=== PATIENT | female | born 1950 | race Caucasian/White ===

== ENCOUNTER 2018-06-17 14:59 | Emergency (ER) | payer MEDICARE, OTHER, SELFPAY ==
[2018-06-17 15:00] VITALS: BP 157/79; PULSE 84; RESP 20; TEMP 36.4; O2SAT 97; BMI 35.2
--- NOTE | 2018-06-17 15:06 | ED.ABDPAIN ---
HPI - Abdominal Pain <Rani Singh PA-C - Last Filed: 06/17/18 21:19> General Chief Complaint: Abdominal Pain Stated Complaint: lower left side extreme pain Time Seen by Provider: 06/17/18 15:05 Source: patient Mode of arrival: ambulatory Limitations: no limitations History of Present Illness HPI narrative: This 67-year-old female comes in today with complaint of left-sided abdominal pain which she thinks is recurrent diverticulitis. She states that she has had this many times and wanted to get this addressed early as it tends to be worse when she waits as in the past. She states that pain started yesterday, on the left side mainly in the lower abdomen. She states that she has been drinking a little bit of fluids today but has avoided eating because ?I know better?. She states she did eat some pumpkin pie last night. She states pain has increased slightly today, better lying flat, worse with trying to eat or moving around. She states that she has a little bit of nausea, has not had any vomiting. She denies any fever, chills, sweats. She denies any flank pain. She denies any urinary symptoms. She denies any bowel habit changes or blood in the stools. She denies any chest pain, dyspnea, or other new complaints and states that this feels similar to previous diverticulitis. She states that she also has a history of duodenal ulcer a long time ago and this pain feels much different than that. Related Data Previous Rx's Medication Instructions Recorded levofloxacin [Levaquin] 750 mg PO DAILY 7 Days tab 06/17/18 metronidazole [Flagyl] 500 mg PO TID #21 tab 06/17/18 tramadol 50 mg PO Q6H PRN #10 tab 06/17/18 Allergies Allergy/AdvReac Type Severity Reaction Status Date / Time aspirin Allergy Verified 06/17/18 15:38 Review of Systems <Rani Singh PA-C - Last Filed: 06/17/18 21:19> Review of Systems All systems reviewed & are unremarkable except as noted in HPI and below Exam <Rani Singh PA-C - Last Filed: 06/17/18 21:19> Narrative Exam Narrative: GENERAL APPEARANCE: Patient resting comfortably, in no distress. HEENT: PERRL, EOMI, no scleral icterus, normal oropharynx NECK: Supple LUNGS: Clear to auscultation bilaterally. HEART: Rate and rhythm regular, normal S1 and S2, no S3 or S4. ABDOMEN: Soft, nondistended, bowel sounds present x 4 quadrants, no masses palpable, no hepatosplenomegaly. Moderate left lower to left mid quadrant tenderness without guarding or rebound. No tenderness elsewhere. No CVAT EXTREMITIES: No edema, no calf tenderness DERMATOLOGIC: No jaundice or exanthem NEUROLOGIC: Alert and oriented with normal speech and coordination Initial Vital Signs Initial Vital Signs: Vital Signs Temperature 97.5 F L 06/17/18 15:00 Pulse Rate 84 06/17/18 15:00 Respiratory Rate 20 06/17/18 15:00 Blood Pressure 157/79 H 06/17/18 15:00 Pulse Oximetry 97 06/17/18 15:00 <Pola Arreola DO - Last Filed: 06/18/18 07:01> Initial Vital Signs Initial Vital Signs: Vital Signs Temperature 97.5 F L 06/17/18 15:00 Pulse Rate 84 06/17/18 15:00 Respiratory Rate 20 06/17/18 15:00 Blood Pressure 157/79 H 06/17/18 15:00 Pulse Oximetry 97 06/17/18 15:00 Course <Rani Singh PA-C - Last Filed: 06/17/18 21:19> Additional Information: patient is feeling markedly improved prior to discharge. Given her history and findings, reasonable to treat her as an outpatient. Antibiotics were started here and she was given a sufficient supply until morning. She uses tramadol at home for exacerbations and can continue this as needed. She agree to return if any acutely worsening symptoms. Orders Ordered: Discontinued Medications Hydromorphone HCl (Dilaudid) 0.5 mg IV NOW ONE Stop: 06/17/18 15:22 Last Admin: 06/17/18 15:49 Dose: 0.5 mg Sodium Chloride (Normal Saline 0.9%) 1,000 mls @ 1,000 mls/hr IV BOLUS ONE Stop: 06/17/18 16:20 Last Infusion: 06/17/18 17:02 Dose: 0 mls/hr Admin: 06/17/18 15:46 Dose: 1,000 mls/hr Ketorolac Tromethamine (Toradol) 15 mg IV NOW ONE Stop: 06/17/18 15:22 Last Admin: 06/17/18 15:48 Dose: 15 mg Levofloxacin (Levaquin) 750 mg PO NOW ONE Stop: 06/17/18 16:24 Last Admin: 06/17/18 16:59 Dose: 750 mg Metronidazole (Metronidazole) 500 mg PO Q8H Stop: 06/17/18 23:59 Ondansetron HCl (Zofran Odt) 4 mg PO NOW ONE Stop: 06/17/18 15:22 Last Admin: 06/17/18 15:49 Dose: 4 mg Ondansetron HCl (Zofran Odt Prepack) 1 bottle MISC SEEINSTR ONE Stop: 06/17/18 17:24 Last Admin: 06/17/18 17:43 Dose: 1 bottle Tramadol HCl (Ultram 50mg Prepack) 1 bottle MISC SEEINSTR ONE Stop: 06/17/18 17:24 Last Admin: 06/17/18 17:42 Dose: 1 bottle Vital Signs - 8 hr 06/17/18 15:00 06/17/18 15:45 06/17/18 16:00 Temperature 97.5 F L Pulse Rate 84 74 76 Respiratory Rate 20 16 16 Blood Pressure 157/79 H Blood Pressure [Left Arm] 136/40 L 132/66 Pulse Oximetry 97 96 93 06/17/18 16:08 06/17/18 16:30 06/17/18 17:54 Temperature Pulse Rate 71 71 Respiratory Rate 19 16 Blood Pressure Blood Pressure [Left Arm] 136/67 136/67 Pulse Oximetry 88 L 97 96 <Pola Arreola DO - Last Filed: 06/18/18 07:01> Orders Ordered: Discontinued Medications Hydromorphone HCl (Dilaudid) 0.5 mg IV NOW ONE Stop: 06/17/18 15:22 Last Admin: 06/17/18 15:49 Dose: 0.5 mg Sodium Chloride (Normal Saline 0.9%) 1,000 mls @ 1,000 mls/hr IV BOLUS ONE Stop: 06/17/18 16:20 Last Infusion: 06/17/18 17:02 Dose: 0 mls/hr Admin: 06/17/18 15:46 Dose: 1,000 mls/hr Ketorolac Tromethamine (Toradol) 15 mg IV NOW ONE Stop: 06/17/18 15:22 Last Admin: 06/17/18 15:48 Dose: 15 mg Levofloxacin (Levaquin) 750 mg PO NOW ONE Stop: 06/17/18 16:24 Last Admin: 06/17/18 16:59 Dose: 750 mg Metronidazole (Metronidazole) 500 mg PO Q8H Stop: 06/17/18 23:59 Ondansetron HCl (Zofran Odt) 4 mg PO NOW ONE Stop: 06/17/18 15:22 Last Admin: 06/17/18 15:49 Dose: 4 mg Ondansetron HCl (Zofran Odt Prepack) 1 bottle MISC SEEINSTR ONE Stop: 06/17/18 17:24 Last Admin: 06/17/18 17:43 Dose: 1 bottle Tramadol HCl (Ultram 50mg Prepack) 1 bottle MISC SEEINSTR ONE Stop: 06/17/18 17:24 Last Admin: 06/17/18 17:42 Dose: 1 bottle Vital Signs - 8 hr 06/17/18 15:00 06/17/18 15:45 06/17/18 16:00 Temperature 97.5 F L Pulse Rate 84 74 76 Respiratory Rate 20 16 16 Blood Pressure 157/79 H Blood Pressure [Left Arm] 136/40 L 132/66 Pulse Oximetry 97 96 93 06/17/18 16:08 06/17/18 16:30 06/17/18 17:54 Temperature Pulse Rate 71 71 Respiratory Rate 19 16 Blood Pressure Blood Pressure [Left Arm] 136/67 136/67 Pulse Oximetry 88 L 97 96 MDM - Abdominal Pain <Rani Singh PA-C - Last Filed: 06/17/18 21:19> Lab Data Result diagrams: 06/17/18 15:26 06/17/18 15:26 Lab Results 06/17/18 06/17/18 Range/Units 15:26 15:26 WBC 10.5 (4.5-11.0) X10^3/uL RBC 5.05 (4.0-5.2) X10^6/uL Hgb 12.9 (12.0-16.0) g/dL Hct 39.8 (36-46) % MCV 78.8 L (80-100) fL MCH 25.6 L (26-34) PG MCHC 32.5 (30-36) % RDW 14.8 (11.6-14.8) % Plt Count 322 (150-400) X10^3/uL Neut % (Auto) 72.6 (50-75) % Lymph % (Auto) 17.2 L (25-40) % [place] % (Auto) 8.2 (3-14) % Eos % (Auto) 1.4 L (2-4) % Baso % (Auto) 0.6 (0-2) % Neut # (Auto) 7600 H (1104-4903) /uL Sodium 143 (137-145) mmol/L Potassium 4.3 (3.4-5.1) mmol/L Chloride 100 (98-107) mmol/L Carbon Dioxide 30 (22-32) mmol/L BUN 13 (7-17) mg/dL Creatinine 0.80 (0.52-1.04) mg/dL Estimated GFR > 60.0 (>60) mL/min BUN/Creatinine Ratio 16.3 (6-22) Glucose 106 (80-110) mg/dL Calcium 9.2 (8.4-10.2) mg/dL Total Bilirubin 0.4 (0.2-1.3) mg/dL AST 24 (14-36) IU/L ALT 27 (9-52) IU/L Alkaline Phosphatase 102 (38-126) U/L Total Protein 7.9 (6.3-8.2) g/dL Albumin 4.3 (3.5-5.0) g/dL Globulin 3.6 (1.7-4.1) g/dL Albumin/Globulin Ratio 1.2 (1.0-2.8) Lipase 36 (23-300) U/L <Pola Arreola, - Last Filed: 06/18/18 07:01> Lab Data Lab Results 06/17/18 06/17/18 Range/Units 15:26 15:26 WBC 10.5 (4.5-11.0) X10^3/uL RBC 5.05 (4.0-5.2) X10^6/uL Hgb 12.9 (12.0-16.0) g/dL Hct 39.8 (36-46) % MCV 78.8 L (80-100) fL MCH 25.6 L (26-34) PG MCHC 32.5 (30-36) % RDW 14.8 (11.6-14.8) % Plt Count 322 (150-400) X10^3/uL Neut % (Auto) 72.6 (50-75) % Lymph % (Auto) 17.2 L (25-40) % [place] % (Auto) 8.2 (3-14) % Eos % (Auto) 1.4 L (2-4) % Baso % (Auto) 0.6 (0-2) % Neut # (Auto) 7600 H (7419-4341) /uL Sodium 143 (137-145) mmol/L Potassium 4.3 (3.4-5.1) mmol/L Chloride 100 (98-107) mmol/L Carbon Dioxide 30 (22-32) mmol/L BUN 13 (7-17) mg/dL Creatinine 0.80 (0.52-1.04) mg/dL Estimated GFR > 60.0 (>60) mL/min BUN/Creatinine Ratio 16.3 (6-22) Glucose 106 (80-110) mg/dL Calcium 9.2 (8.4-10.2) mg/dL Total Bilirubin 0.4 (0.2-1.3) mg/dL AST 24 (14-36) IU/L ALT 27 (9-52) IU/L Alkaline Phosphatase 102 (38-126) U/L Total Protein 7.9 (6.3-8.2) g/dL Albumin 4.3 (3.5-5.0) g/dL Globulin 3.6 (1.7-4.1) g/dL Albumin/Globulin Ratio 1.2 (1.0-2.8) Lipase 36 (23-300) U/L Discharge Plan Departure Patient Disposition: Home Clinical Impression: Diverticulitis Discharge Date/Time: 06/17/18 17:59 Interventions: ED Discharge Assessment Last Done: 06/17/18 17:58 Instructions: Diverticulitis Activity Restrictions/Additional Instructions: I agree with you that you likely have recurrent diverticulitis based on your exam and testing today. Since you have address this early, it is reasonable to treat to as an outpatient with oral antibiotics, however you need to return as we talked about if you have any acutely worsening symptoms such as severe pain, or new symptoms such as protracted vomiting or fever. You have had the 1st dose of levofloxacin (related to ciprofloxacin that you have taken in the past) this evening, and you will not need another dose until tomorrow evening. Take an additional metronidazole at bedtime this evening and another dose tomorrow morning. Please seed cone picker the remainder of these prescriptions at your pharmacy tomorrow. I have also given you a prescription for tramadol if needed for pain since you have done well with that in the past. Please take it with Tylenol as they work well together. Please follow-up with your PCP for recheck in 2-3 days to recheck. Please avoid solid food and to your feeling better, continue clear liquids, broths, and then you can start on low residue, bland foods such as applesauce, white rice, and bananas as you start to feel better, and gradually resume your normal diet as you have in the past with your diverticulitis flares Prescriptions: New metronidazole [Flagyl] 500 mg tablet 500 mg PO TID Qty: 21 RF: 0 tramadol 50 mg tablet 50 mg PO Q6H PRN (Reason: acute abdominal pain) Qty: 10 RF: 0 levofloxacin [Levaquin] 750 mg tablet 750 mg PO DAILY 7 Days RF: 0 Referrals: Bibiana Hollingsworth ARNP [Non-Staff] - <Pola Arreola DO - Last Filed: 06/18/18 07:01> [facility] Attestation: I was available for consultation during this patient's emergency department encounter
[2018-06-17 15:45] VITALS: BP 136/40; PULSE 74; RESP 16; O2SAT 96
[2018-06-17] MEDS: SODIUM CHLORIDE 0.9% 1,000 ML 1000 ML IV (15:46)
[2018-06-17 15:48] LABS: Alanine Aminotransferase 27 IU/L (9-52); Albumin 4.3 g/dL (3.5-5.0); Albumin Globulin Ratio 1.2 (1.0-2.8); Alkaline Phosphatase 102 U/L (38-126); Aspartate Aminotransferase 24 IU/L (14-36); BUN Creatinine Ratio 16.3 (6-22); Bilirubin Total 0.4 mg/dL (0.2-1.3); Blood Urea Nitrogen 13 mg/dL (7-17); Calcium 9.2 mg/dL (8.4-10.2); Carbon Dioxide 30 mmol/L (22-32); Chloride 100 mmol/L (98-107); Estimated Glomerular Filt Rate > 60.0 mL/min (>60); Globulin 3.6 g/dL (1.7-4.1); Glucose 106 mg/dL (80-110); HEMOLYSIS < 15 (0-50); Lipase 36 U/L (23-300); Potassium 4.3 mmol/L (3.4-5.1); Sodium 143 mmol/L (137-145); Total Protein 7.9 g/dL (6.3-8.2)
[2018-06-17] MEDS: KETOROLAC 15 MG/ML VIAL IV (15:48)
[2018-06-17] MEDS: HYDROMORPHONE 1 MG INJ 0.5 MG IV (15:49)
[2018-06-17] MEDS: ONDANSETRON 4 MG ODT PO (15:49)
[2018-06-17 15:55] LABS: Add Manual Diff / Slide Review NO; Basophils Percent Auto 0.6 % (0-2); Eosinophils Percent Auto 1.4 % (2-4); Hematocrit 39.8 % (36-46); Hemoglobin 12.9 g/dL (12.0-16.0); Lymphocytes Percent Auto 17.2 % (25-40); Mean Corpuscular HGB Conc 32.5 % (30-36); Mean Corpuscular Hemoglobin 25.6 PG (26-34); Mean Corpuscular Volume 78.8 fL (80-100); Monocytes Percent Auto 8.2 % (3-14); Neutrophils Absolute Auto 7600 /uL (3000-5900); Neutrophils Percent Auto 72.6 % (50-75); Platelet Count 322 X10^3/uL (150-400); Red Blood Cell Count 5.05 X10^6/uL (4.0-5.2); Red Cell Distribution Width 14.8 % (11.6-14.8); White Blood Cell Count 10.5 X10^3/uL (4.5-11.0)
[2018-06-17 16:00] VITALS: BP 132/66; PULSE 76; RESP 16; O2SAT 93
[2018-06-17 16:08] VITALS: O2SAT 88
--- NOTE | 2018-06-17 16:08 | PC.NURSE ---
oxygen applied 2lmp via nc. increase to 97 with o2
[2018-06-17 16:30] VITALS: BP 136/67; PULSE 71; RESP 19; O2SAT 97
[2018-06-17] MEDS: levoFLOXacin 250 MG TABLET 750 MG PO (16:59)
[2018-06-17] MEDS: TRAMADOL 50 MG PREPACK 1 BOTTLE MISC (17:42)
[2018-06-17] MEDS: ONDANSETRON 4 MG ODT PREPACK 1 BOTTLE MISC (17:43)
[2018-06-17 17:54] VITALS: BP 136/67; PULSE 71; RESP 16; O2SAT 96
== END 2018-06-17 17:59 | disposition home or self-care (01) ==
PROVIDERS: Emergency Provider Internal Medicine
DX: K57.92 Diverticulitis of intestine, part unspecified, without perforation or abscess without bleeding (principal)
CPT/HCPCS: 36591; 80053; 83690; 85025; 96361; 96374; 96375; 99283; 99284; J1170; J1885

== ENCOUNTER → 2018-10-14 13:18 | Outpatient (CLI) | payer MEDICARE, OTHER, SELFPAY ==
--- NOTE | 2018-10-14 | DI.CT.S_ITS ---
PROCEDURE: CT ABDOMEN WO/W CON INDICATIONS: Hepatomegaly TECHNIQUE: 4 phase scanning was performed. Non-contrast 5 mm axial sections acquired from the diaphragm to the iliac crests. Following the administration of intravenous contrast, 5 mm thick arterial-phase, portal venous-phase, and 5-minute delayed phase images were acquired through the liver. 5 mm thick coronal and sagittal reformats were performed. For radiation dose reduction, the following was used: automated exposure control, adjustment of mA and/or kV according to patient size. COMPARISON: [facility], , US LIMITED ABDOMEN, 09/23/2018, 9:37. FINDINGS: Image quality: Excellent. Lung bases: Lung bases are clear. Heart size is normal. Liver: 18.8 cm craniocaudad, and no hepatic mass or biliary distention is present. Liver appears fatty infiltrated, as was seen during recent ultrasound scanning 09/23/18. At the inferior margin of the anterior right hepatic lobe there is a sharply demarcated ovoid structure which measures water in the internal radiodensity and measures 3.3 cm AP, 3.7 cm transverse and approximately 2.9 cm craniocaudad. This shows a perceptible enhancing rim, thin and sharply demarcated, on delayed postcontrast imaging. The internal radiodensity does not increase. Other solid organs: Gallbladder appears absent, and patient reports having prior cholecystectomy in 1988.. Biliary system is non dilated. Pancreas is normal in morphology. Spleen is normal in size and enhancement. No adrenal nodules. Both kidneys demonstrate normal size and enhancement, without hydronephrosis or nephrolithiasis. Nodes and vessels: No retroperitoneal or mesenteric adenopathy by size criteria. Aorta and inferior vena cava are normal in size. Bowel and peritoneum: Unenhanced bowel loops are normal in caliber. No free fluid or air. Bones: No suspicious bony lesions. No vertebral body compression fractures. Miscellaneous: No ventral hernias. IMPRESSION: Fatty infiltration throughout the liver which is only mildly enlarged, without splenomegaly. No varices or ascites is found. Large body habitus, quality of visualization is somewhat limited. Within the liver parenchyma at the anterior border of the inferior right hepatic lobe there is a sharply demarcated ovoid structure measuring up to 3.3 x 3.7 x 2.9 cm which has water internal radiodensity and is not associated with abnormal internal enhancement. It does have a thin perceptible enhancing rim. Etiology is uncertain but likely benign. This structure is relatively easily seen by ultrasound and therefore can't be followed by ultrasound for globe changer time. Biopsy at this time would not be recommended. Rather, targeted single organ ultrasound followup of this cystic structure is recommended in 6 months, and 6 months thereafter to assess for globe changer time. The internal echotexture was mildly heterogeneous on the ultrasound scanning. Septations or internal flow was not seen. The internal heterogeneity could represent proteinaceous content but the followup by ultrasound is recommended to ensure that this remains a benign-appearing structure over time. Prior cholecystectomy. Dictated by: Tenzin Alberto M.D. on 10/14/2018 at 15:45 Approved by: Tenzin Alberto M.D. on 10/14/2018 at 15:54
== END ==
PROVIDERS: Visit Provider Internal Medicine Gastroenterology
DX: R16.0 Hepatomegaly, not elsewhere classified (principal); Z90.49 Acquired absence of other specified parts of digestive tract
CPT/HCPCS: 74170; Q9967

== ENCOUNTER 2018-11-02 20:07 | Emergency (ER) | payer MEDICARE, OTHER, SELFPAY ==
[2018-11-02 20:20] VITALS: BP 176/85; PULSE 111; RESP 20; TEMP 36.9; O2SAT 96; BMI 45.6
--- NOTE | 2018-11-02 22:25 | DI.RAD.S_ITS ---
PROCEDURE: XR CHEST 1V INDICATIONS: chest pain TECHNIQUE: One view of the chest was acquired. COMPARISON: None. FINDINGS: Surgical changes and devices: None. Lungs and pleura: Lungs are clear. No pleural effusions or pneumothorax. Mediastinum: Mediastinal contours appear normal. Heart size is normal. Bones and chest wall: No suspicious bony lesions. Overlying soft tissues appear unremarkable. IMPRESSION: Normal for age, source of current chest pain symptoms is not seen. Dictated by: Tenzin Alberto M.D. on 11/03/2018 at 8:26 Approved by: Tenzin Alberto M.D. on 11/03/2018 at 8:27
[2018-11-02] MEDS: SODIUM CHLORIDE 0.9% 1,000 ML 150 ML IV (22:31)
[2018-11-02 22:50] LABS: Add Manual Diff / Slide Review NO; Basophils Absolute Auto 0 /uL (0-100); Basophils Percent Auto 0.2 % (0-2); Eosinophils Absolute Auto 100 /uL (0-450); Eosinophils Percent Auto 0.5 % (2-4); Hematocrit 38.1 % (36-46); Hemoglobin 12.7 g/dL (12.0-16.0); Lymphocytes Absolute Auto 1600 /uL (1100-4500); Lymphocytes Percent Auto 12.7 % (25-40); Mean Corpuscular HGB Conc 33.4 % (30-36); Mean Corpuscular Hemoglobin 26.4 PG (26-34); Mean Corpuscular Volume 78.8 fL (80-100); Monocytes Absolute Auto 800 /uL (0-900); Monocytes Percent Auto 6.3 % (3-14); Neutrophils Absolute Auto 10300 /uL (1500-7000); Neutrophils Percent Auto 80.3 % (50-75); Platelet Count 297 X10^3/uL (150-400); Red Blood Cell Count 4.83 X10^6/uL (4.0-5.2); Red Cell Distribution Width 14.6 % (11.6-14.8); White Blood Cell Count 12.8 X10^3/uL (4.5-11.0)
[2018-11-02 23:01] LABS: Alanine Aminotransferase 22 IU/L (9-52); Albumin 4.4 g/dL (3.5-5.0); Albumin Globulin Ratio 1.2 (1.0-2.8); Alkaline Phosphatase 101 U/L (38-126); Aspartate Aminotransferase 21 IU/L (14-36); BUN Creatinine Ratio 12.2 (6-22); Bilirubin Total 0.4 mg/dL (0.2-1.3); Blood Urea Nitrogen 11 mg/dL (7-17); Calcium 9.2 mg/dL (8.4-10.2); Carbon Dioxide 27 mmol/L (22-32); Chloride 101 mmol/L (98-107); Creatine Kinase 39 U/L (30-135); Estimated Glomerular Filt Rate > 60.0 mL/min (>60); Globulin 3.8 g/dL (1.7-4.1); Glucose 140 mg/dL (80-110); HEMOLYSIS < 15 (0-50); Lipase 37 U/L (23-300); Potassium 4.1 mmol/L (3.4-5.1); Sodium 137 mmol/L (137-145); Total Protein 8.2 g/dL (6.3-8.2)
[2018-11-02 23:13] LABS: Troponin I < 0.012 ng/mL (0.01-0.034)
--- NOTE | 2018-11-02 23:15 | DI.CT.S_ITS ---
PROCEDURE: CT ABDOMEN PELVIS W CON INDICATIONS: severe abdominal pain, hx diverticulitis TECHNIQUE: After the administration of intravenous contrast, 5 mm thick sections acquired from the diaphragm to the symphysis. 5 mm coronal and sagittal reformats were acquired. For radiation dose reduction, the following was used: automated exposure control, adjustment of mA and/or kV according to patient size. COMPARISON: [facility], CT, CT ABDOMEN WO/W CON, 10/14/2018, 13:39. FINDINGS: Image quality: Excellent. ABDOMEN: Lung bases: Lung bases are clear. Heart size is normal. Solid organs: Liver is normal in size and enhancement except for the previously identified apparent cystic structure with a perceptible enhancing wall, anterior border of the liver parenchyma on the right, measuring up to 3.7 cm. Morphology is unchanged. No inflammation is associated. This was discussed in detail on the CT report from 10/14/18. Gallbladder has been resected. Biliary system is non dilated. Pancreas enhances normally. Spleen is normal in size and enhancement. No adrenal nodules. Kidneys demonstrate normal size and enhancement, without hydronephrosis. . Peritoneum and bowel: Small bowel loops demonstrate normal wall thickness and caliber. The colon however demonstrates relatively prominent diverticulosis, more prominently involved distally than proximally but currently in the middle third of the transverse colon there is acute diverticulitis without peridiverticular abscess as indicated by mild mural thickening of the transverse colon and edema within the adjacent omental fat in the area previously free of any inflammation 10/14/18. No free fluid or air. Nodes and vessels: No retroperitoneal or mesenteric adenopathy by size criteria. Aorta and inferior vena cava are normal in size. Miscellaneous: No ventral hernias. PELVIS: Genitourinary: Bladder wall thickness is normal. Miscellaneous: No inguinal hernias or adenopathy. Sigmoid diverticulosis is extensive, and there is a area of mild focal mural thickening and central fluid within with the fluid measuring approximately 11 mm in diameter in dimension, but without significant adjacent pericolonic fat edema. Bones: No suspicious bony lesions. No vertebral body compression fractures. IMPRESSION: Extensive diverticulosis involving the colon, most prominent distally but currently there is definite acute diverticulitis at the middle third of the transverse colon without peridiverticular abscess. Note also is made of a suspected containing focus of prior diverticulitis with central fluid at the middle third of the sigmoid colon but without adjacent pericolonic edema in the fat along the colon border. This presumably is a small contained diverticular perforation, involuting. The first area of diverticulitis discussed above is in a region well-visualized only several weeks ago and normal at that time. This documents acute diverticulitis. A second area discussed above was not included on the prior CT scan in 10/14/18. Prior cholecystectomy. Stable appearance of a fluid-filled structure with a thin perceptible rim exophytic from the anterior border of the right hepatic lobe. Dictated by: Tenzin Alberto M.D. on 11/03/2018 at 8:46 Approved by: Tenzin Alberto M.D. on 11/03/2018 at 8:56
[2018-11-02 23:21] VITALS: BP 159/70; PULSE 95; RESP 21; O2SAT 95
[2018-11-02] MEDS: HYDROMORPHONE 0.5 MG INJ IV (23:31)
--- NOTE | 2018-11-02 23:32 | ED_ITS ---
HPI - Abdominal Pain General Chief Complaint: Abdominal Pain Stated Complaint: CHEST PAIN, DIVERTICULITIS FLARE Time Seen by Provider: 11/02/18 22:04 Source: patient and family Mode of arrival: ambulatory Limitations: no limitations History of Present Illness HPI narrative: 68-year-old female nonsmoker with history of diverticulitis presents with a chief complaint of lower abdominal pain and nausea with some loose stool over the course of the day. She has had a low-grade fever. Her pain is worse with motion and improves with rest. She denies any radiation. She is not dizzy nor weak or lightheaded. She had a quick bleb of vague chest pain in the car ride here. She has a history of diverticulitis and states this feels the same. She denies any obvious dietary indiscretions which may have contributed. MD complaint: abdominal pain Onset (ago): hour(s) Pain Consistency: constant Location: diffuse Severity: mild Quality: cramping and aching Radiation: none Migration to: no migration Relieving factors: rest Exacerbating factors: movement Associated symptoms: nausea Related Data Previous Rx's Medication Instructions Recorded metronidazole [Flagyl] 500 mg PO TID #21 tab 06/17/18 tramadol 50 mg PO Q6H PRN #10 tab 06/17/18 ciprofloxacin HCl 500 mg PO BID #20 tab 11/03/18 hydrocodone-acetaminophen 1 tab PO Q4-6H PRN #10 tab 11/03/18 metronidazole [Flagyl] 500 mg PO TID #30 tab 11/03/18 Allergies Allergy/AdvReac Type Severity Reaction Status Date / Time aspirin Allergy Verified 06/17/18 15:38 Review of Systems Constitutional Denies chills, Denies fever(s), Denies lethargy and Denies weakness Eyes Denies change in vision, Denies eye discharge, Denies irritation and Denies loss of vision ENT Ears, Nose, Mouth, and Throat: Denies change in voice, Denies neck pain and Denies sore throat Cardiovascular Reports chest pain, Denies irregular heart rhythm, Denies lightheadedness, Denies palpitations, Denies dyspnea, Denies dyspnea on exertion and Denies orthopnea Respiratory Denies cough, Denies dyspnea, Denies dyspnea on exertion and Denies wheezing Gastrointestinal Gastrointestinal: Reports abdominal pain, Denies change in bowel habits, Denies diarrhea, Reports nausea and Denies vomiting Genitourinary Denies hematuria, Denies flank pain, Denies urinary incontinence and Denies urinary urgency Musculoskeletal Denies neck pain Integumentary/Breasts Denies pruritus, Denies erythema, Denies rash and Denies wounds Neurologic Denies confusion, Denies loss of vision and Denies weakness Psychiatric Denies anxiety, Denies confusion, Denies depression, Denies homicidal ideation and Denies suicidal ideation Endocrine Denies palpitations Hematologic/Lymphatic Denies easy bruising Allergic/Immunologic Denies wheezing [facility] Medical History History of diverticulitis of colon (Acute) Dizziness (Chronic) Impairment of balance (Chronic) History of duodenal ulcer (Resolved) Surgical History History of bilateral cataract extraction (Resolved) Status post appendectomy (Resolved) Status post carpal tunnel release of both wrists (Resolved) Status post cholecystectomy (Resolved) Status post hysterectomy (Resolved) Social History (Updated 06/17/18 @ 15:33 by Rani Singh PA-C) Smoking Status: Never smoker alcohol intake: never substance use type: does not use Social History Smoking Status: Never smoker alcohol intake: never substance use type: does not use Exam Narrative Exam Narrative: GENERAL: 68-year-old female, morbidly obese, resting and complaining of abdominal pain HEAD: Atraumatic. Normocephalic. No temporal or scalp tenderness. EYES: Pupils equal round and reactive. Extraocular motions intact. No scleral icterus. No injection or drainage. ENT: Nose without bleeding, purulent drainage or septal hematoma. Throat without erythema, tonsillar hypertrophy or exudate. Uvula midline. Airway patent. NECK: Trachea midline. No JVD or lymphadenopathy. Supple, nontender, no meningeal signs. CARDIOVASCULAR: Regular rate and rhythm without murmurs, gallops, or rubs. RESPIRATORY: Clear to auscultation. Breath sounds equal bilaterally. No wheezes, rales, or rhonchi. GASTROINTESTINAL: Abdomen soft, generalized tenderness, nondistended. No hepato- splenomegaly, or palpable masses. No guarding. EXTREMITIES: No clubbing, cyanosis, or edema. No joint tenderness, effusion, or edema noted. BACK: Nontender without deformity or crepitance. No flank tenderness. NEURO: AOx3. SKIN: No rash or erythema. Initial Vital Signs Initial Vital Signs: Vital Signs Temperature 98.4 F 11/02/18 20:20 Pulse Rate 111 H 11/02/18 20:20 Respiratory Rate 20 11/02/18 20:20 Blood Pressure 176/85 H 11/02/18 20:20 Pulse Oximetry 96 11/02/18 20:20 Course Orders Ordered: ED Orders 11/02/18 22:25 XR chest 1V Stat 11/02/18 22:45 Complete Blood Count AUTO DIFF Stat Comprehensive Metabolic Panel Stat Lipase Stat Troponin & CK Cardiac Panel Stat 11/02/18 23:15 CT abdomen pelvis w con Stat Discontinued Medications Hydrocodone Bitart/Acetaminophen (Vicodin Prepack) 1 bottle MISC SEEINSTR ONE Stop: 11/03/18 01:12 Last Admin: 11/03/18 01:29 Dose: 1 bottle Hydromorphone HCl (Dilaudid) 0.5 mg IV NOW ONE Stop: 11/02/18 23:16 Last Admin: 11/02/18 23:31 Dose: 0.5 mg Sodium Chloride (Normal Saline 0.9%) 1,000 mls @ 150 mls/hr IV CONT JIMMIE Last Infusion: 11/03/18 01:43 Dose: 0 mls/hr Admin: 11/02/18 22:31 Dose: 150 mls/hr Levofloxacin (Levaquin) 500 mg PO NOW ONE Stop: 11/03/18 01:12 Last Admin: 11/03/18 01:29 Dose: 500 mg Vital Signs - 8 hr 11/02/18 23:21 11/03/18 01:35 Pulse Rate 95 H 86 Respiratory Rate 21 16 Blood Pressure 137/65 Blood Pressure [Right Wrist] 159/70 H Pulse Oximetry 95 100 MDM - Abdominal Pain Lab Data Result diagrams: 11/02/18 22:45 11/02/18 22:45 Lab Results 11/02/18 11/02/18 Range/Units 22:45 22:45 WBC 12.8 H (4.5-11.0) X10^3/uL RBC 4.83 (4.0-5.2) X10^6/uL Hgb 12.7 (12.0-16.0) g/dL Hct 38.1 (36-46) % MCV 78.8 L (80-100) fL MCH 26.4 (26-34) PG MCHC 33.4 (30-36) % RDW 14.6 (11.6-14.8) % Plt Count 297 (150-400) X10^3/uL Neut % (Auto) 80.3 H (50-75) % Lymph % (Auto) 12.7 L (25-40) % [place] % (Auto) 6.3 (3-14) % Eos % (Auto) 0.5 L (2-4) % Baso % (Auto) 0.2 (0-2) % Neut # (Auto) 48525 H (5075-4416) /uL Lymph # (Auto) 1600 (4913-1755) /uL [place] # (Auto) 800 (0-900) /uL Eos # (Auto) 100 (0-450) /uL Baso # (Auto) 0 (0-100) /uL Sodium 137 (137-145) mmol/L Potassium 4.1 (3.4-5.1) mmol/L Chloride 101 (98-107) mmol/L Carbon Dioxide 27 (22-32) mmol/L BUN 11 (7-17) mg/dL Creatinine 0.90 (0.52-1.04) mg/dL Estimated GFR > 60.0 (>60) mL/min BUN/Creatinine Ratio 12.2 (6-22) Glucose 140 H (80-110) mg/dL Calcium 9.2 (8.4-10.2) mg/dL Total Bilirubin 0.4 (0.2-1.3) mg/dL AST 21 (14-36) IU/L ALT 22 (9-52) IU/L Alkaline Phosphatase 101 (38-126) U/L Total Creatine Kinase 39 (30-135) U/L CK-MB (CK-2) TNP CK-MB (CK-2) Rel Index TNP Troponin I < 0.012 (0.01-0.034) ng/mL Total Protein 8.2 (6.3-8.2) g/dL Albumin 4.4 (3.5-5.0) g/dL Globulin 3.8 (1.7-4.1) g/dL Albumin/Globulin Ratio 1.2 (1.0-2.8) Lipase 37 (23-300) U/L Imaging Data CT scan - abdomen: Radiologist's impression: Diverticulitis without perforation or abscess Discharge Plan Departure Patient Disposition: Home Clinical Impression: Diverticulitis Discharge Date/Time: 11/03/18 01:35 Interventions: ED Discharge Assessment Last Done: 11/03/18 01:35 Instructions: DI for Diverticulitis Activity Restrictions/Additional Instructions: 1. Drink plenty of fluids with frequent small sips. 2. For the next 24 hours a clear liquid diet is advised. After that please employ a brat diet which would include bananas, rice, apples, toast. 3. Please take medications as directed. 4. Please follow-up with your doctor in the next 1-2 days. Call the office for an appointment. 5. Please return to the emergency Department for any worsening or persistent symptoms, such as increasing pain or fever. Prescriptions: New hydrocodone-acetaminophen 5-325 mg tablet 1 tab PO Q4-6H PRN (Reason: pain) Qty: 10 RF: 0 metronidazole [Flagyl] 500 mg tablet 500 mg PO TID Qty: 30 RF: 0 ciprofloxacin HCl 500 mg tablet 500 mg PO BID Qty: 20 RF: 0 No Action metronidazole [Flagyl] 500 mg tablet 500 mg PO TID Qty: 21 RF: 0 tramadol 50 mg tablet 50 mg PO Q6H PRN (Reason: acute abdominal pain) Qty: 10 RF: 0
[2018-11-03] MEDS: levoFLOXacin 250 MG TABLET 500 MG PO (01:29)
[2018-11-03] MEDS: HYDROCODONE/ACET 5/325 PREPACK 1 BOTTLE MISC (01:29)
[2018-11-03 01:35] VITALS: BP 137/65; PULSE 86; RESP 16; O2SAT 100
== END 2018-11-03 01:35 | disposition home or self-care (01) ==
PROVIDERS: Emergency Provider Emergency Medicine
DX: K57.92 Diverticulitis of intestine, part unspecified, without perforation or abscess without bleeding (principal); R11.0 Nausea; R07.9 Chest pain, unspecified
CPT/HCPCS: 36591; 71045; 74177; 80053; 82550; 82553; 83690; 84484; 85025; 93005; 93010; 96361; 96374; 99283; 99284; J1170

== ENCOUNTER 2018-11-11 11:42 | Emergency (ER) | payer MEDICARE, OTHER, SELFPAY ==
[2018-11-11 11:59] VITALS: BP 171/84; PULSE 83; RESP 18; TEMP 36.3; O2SAT 94
--- NOTE | 2018-11-11 12:36 | ED_ITS ---
HPI - Allergic Reaction <ELDON Aguirre-BC - Last Filed: 11/11/18 14:25> General Chief complaint: Allergic Reaction Stated complaint: states allergic reaction,hives,sob Time Seen by Provider: 11/11/18 12:23 Source: patient and family Mode of arrival: ambulatory Limitations: no limitations History of Present Illness HPI narrative: The patient is a 68-year-old female never smoker who presents with a chief complaint of allergic reaction and hives. She is accompanied by her . She was started on Flagyl and Cipro last weekOn 11/03 for diverticulitis. Last night she developed an itchy rash on her legs scattered throughout her body. She denies any shortness of breath, denies any overt or pharyngeal swelling but complains of slight swelling of her tongue. She has not taken anything to feel better. She denies any new chest pain, shortness of breath, abdominal pain fevers nausea vomiting or diarrhea. She denies any dizziness or lightheadedness. Related Data Home Medications Medication Instructions Recorded Confirmed metronidazole 500 mg PO TID 11/11/18 11/11/18 Previous Rx's Medication Instructions Recorded tramadol 50 mg PO Q6H PRN #10 tab 06/17/18 ciprofloxacin HCl 500 mg PO BID #20 tab 11/03/18 hydrocodone-acetaminophen 1 tab PO Q4-6H PRN #10 tab 11/03/18 prednisone 50 mg PO DAILY #5 tab 11/11/18 Allergies Allergy/AdvReac Type Severity Reaction Status Date / Time aspirin Allergy Verified 06/17/18 15:38 ciprofloxacin AdvReac Hives Verified 11/11/18 12:04 metronidazole [From Flagyl] AdvReac Hives Verified 11/11/18 12:04 Review of Systems <ELDON Aguirre-BC - Last Filed: 11/11/18 14:25> Review of Systems GENERAL: Denies chills, fatigue, malaise, fever, sweats. HEENT: Denies sinus pain, ear pain, sore throat, difficulty swallowing, dizziness. RESPIRATORY: Denies dyspnea, cough, wheezing, hemoptysis, sputum. CARDIOVASCULAR: Denies chest pain, palpitations, orthopnea, edema, GASTROINTESTINAL: Denies nausea, vomiting, abdominal pain, diarrhea, constipation, melena. : Denies dysuria, frequency, incontinence, hematuria, urinary retention. MUSCULOSKELETAL: denies weakness, joint pain, or bony pain SKIN: See HPI NEUROLOGIC: Denies weakness, headache, numbness, change in speech, confusion, seizures, incoordination. PSYCHIATRIC: No concerning psychosocial issues. 12 point review of systems is negative except for those stated above PFSH <SEVERINO Aguirre - Last Filed: 11/11/18 14:25> Medical History History of diverticulitis of colon (Acute) Dizziness (Chronic) Impairment of balance (Chronic) History of duodenal ulcer (Resolved) Surgical History History of bilateral cataract extraction (Resolved) Status post appendectomy (Resolved) Status post carpal tunnel release of both wrists (Resolved) Status post cholecystectomy (Resolved) Status post hysterectomy (Resolved) Social History Smoking Status: Never smoker alcohol intake: never substance use type: does not use Social History Smoking Status: Never smoker alcohol intake: never substance use type: does not use Exam <SEVERINO Aguirre - Last Filed: 11/11/18 14:25> Narrative Exam Narrative: GENERAL: Obese female lying on stretcher HEAD: Atraumatic. Normocephalic. No temporal or scalp tenderness. EYES: Pupils equal round and reactive. Extraocular motions intact. No scleral icterus. No injection or drainage. ENT: Nose without bleeding, purulent drainage or septal hematoma. Throat without erythema, tonsillar hypertrophy or exudate. Uvula midline. Airway patent. no oropharyngeal swelling noted NECK: Trachea midline. No JVD or lymphadenopathy. Supple, nontender, no meningeal signs. CARDIOVASCULAR: Regular rate and rhythm without murmurs, gallops, or rubs. RESPIRATORY: Clear to auscultation. Breath sounds equal bilaterally. No wheezes, rales, or rhonchi. No cough. No increased respiratory effort. No accessory muscle use. GASTROINTESTINAL: Abdomen soft, diffusely tender, nondistended. No hepato- splenomegaly, or palpable masses. No guarding. active bowel sounds all 4 quadrants EXTREMITIES: No clubbing, cyanosis, or edema. No joint tenderness, effusion, or edema noted. BACK: Nontender without deformity or crepitance. No flank tenderness. NEURO: AOx3. SKIN: Scattered urticaria noted bilateral thighs. 2-3 cm wheals noted. no spreading erythema or crusting. Wheals noted on thighs, bilateral arms as well as single on lobe of left ear. Initial Vital Signs Initial Vital Signs: Vital Signs Temperature 97.4 F L 11/11/18 11:59 Pulse Rate 83 11/11/18 11:59 Respiratory Rate 18 11/11/18 11:59 Blood Pressure 171/84 H 11/11/18 11:59 Pulse Oximetry 94 11/11/18 11:59 <Terri Salinas DO - Last Filed: 11/14/18 18:55> Initial Vital Signs Initial Vital Signs: Vital Signs Temperature 97.4 F L 11/11/18 11:59 Pulse Rate 83 11/11/18 11:59 Respiratory Rate 18 11/11/18 11:59 Blood Pressure 171/84 H 11/11/18 11:59 Pulse Oximetry 94 11/11/18 11:59 Course <SEVERINO Aguirre - Last Filed: 11/11/18 14:25> Orders Ordered: Discontinued Medications Diphenhydramine HCl (Benadryl) 50 mg IV NOW ONE Stop: 11/11/18 12:33 Last Admin: 11/11/18 13:04 Dose: 50 mg Famotidine (Pepcid) 20 mg in 50 mls @ 200 mls/hr IV NOW ONE Stop: 11/11/18 12:46 Last Infusion: 11/11/18 13:17 Dose: 0 mls/hr Admin: 11/11/18 13:04 Dose: 200 mls/hr Methylprednisolone (Solu-Medrol 125 Mg Vial) 125 mg IV NOW ONE Stop: 11/11/18 12:33 Last Admin: 11/11/18 13:04 Dose: 125 mg Vital Signs - 8 hr 11/11/18 11:59 11/11/18 14:15 Temperature 97.4 F L Pulse Rate 83 87 Respiratory Rate 18 20 Blood Pressure 171/84 H Blood Pressure [Right Arm] 146/87 H Pulse Oximetry 94 96 <Terri Salinas DO - Last Filed: 11/14/18 18:55> Orders Ordered: Discontinued Medications Diphenhydramine HCl (Benadryl) 50 mg IV NOW ONE Stop: 11/11/18 12:33 Last Admin: 11/11/18 13:04 Dose: 50 mg Famotidine (Pepcid) 20 mg in 50 mls @ 200 mls/hr IV NOW ONE Stop: 11/11/18 12:46 Last Infusion: 11/11/18 13:17 Dose: 0 mls/hr Admin: 11/11/18 13:04 Dose: 200 mls/hr Methylprednisolone (Solu-Medrol 125 Mg Vial) 125 mg IV NOW ONE Stop: 11/11/18 12:33 Last Admin: 11/11/18 13:04 Dose: 125 mg Vital Signs - 8 hr 11/11/18 11:59 11/11/18 14:15 Temperature 97.4 F L Pulse Rate 83 87 Respiratory Rate 18 20 Blood Pressure 171/84 H Blood Pressure [Right Arm] 146/87 H Pulse Oximetry 94 96 MDM - Allergic Reaction <BROOKE Aguirre - Last Filed: 11/11/18 14:25> MDM Narrative Medical decision making narrative: The patient is a 68-year-old female who presents with acute uticaria likely resulting from antibiotics. She was treated in the emergency department with Solu-Medrol, Benadryl and Pepcid with good results. Her hives improved after medications and she felt much better. I did discharge her with a prescription prednisone. I discussed at length that she needs to follow up with primary care provider in the next few days for re- evaluation. I did discuss the fact that she has almost completed her treatment for diverticulitis at this point time given that she does not have fever or symptoms, we will discontinue her treatment given her reaction to the antibiotics. Rather than place her on a 10 day course of Augmentin, we elected to stop antibiotics at this point time and have her follow up with her primary care provider. Patient was okay with this as she does not want to take 10 more days of antibiotics. Discussed with the patient that she can take Pepcid and prednisone tomorrow, but can take Benadryl tonight if needed. Discussed following up with her primary care provider in the next few days. Discussed coming back to the emergency department for any acute concerns return precautions of shortness of breath, tongue swelling etc. Patient was hemodynamically stable throughout her stay in the emergency department. Discharge Plan Departure Patient Disposition: Home Clinical Impression: Urticaria Allergic reaction Qualifiers: Encounter type: initial encounter Qualified Code(s): T78.40XA - Allergy, unspecified, initial encounter Discharge Date/Time: 11/11/18 14:19 Interventions: ED Discharge Assessment Last Done: 11/11/18 14:18 Instructions: DI for Hives, DI for Adverse Drug Reaction -- Allergic Activity Restrictions/Additional Instructions: Today we treated your hives with steroids and antihistamines. Have given you a burst of steroids to take over the next few days. You can start this tomorrow given that we gave you IV steroids today. You can also continue to take antihistamines such as Benadryl as needed. You can also take famotidine or Pepcid once a day. Start the prednisone and pepcid tomorrow. Monitor for any shortness of breath or difficulty breathing, or facial swelling. Please be evaluated if any of these occur. Prescriptions: New prednisone 50 mg tablet 50 mg PO DAILY Qty: 5 RF: 0 No Action tramadol 50 mg tablet 50 mg PO Q6H PRN (Reason: acute abdominal pain) Qty: 10 RF: 0 hydrocodone-acetaminophen 5-325 mg tablet 1 tab PO Q4-6H PRN (Reason: pain) Qty: 10 RF: 0 ciprofloxacin HCl 500 mg tablet 500 mg PO BID Qty: 20 RF: 0 metronidazole 250 mg tablet 500 mg PO TID RF: 0 Referrals: Bibiana Hollingsworth ARNP [Non-Staff] - <Terri Salinas DO - Last Filed: 11/14/18 18:55> Cosign ED Attending Renaldo Attestation: I was immediately available in the department for consultation. Documentation has been reviewed. I agree with assessment and plan.
[2018-11-11] MEDS: methylPREDNISolone 125 MG/2 ML VIAL IV (13:04)
[2018-11-11] MEDS: diphenhydrAMINE 50 MG/ML VIAL IV (13:04)
[2018-11-11] MEDS: FAMOTIDINE 20 MG/50 ML PIGGYBACK 200 MG IV (13:04)
[2018-11-11 14:15] VITALS: BP 146/87; PULSE 87; RESP 20; O2SAT 96
== END 2018-11-11 14:19 | disposition home or self-care (01) ==
PROVIDERS: Emergency Provider Nurse Practitioner Family
DX: T78.40XA Allergy, unspecified, initial encounter (principal); L50.9 Urticaria, unspecified
CPT/HCPCS: 36591; 96374; 96375; 99283; 99284; J1200; J2930

== ENCOUNTER 2018-12-18 09:36 | Emergency (ER) | payer MEDICARE, OTHER, SELFPAY ==
[2018-12-18 09:41] VITALS: BP 184/100; PULSE 104; RESP 27; TEMP 36.9; O2SAT 98
--- NOTE | 2018-12-18 09:52 | ED.NEUROSD ---
HPI - Neuro Symptoms/Deficit General Chief Complaint: Neuro Symptoms/Deficit Stated Complaint: SHAKING Time Seen by Provider: 12/18/18 09:51 Source: patient Mode of arrival: ambulatory Limitations: no limitations History of Present Illness HPI Narrative: The patient is a 68-year-old female who presents with shaking all over. She feels like her body goes into spasms. She woke up this morning fine however for about the last hour she has been having shaking and whole body spasms. She denies any fever she is afebrile here. She has no chest pain no shortness of breath nausea vomiting painful or frequent urination. She states that she was started on amitriptyline on December 14 50 mg at night only to help with her back pain. She has no focal weakness speech difficulty or other symptoms. Onset (ago): hour(s) On Anticoagulants: No Related Data Home Medications Medication Instructions Recorded Confirmed metronidazole 500 mg PO TID 11/11/18 11/11/18 Previous Rx's Medication Instructions Recorded tramadol 50 mg PO Q6H PRN #10 tab 06/17/18 ciprofloxacin HCl 500 mg PO BID #20 tab 11/03/18 hydrocodone-acetaminophen 1 tab PO Q4-6H PRN #10 tab 11/03/18 prednisone 50 mg PO DAILY #5 tab 11/11/18 Allergies Allergy/AdvReac Type Severity Reaction Status Date / Time aspirin Allergy Verified 12/18/18 09:46 ciprofloxacin AdvReac Hives Verified 12/18/18 09:46 metronidazole [From Flagyl] AdvReac Hives Verified 12/18/18 09:46 Review of Systems Review of Systems ROS Unobtainable: All systems reviewed & are unremarkable except as noted in HPI and below Constitutional Denies chills, Denies fever(s), Denies lethargy and Denies weakness Eyes Denies change in vision, Denies eye discharge, Denies irritation and Denies loss of vision ENT Ears, Nose, Mouth, and Throat: Denies change in voice, Denies neck pain and Denies sore throat Cardiovascular Denies chest pain, Denies irregular heart rhythm, Denies lightheadedness, Denies palpitations, Denies dyspnea, Denies dyspnea on exertion and Denies orthopnea Respiratory Denies cough, Denies dyspnea, Denies dyspnea on exertion and Denies wheezing Gastrointestinal Gastrointestinal: Denies abdominal pain, Denies change in bowel habits, Denies diarrhea, Denies nausea and Denies vomiting Genitourinary Denies hematuria, Denies flank pain, Denies urinary incontinence and Denies urinary urgency Musculoskeletal Denies neck pain Integumentary/Breasts Denies pruritus, Denies erythema, Denies rash and Denies wounds Neurologic Denies loss of vision, Reports tremor(s) (bilateral) and Denies weakness Endocrine Denies palpitations Allergic/Immunologic Denies wheezing [facility] Medical History History of diverticulitis of colon (Acute) Dizziness (Chronic) Impairment of balance (Chronic) History of duodenal ulcer (Resolved) Surgical History History of bilateral cataract extraction (Resolved) Status post appendectomy (Resolved) Status post carpal tunnel release of both wrists (Resolved) Status post cholecystectomy (Resolved) Status post hysterectomy (Resolved) Social History Smoking Status: Never smoker alcohol intake: never substance use type: does not use Social History Smoking Status: Never smoker alcohol intake: never substance use type: does not use Exam Initial Vital Signs Initial Vital Signs: Vital Signs Temperature 98.5 F 12/18/18 09:41 Pulse Rate 104 H 12/18/18 09:41 Respiratory Rate 27 H 12/18/18 09:41 Blood Pressure 184/100 H 12/18/18 09:41 Pulse Oximetry 98 12/18/18 09:41 GENERAL: Alert female and in no acute distress. HEENT: Head atraumatic,EOMI, pupils reactive, face symmetric CARDIOVASCULAR: Regular rate and rhythm without murmurs, rubs or gallops. RESPIRATORY: Breath sounds equal bilaterally, no wheezes rales or rhonchi. ABDOMEN: Soft, nontender. Normoactive bowel sounds all 4 quadrants. No guarding or rebound. EXTREMITIES: Normal range of motion, no clubbing or edema. Neurovascularly intact NEUROLOGICAL: Alert and oriented x4.Normal gait and speech. Cranial nerves II through XII grossly intact. Obvious tremors bilaterally no weakness. SKIN: Warm, dry, no laceration, no petechiae, no rashes or lesions. Course Orders Ordered: ED Orders 12/18/18 10:10 Basic Metabolic Panel Stat Complete Blood Count AUTO DIFF Stat Discontinued Medications Sodium Chloride (Normal Saline 0.9%) 1,000 mls @ 1,000 mls/hr IV BOLUS ONE Stop: 12/18/18 11:07 Last Infusion: 12/18/18 11:23 Dose: 0 mls/hr Admin: 12/18/18 10:16 Dose: 1,000 mls/hr Vital Signs - 8 hr 12/18/18 09:41 12/18/18 11:22 Temperature 98.5 F Pulse Rate 104 H 90 Respiratory Rate 27 H 18 Blood Pressure 184/100 H Blood Pressure [Left Arm] 142/84 H Pulse Oximetry 98 95 MDM - Neuro Symptoms/Deficit Lab Data Result diagrams: 12/18/18 10:10 12/18/18 10:10 Lab Results 12/18/18 12/18/18 Range/Units 10:10 10:10 WBC 8.3 (4.5-11.0) X10^3/uL RBC 5.17 (4.0-5.2) X10^6/uL Hgb 13.6 (12.0-16.0) g/dL Hct 41.5 (36-46) % MCV 80.2 (80-100) fL MCH 26.4 (26-34) PG MCHC 32.9 (30-36) % RDW 14.7 (11.6-14.8) % Plt Count 310 (150-400) X10^3/uL Neut % (Auto) 65.3 (50-75) % Lymph % (Auto) 24.3 L (25-40) % Baxter % (Auto) 7.5 (3-14) % Eos % (Auto) 2.0 (2-4) % Baso % (Auto) 0.9 (0-2) % Neut # (Auto) 5400 (1199-3778) /uL Lymph # (Auto) 2000 (1786-7137) /uL Baxter # (Auto) 600 (0-900) /uL Eos # (Auto) 200 (0-450) /uL Baso # (Auto) 100 (0-100) /uL Sodium 139 (137-145) mmol/L Potassium 4.2 (3.4-5.1) mmol/L Chloride 98 (98-107) mmol/L Carbon Dioxide 33 H (22-32) mmol/L BUN 15 (7-17) mg/dL Creatinine 0.90 (0.52-1.04) mg/dL Estimated GFR > 60.0 (>60) mL/min BUN/Creatinine Ratio 16.7 (6-22) Glucose 131 H (80-110) mg/dL Calcium 9.8 (8.4-10.2) mg/dL MDM Narrative Medical decision making narrative: the patient remains afebrile. Blood work reassuring. On symptoms have completely resolved. She overall is feeling better I think this is a reaction from amitriptyline. I have instructed patient to stop taking amitriptyline and so further instructions from her PCP she feels better ready and able to go home. Discharge Plan Departure Patient Disposition: Home Clinical Impression: Adverse drug reaction Qualifiers: Encounter type: initial encounter Qualified Code(s): T50.905A - Adverse effect of unspecified drugs, medicaments and biological substances, initial encounter Discharge Date/Time: 12/18/18 11:29 Interventions: ED Discharge Assessment Last Done: 12/18/18 11:29 Instructions: DI for Adverse Drug Reaction -- Other Activity Restrictions/Additional Instructions: *You have been diagnosed with adverse drug reaction *What to do: Stop taking amitriptyline, speech with your doctor about changing medications *Continue to take medications as directed *Follow up with your primary care provider in 2-3 days *Return to ER if you should have increasing shakes, fever or any new, worsening or concerning symptoms Prescriptions: No Action tramadol 50 mg tablet 50 mg PO Q6H PRN (Reason: acute abdominal pain) Qty: 10 RF: 0 hydrocodone-acetaminophen 5-325 mg tablet 1 tab PO Q4-6H PRN (Reason: pain) Qty: 10 RF: 0 ciprofloxacin HCl 500 mg tablet 500 mg PO BID Qty: 20 RF: 0 metronidazole 250 mg tablet 500 mg PO TID RF: 0 prednisone 50 mg tablet 50 mg PO DAILY Qty: 5 RF: 0 Referrals: Bibiana Hollingsworth ARNP [Non-Staff] -
[2018-12-18] MEDS: SODIUM CHLORIDE 0.9% 1,000 ML 1000 ML IV (10:16)
[2018-12-18 10:18] LABS: Add Manual Diff / Slide Review NO; Basophils Absolute Auto 100 /uL (0-100); Basophils Percent Auto 0.9 % (0-2); Eosinophils Absolute Auto 200 /uL (0-450); Hematocrit 41.5 % (36-46); Hemoglobin 13.6 g/dL (12.0-16.0); Lymphocytes Absolute Auto 2000 /uL (1100-4500); Lymphocytes Percent Auto 24.3 % (25-40); Mean Corpuscular HGB Conc 32.9 % (30-36); Mean Corpuscular Hemoglobin 26.4 PG (26-34); Mean Corpuscular Volume 80.2 fL (80-100); Monocytes Absolute Auto 600 /uL (0-900); Monocytes Percent Auto 7.5 % (3-14); Neutrophils Absolute Auto 5400 /uL (1500-7000); Neutrophils Percent Auto 65.3 % (50-75); Platelet Count 310 X10^3/uL (150-400); Red Blood Cell Count 5.17 X10^6/uL (4.0-5.2); Red Cell Distribution Width 14.7 % (11.6-14.8); White Blood Cell Count 8.3 X10^3/uL (4.5-11.0)
[2018-12-18 10:31] LABS: BUN Creatinine Ratio 16.7 (6-22); Blood Urea Nitrogen 15 mg/dL (7-17); Calcium 9.8 mg/dL (8.4-10.2); Carbon Dioxide 33 mmol/L (22-32); Chloride 98 mmol/L (98-107); Estimated Glomerular Filt Rate > 60.0 mL/min (>60); Glucose 131 mg/dL (80-110); HEMOLYSIS < 15 (0-50); Potassium 4.2 mmol/L (3.4-5.1); Sodium 139 mmol/L (137-145)
[2018-12-18 11:22] VITALS: BP 142/84; PULSE 90; RESP 18; O2SAT 95
== END 2018-12-18 11:29 | disposition home or self-care (01) ==
PROVIDERS: Emergency Provider Emergency Medicine
DX: G25.2 Other specified forms of tremor (principal); T50.905A Adverse effect of unspecified drugs, medicaments and biological substances, initial encounter
CPT/HCPCS: 36415; 36591; 80048; 85025; 96360; 99283

== ENCOUNTER → 2019-01-28 12:45 | Outpatient (CLI) | payer MEDICARE, OTHER, SELFPAY ==
--- NOTE | 2019-01-28 | DI.ECHO.S_ITS ---
[facility] +---------+ : : [address] : : : : [id number] : : : : Phone: [phone]+ Echocardiogram Report + + :Name: ANDRIA BEDOLLA Study Date: 01/28/2019 Height: 67 in : :[facility] Weight: 290 lb : : Gender: Female BSA: 2.4 m2 : :: 1950 Age: 68 yrs BP: 160/72 mmHg: :Reason For Study: Chest pain : : Performed By: Tessa Hairston : :Referring: NETTE MIGUEL : + + Interpretation Summary Normal sinus rhythm. Normal LV size, wall thickness, wall motion and LV systolic function. EF is 60-65%. Miild LA enlargement; otherwise normal chamber sizes. No significant valvular abnormalities. Procedure: A two-dimensional transthoracic echocardiogram with color flow and Doppler was performed. The study quality was technically adequate. There is no prior echocardiogram noted for this patient. The heart rate ranged between 85-90 bpm during the study. Left Ventricle: The left ventricle is normal in size, wall thickness, and systolic function without any focal wall motion abnormalities. The ejection fraction is estimated to be 60-65%. Diastolic parameters suggest a relaxation abnormality of the left ventricle, consistent with probable normal filling pressures. Right Ventricle: The right ventricle grossly appears normal in size with probable normal systolic function. Atria: The left atrium is mildly dilated. Right atrial size is normal. Mitral Valve: The mitral valve is normal in structure and function. There is no mitral regurgitation noted. Aortic Valve: The aortic valve is trileaflet. The aortic valve opens well. No aortic regurgitation is present. Tricuspid Valve: The tricuspid valve is normal in structure and function. No tricuspid regurgitation. Pulmonic Valve: The pulmonic valve is not well visualized. There is no pulmonic valvular regurgitation. Great Vessels: The aortic root is normal size. The ascending aorta is normal in size. The aortic arch is at the upper limits of normal in size. The IVC is of normal diameter and collapses greater than 50% with a sniff. This suggests a low right atrial pressure of 3 mm Hg. Pericardium/ Pleura There is no pericardial effusion. There is no pleural effusion. MMode/2D Measurements & Calculations LVIDd: 5.3 cm Ao root diam: 3.1 cm LVIDs: 3.0 cm Aortic Jxn: 2.7 cm FS: 43.0 % asc Aorta Diam: 3.5 cm EPSS: 0.67 cm Ao Arch Diam (Prox Trans): 3.2 cm IVSd: 0.98 cm LVPWd: 1.0 cm LV santiago. diameter/BSA (cm/m^2): 2.2 LV sys. diameter/BSA (cm/m^2): 1.3 LA dimension: 3.5 cm RA long axis: 4.4 cm LA A2 area: 22.4 cm2 RA area: 14.1 cm2 LA A4 area: 21.1 cm2 RA vol: 37.8 ml LA length (vol): 5.2 cm RA : 16.0 ml/m2 LA vol: 77.2 ml IVC diam: 1.1 cm LA vol index: 32.6 ml/m2 RVDd major: 5.3 cm RVD1 (basal): 3.2 cm RVD2 (mid): 2.7 cm Doppler Measurements & Calculations Ao V2 max: 194.1 cm/sec LVOT Max Venkat: 102.2 cm/sec Ao V2 mean: 124.9 cm/sec LV V1 max P.2 mmHg Ao max P.1 mmHg LV V1 VTI: 22.9 cm Ao mean P.4 mmHg sev ratio: 0.58 Ao V2 VTI: 39.5 cm MV E max venkat: 83.8 cm/sec PA V2 max: 101.4 cm/sec MV A max venkat: 106.7 cm/sec PA V2 mean: 66.6 cm/sec MV E/A: 0.79 PA mean P.0 mmHg Med Peak E' Venkat: 7.7 cm/sec PA Accel Time: 0.10 sec E/E' med: 10.9 Lat Peak E' Venkat: 9.4 cm/sec E/E' lat: 8.9 E/e' average: 9.9 MV dec time: 0.19 sec MV P1/2t: 56.2 msec MV P1/2t max venkat: 83.4 cm/sec MVA(P1/2t): 3.9 cm2 Electronically signed by: Gianna Brooks M.D. on Reading Physician:01/30/2019 11:53 PM
--- NOTE | 2019-01-28 14:44 | PM.TREADMILL ---
Cardiac Stress Test Report Referral & Results Date Patient Seen: 01/28/19 Time Patient Seen: 14:30 Requesting provider: Yony Chen Indication: Chest pain Rest ECG: NSR Procedure Note: After both written and verbal informed consent the patient had an IV started by the diagnostic imaging RN and then was hooked up to the treadmill monitoring system. The patient was placed on the treadmill at 1 mile an hour with no elevation and was then injected with the Leonor scan material. The Cardiolite was then immediately administered. The patient spent an additional 2-3 minutes on the treadmill before being returned to the [facility] in the supine position. The patient had a normal response to all infused materials. Impression: Successful Leonor protocol. Will await perfusion imaging. Please note: Actual ECG tracings can be found in the PACS system.
--- NOTE | 2019-01-31 15:44 | DI.NM.S_ITS ---
DATE OF SERVICE: 01/28/2019 PROCEDURE: Pharmacological perfusion study. INDICATIONS: Exertional chest discomfort, shortness of breath with underlying obesity, diabetes mellitus, hypertension. RADIOPHARMACEUTICAL: 24.3 mCi technetium-99m Myoview IV was injected at stress and 23.9 mCi technetium-99m Myoview IV was injected at rest. CARDIAC STRESS: Patient received IV Lexiscan perfusion study as per standard protocol under the supervision of an attending staff. She walked at low level as well. Baseline rhythm was sinus. Stress EKG did not reveal any obvious inducible ischemic changes. There were no significant arrhythmias. No significant symptoms were reported. Baseline blood pressure 170/86, peak blood pressure 210/80, and maximum heart rate achieved 135 which was 88% of target heart rate. There was hypertensive blood pressure response. RAW DATA: Significant breast shadow seen. GATED STUDY: Resting stress LV ejection fraction 78%. Stress LV ejection fraction 88% without any obvious wall motion abnormalities. There is no transient ischemic dilatation. TID ratio is 0.98, which is within normal limits. Resting LV end-diastolic volume is 92 mL. Lung/heart ratio is 0.29, which is within normal limits. MYOCARDIAL PERFUSION SCAN: Please note, this study does not have any prone images. Stress supine images were compared with resting supine images. It appears to be that patient has fltrd-wi-vkapnnhf-sized mild reversible perfusion defect involving the anterior wall and distal anterior septum. CONCLUSION: This is an abnormal myocardial perfusion study which showed small- [id number]-[id number] mild reversible ischemia of anterior wall and distal anterior septum. This study doesn't have any prone images. On raw data, there was breast shadow seen as well. However, resting supine images revealed normal myocardial perfusion. Hence, this defect appears to be true defect. Overall, left ventricular (LV) systolic function is preserved. No obvious wall motion abnormalities. No transient ischemic dilatation. Lung/heart ratio is 0.29, which is within normal limits. Addendum: findings were discussed with Dr. Oakley, covering Dr. Chen. Charisma Luna - VICKY/jaylon/ doc#: [id number]/job#: [id number] dd: 01/31/2019 12:54:00 dt: 01/31/2019 15:35:00 DICTATING MD/COPIES TO: Madelyn Abbott MD; Yony Chen MD COPIES MNE: FRITZ; DHRUV
== END ==
PROVIDERS: Visit Provider Internal Medicine Cardiovascular Disease
DX: R07.89 Other chest pain (principal); I25.9 Chronic ischemic heart disease, unspecified; R06.09 Other forms of dyspnea; R06.02 Shortness of breath; E11.9 Type 2 diabetes mellitus without complications; I10 Essential (primary) hypertension; E66.9 Obesity, unspecified
CPT/HCPCS: 78452; 93016; 93017; 93018; 93306; A9502; J2785

== ENCOUNTER → 2019-05-18 11:00 | Outpatient (CLI) | payer MEDICARE, OTHER, SELFPAY ==
--- NOTE | 2019-05-18 11:15 | DI.CT.S_ITS ---
PROCEDURE: CT ABDOMEN WO/W CON INDICATIONS: liver mass TECHNIQUE: 4 phase scanning was performed. Non-contrast 5 mm axial sections acquired from the diaphragm to the iliac crests. Following the administration of intravenous contrast, 5 mm thick arterial-phase, portal venous-phase, and 5-minute delayed phase images were acquired through the liver. 5 mm thick coronal and sagittal reformats were performed. For radiation dose reduction, the following was used: automated exposure control, adjustment of mA and/or kV according to patient size. COMPARISON: [facility], CT, CT ABDOMEN PELVIS W CON, 11/02/2018, 23:43. [facility], CT, CT ABDOMEN WO/W CON, 10/14/2018, 13:39. FINDINGS: Image quality: Excellent. Lung bases: Lung bases are clear. Heart size is normal. There is a small hiatal hernia. Liver: Within segment 5 of the anterior right hepatic lobe, there is a peripheral well-circumscribed thin-walled cyst redemonstrated measuring up to 3.3 x 2.8 x 2.8 cm. There is no internal enhancement following contrast administration. Elsewhere, no discrete solid mass, abnormal enhancement, or suspicious areas of washout to suggest a hepatoma. Other solid organs: Gallbladder is surgically absent. Biliary system is non dilated. Pancreas demonstrates mild fatty atrophy. No discrete pancreatic mass or pancreatic duct dilatation. Spleen is normal in size and enhancement. No adrenal nodules. Both kidneys demonstrate normal size and enhancement, without hydronephrosis or nephrolithiasis. Nodes and vessels: No retroperitoneal or mesenteric adenopathy by size criteria. Aorta and inferior vena cava are normal in size. Bowel and peritoneum: Visualized bowel loops are normal in caliber. No free fluid or air. Bones: No suspicious bony lesions. No vertebral body compression fractures. Miscellaneous: No ventral hernias. IMPRESSION: 1. Stable nonenhancing cyst in the right hepatic lobe without internal solid components. 2. No discrete solid mass or suspicious enhancement to suggest a hepatoma. Dictated by: Tarik Loving M.D. on 05/18/2019 at 16:19 Approved by: Tarik Loving M.D. on 05/18/2019 at 16:38
== END ==
PROVIDERS: Visit Provider Internal Medicine Gastroenterology
DX: K76.89 Other specified diseases of liver (principal); Z90.49 Acquired absence of other specified parts of digestive tract
CPT/HCPCS: 74170; Q9967

== ENCOUNTER 2019-11-07 12:54 | Emergency (ER) | payer MEDICARE, OTHER, SELFPAY ==
[2019-11-07 13:04] VITALS: BP 158/77; PULSE 75; RESP 18; TEMP 36.4; O2SAT 98; BMI 45.4
--- NOTE | 2019-11-07 13:19 | DI.RAD.S_ITS ---
PROCEDURE: XR CHEST 2V INDICATIONS: Left shoulder pain TECHNIQUE: 2 views of the chest were acquired. COMPARISON: [facility], CR, XR CHEST 1V, 11/02/2018, 22:54. FINDINGS: Surgical changes and devices: None. Lungs and pleura: Lungs are clear. No pleural effusions or pneumothorax. Mediastinum: Mediastinal contours are normal. Heart size is normal. Bones and chest wall: No suspicious bony abnormalities. Soft tissues appear unremarkable. IMPRESSION: No acute cardiopulmonary disease process. Dictated by: Lenore Garcia MD, PhD on 11/07/2019 at 13:34 Approved by: Lenore Garcia MD, PhD on 11/07/2019 at 13:34
[2019-11-07] MEDS: LIDOCAINE PATCH 1 EACH ADH..PATCH TOP (13:30)
[2019-11-07] MEDS: PANTOPRAZOLE 20 MG TABLET PO (13:30)
[2019-11-07] MEDS: predniSONE 20 MG TABLET 40 MG PO (13:30)
[2019-11-07 13:43] LABS: Add Manual Diff / Slide Review NO; Basophils Absolute Auto 0 /uL (0-100); Basophils Percent Auto 0.5 % (0-2); Eosinophils Absolute Auto 100 /uL (0-450); Eosinophils Percent Auto 1.5 % (2-4); Hematocrit 39.7 % (36-46); Hemoglobin 12.9 g/dL (12.0-16.0); Lymphocytes Absolute Auto 1700 /uL (1100-4500); Lymphocytes Percent Auto 17.5 % (25-40); Mean Corpuscular HGB Conc 32.5 % (30-36); Mean Corpuscular Hemoglobin 27.1 PG (26-34); Mean Corpuscular Volume 83.3 fL (80-100); Monocytes Absolute Auto 700 /uL (0-900); Monocytes Percent Auto 7.7 % (3-14); Neutrophils Absolute Auto 7000 /uL (1500-7000); Neutrophils Percent Auto 72.8 % (50-75); Platelet Count 308 X10^3/uL (150-400); Red Blood Cell Count 4.77 X10^6/uL (4.0-5.2); Red Cell Distribution Width 13.8 % (11.6-14.8); White Blood Cell Count 9.6 X10^3/uL (4.5-11.0)
--- NOTE | 2019-11-07 13:52 | ED.UPPEXIN ---
HPI - Extremity Injury (Upper) <LILLIAN Lind - Last Filed: 11/07/19 15:43> General Chief Complaint: Extremity Injury, Upper Stated Complaint: Pain left should going down arm Time Seen by Provider: 11/07/19 13:04 Source: patient Mode of arrival: Ambulatory History of Present Illness HPI narrative: This is a 69-year-old female, nonsmoker, who presents to ED with low mid/left cervical pain radiating down to left shoulder and arm with some weakness and tingling sensation to her fingertips for 2 days. Patient reports weakness to left arm is not new and was diagnosed in the past with nerve pain and was prescribed with gabapentin which she was not able to tolerate. Patient reports even at rest pain persists. Pain increases with extending left arm. Patient had taken extra-strength Tylenol at 10:00 a.m. before coming into ED but this did nothing. Patient denies trauma, fall, increased activity level on usual crocheting or playing piano. Patient denies chest pain or breathing difficulty. Patient reports mother and father both had stroke and MIs and in 70's. Patient reports history of hypertension. Related Data Home Medications Medication Instructions Recorded Confirmed metronidazole 500 mg PO TID 11/11/18 11/11/18 Previous Rx's Medication Instructions Recorded tramadol 50 mg PO Q6H PRN #10 tab 06/17/18 ciprofloxacin HCl 500 mg PO BID #20 tab 11/03/18 hydrocodone-acetaminophen 1 tab PO Q4-6H PRN #10 tab 11/03/18 prednisone 50 mg PO DAILY #5 tab 11/11/18 cyclobenzaprine 10 mg PO BEDTIME PRN #7 tab 11/07/19 lidocaine 1 patch TOP DAILY #30 each 11/07/19 pantoprazole [Protonix] 20 mg PO DAILY 14 Days #14 tab 11/07/19 prednisone 40 mg PO DAILY 4 Days #8 tab 11/07/19 Allergies Allergy/AdvReac Type Severity Reaction Status Date / Time aspirin Allergy Verified 11/07/19 13:03 ciprofloxacin AdvReac Hives Verified 11/07/19 13:03 metronidazole [From Flagyl] AdvReac Hives Verified 11/07/19 13:03 Review of Systems <LILLIAN Lind Last Filed: 11/07/19 15:43> Review of Systems Narrative: General: Denies fever, chills, fatigue, malaise, sweats. HEENT: Denies sinus pain, ear pain, sore throat, difficulty swallowing, dizziness. Respiratory: Denies dyspnea, cough, wheezing, hemoptysis, sputum. Cardiovascular: Denies chest pain, palpitations, orthopnea, edema. Gastrointestinal: Denies nausea, vomiting, abdominal pain, diarrhea, constipation, melena. : Denies dysuria, frequency, incontinence, hematuria, urinary retention. Musculoskeletal: See HPI Skin: Denies rash, skin lesions, or other. Neurologic: Denies (+) weakness, headache, (+) tingling to left finger tips, numbness, change in speech, confusion, seizures, incoordination. Psychiatric: No concerning psychosocial issues. 12-point review of systems is negative except for those stated above. Patient History <LILLIAN Lind - Last Filed: 11/07/19 15:43> Medical History Dizziness (Chronic) History of diverticulitis of colon (Acute) History of duodenal ulcer (Resolved) Hypertension (Acute) Impairment of balance (Chronic) Surgical History History of bilateral cataract extraction (Resolved) Status post appendectomy (Resolved) Status post carpal tunnel release of both wrists (Resolved) Status post cholecystectomy (Resolved) Status post hysterectomy (Resolved) Social History Smoking Status: Never smoker alcohol intake: never substance use type: does not use Smoking Status: Never smoker alcohol intake frequency: other Substance Use Type: does not use Exam <LILLIAN Lind - Last Filed: 11/07/19 15:43> Narrative Exam Narrative: General appearance: well developed, well nourished, in no acute distress. Head: normocephalic, atraumatic, no scalp lesions, non-tender. ENT: Bilateral auditory canals and tympanic membranes clear. Hearing grossly intact. Nose without bleeding, purulent discharge, septal hematoma or deviation. Turbinate without erythema or swelling. Facial sinuses nontender to palpate. Mucous membrane moist, no mucosal lesion. Throat without erythema, tonsillar hypertrophy or exudate. Uvula in midline, airway patent. Neck/Thyroid: neck supple, full range of motion but reports discomfort on left side neck with rotation and flexion, no visible masses or meningeal signs. No JVD, non-tender without lymphadenopathy. Skin: no suspicious rashes, lesions over visible areas. Warm and dry and appropriate color for ethnicity. Heart: no clubbing, no cyanosis, no edema. S1 and S2 normal. RRR w/o murmurs, clicks, or bruits. Lungs: Breathing even and unlabored. No stridor. No accessory muscles used. Able to speak in full sentences. Chest: normal shape and expansion. Abdomen: non-obese, non-distended. Neurologic: alert and oriented. Cognitive exam, [employer] and PNS grossly intact on informal exam. Psych: good eye contact, normal affect. Initial Vital Signs Initial Vital Signs: Vital Signs Temperature 97.5 F L 11/07/19 13:04 Pulse Rate 75 11/07/19 13:04 Respiratory Rate 18 11/07/19 13:04 Blood Pressure 158/77 H 11/07/19 13:04 Pulse Oximetry 98 11/07/19 13:04 Back/Spine/Pelvis Cervical Spine: cervical muscular tenderness, pain with cervical ROM, cervical spinal tenderness and No step off deformity Extrem Other: Bilateral upper extremity strength equal bilaterally. <Pola Arreola DO - Last Filed: 11/07/19 16:02> Initial Vital Signs Initial Vital Signs: Vital Signs Temperature 97.5 F L 11/07/19 13:04 Pulse Rate 75 11/07/19 13:04 Respiratory Rate 18 11/07/19 13:04 Blood Pressure 158/77 H 11/07/19 13:04 Pulse Oximetry 98 11/07/19 13:04 Scores <LILLIAN Lind - Last Filed: 11/07/19 15:43> GCS Fabiola coma scale eye opening: Spontaneous Thurman coma scale verbal response: Orientated Fabiola coma scale motor response: Obey commands Fabiola coma scale total score: 15 Course <LILLIAN Lind - Last Filed: 11/07/19 15:43> Orders Ordered: ED Orders 11/07/19 13:04 EKG-12 Lead Stat 11/07/19 13:19 XR chest 2V Stat 11/07/19 13:33 Complete Blood Count AUTO DIFF Stat Comprehensive Metabolic Panel Stat Troponin & CK Cardiac Panel Stat Discontinued Medications Lidocaine (Lidoderm) 1 each TOP NOW ONE Stop: 11/07/19 13:20 Last Admin: 11/07/19 13:30 Dose: 1 each Documented by: KOBE Pantoprazole Sodium (Protonix) 20 mg PO NOW ONE Stop: 11/07/19 13:20 Last Admin: 11/07/19 13:30 Dose: 20 mg Documented by: KOBE Prednisone (Deltasone) 40 mg PO NOW ONE Stop: 11/07/19 13:20 Last Admin: 11/07/19 13:30 Dose: 40 mg Documented by: KOBE Vital Signs Vital signs: Vital Signs - 8 hr 11/07/19 13:04 11/07/19 14:21 11/07/19 15:00 Temperature 97.5 F L Pulse Rate 75 57 L 60 Respiratory Rate 18 14 17 Blood Pressure 158/77 H Blood Pressure [Right Arm] 158/77 H 139/67 Pulse Oximetry 98 97 97 <Pola Arreola DO - Last Filed: 11/07/19 16:02> Orders Ordered: ED Orders 11/07/19 13:04 EKG-12 Lead Stat 11/07/19 13:19 XR chest 2V Stat 11/07/19 13:33 Complete Blood Count AUTO DIFF Stat Comprehensive Metabolic Panel Stat Troponin & CK Cardiac Panel Stat Discontinued Medications Lidocaine (Lidoderm) 1 each TOP NOW ONE Stop: 11/07/19 13:20 Last Admin: 11/07/19 13:30 Dose: 1 each Documented by: KOBE Pantoprazole Sodium (Protonix) 20 mg PO NOW ONE Stop: 11/07/19 13:20 Last Admin: 11/07/19 13:30 Dose: 20 mg Documented by: KOBE Prednisone (Deltasone) 40 mg PO NOW ONE Stop: 11/07/19 13:20 Last Admin: 11/07/19 13:30 Dose: 40 mg Documented by: KOBE Vital Signs Vital signs: Vital Signs - 8 hr 11/07/19 13:04 11/07/19 14:21 11/07/19 15:00 Temperature 97.5 F L Pulse Rate 75 57 L 60 Respiratory Rate 18 14 17 Blood Pressure 158/77 H Blood Pressure [Right Arm] 158/77 H 139/67 Pulse Oximetry 98 97 97 MDM - Extremity Injury (Upper) <CHINO LindP - Last Filed: 11/07/19 15:43> Differential Diagnosis Differential diagnosis: Likely other (Atypical chest pain, cervical radiculopathy, shoulder pain/strain) Medical Records Attestation: I reviewed the patient's medical records. Lab Data Attestation: I reviewed the patient's lab results. Result diagrams: 11/07/19 13:33 11/07/19 13:33 Labs: Lab Results 11/07/19 11/07/19 Range/Units 13:33 13:33 WBC 9.6 (4.5-11.0) X10^3/uL RBC 4.77 (4.0-5.2) X10^6/uL Hgb 12.9 (12.0-16.0) g/dL Hct 39.7 (36-46) % MCV 83.3 (80-100) fL MCH 27.1 (26-34) PG MCHC 32.5 (30-36) % RDW 13.8 (11.6-14.8) % Plt Count 308 (150-400) X10^3/uL Neut % (Auto) 72.8 (50-75) % Lymph % (Auto) 17.5 L (25-40) % Mayes % (Auto) 7.7 (3-14) % Eos % (Auto) 1.5 L (2-4) % Baso % (Auto) 0.5 (0-2) % Neut # (Auto) 7000 (5489-1292) /uL Lymph # (Auto) 1700 (1761-5409) /uL Mayes # (Auto) 700 (0-900) /uL Eos # (Auto) 100 (0-450) /uL Baso # (Auto) 0 (0-100) /uL Sodium 138 (137-145) mmol/L Potassium 4.4 (3.4-5.1) mmol/L Chloride 102 (98-107) mmol/L Carbon Dioxide 29 (22-32) mmol/L BUN 18 H (7-17) mg/dL Creatinine 0.80 (0.52-1.04) mg/dL Estimated GFR > 60.0 (>60) mL/min BUN/Creatinine Ratio 22.5 H (6-22) Glucose 122 H (80-110) mg/dL Calcium 9.6 (8.4-10.2) mg/dL Total Bilirubin 0.3 (0.2-1.3) mg/dL AST 26 (14-36) IU/L ALT 17 (<35) IU/L Alkaline Phosphatase 111 (38-126) U/L Total Creatine Kinase 32 (30-135) U/L CK-MB (CK-2) TNP CK-MB (CK-2) Rel Index TNP Troponin I < 0.012 (0.01-0.034) ng/mL Total Protein 8.1 (6.3-8.2) g/dL Albumin 4.3 (3.5-5.0) g/dL Globulin 3.8 (1.7-4.1) g/dL Albumin/Globulin Ratio 1.1 (1.0-2.8) Imaging Data Chest x-ray: Radiologist's Impression: [address] [address] XRay Report Signed Patient: Xin Luna#: [id number] : 3Acct:[id number] Age/Sex: 69 / FDate of Service: 11/07/19 Loc: ED Accession Number: [id number] Procedure: XR chest 2V Ordering Provider: Bharat Rodriguez PROCEDURE: XR CHEST 2V INDICATIONS: Left shoulder pain TECHNIQUE: 2 views of the chest were acquired. COMPARISON: [facility], , XR CHEST 1V, 11/02/2018, 22:54. FINDINGS: Surgical changes and devices: None. Lungs and pleura: Lungs are clear. No pleural effusions or pneumothorax. Mediastinum: Mediastinal contours are normal. Heart size is normal. Bones and chest wall: No suspicious bony abnormalities. Soft tissues appear unremarkable. IMPRESSION: No acute cardiopulmonary disease process. Dictated by: Lenore Garcia MD, PhD on 11/07/2019 at 13:34 Approved by: Lenore Garcia MD, PhD on 11/07/2019 at 13:34 ECG Data Attestation: I personally reviewed and interpreted this ECG as follows: Interpretation: SR rate [address] int 172, QRS duration 90, QT/QTc 382/387. Normal [place]. No ST elevation or depression. Previous EKG showed sinus tachycardia. MDM Narrative Medical decision making narrative: This is a 69-year-old female who presents to ED with worsening of left shoulder pain radiating down to her fingertips for last 2 days from her chronic shoulder pain the patient is concerned since weakness is new findings. Physical exam shows bilaterally intact sensation in upper extremity with equal strength. Patient had severe discomfort for when mid cervical spine was palpated which radiated down to left finger tip. Patient denies recent trauma, fall, injury to her neck. EKG was normal sinus rhythm rate at 62. Chest x-ray shows no acute findings. Cardiac enzymes were negative. Lab tests were unremarkable. Patient was treated with lidocaine patch, prednisone with Protonix since patient has history of gastric ulcer and is not able to tolerate NAIDS and reports pain mildly decreased. Patient discharged to home with same medications with Flexeril to use at night. Return precautions were discussed with the patient and patient verbalized understanding and in agreement with treatment plan. <Pola Arreola, - Last Filed: 11/07/19 16:02> Lab Data Labs: Lab Results 11/07/19 11/07/19 Range/Units 13:33 13:33 WBC 9.6 (4.5-11.0) X10^3/uL RBC 4.77 (4.0-5.2) X10^6/uL Hgb 12.9 (12.0-16.0) g/dL Hct 39.7 (36-46) % MCV 83.3 (80-100) fL MCH 27.1 (26-34) PG MCHC 32.5 (30-36) % RDW 13.8 (11.6-14.8) % Plt Count 308 (150-400) X10^3/uL Neut % (Auto) 72.8 (50-75) % Lymph % (Auto) 17.5 L (25-40) % Mayes % (Auto) 7.7 (3-14) % Eos % (Auto) 1.5 L (2-4) % Baso % (Auto) 0.5 (0-2) % Neut # (Auto) 7000 (9794-5372) /uL Lymph # (Auto) 1700 (8402-2478) /uL Mayes # (Auto) 700 (0-900) /uL Eos # (Auto) 100 (0-450) /uL Baso # (Auto) 0 (0-100) /uL Sodium 138 (137-145) mmol/L Potassium 4.4 (3.4-5.1) mmol/L Chloride 102 (98-107) mmol/L Carbon Dioxide 29 (22-32) mmol/L BUN 18 H (7-17) mg/dL Creatinine 0.80 (0.52-1.04) mg/dL Estimated GFR > 60.0 (>60) mL/min BUN/Creatinine Ratio 22.5 H (6-22) Glucose 122 H (80-110) mg/dL Calcium 9.6 (8.4-10.2) mg/dL Total Bilirubin 0.3 (0.2-1.3) mg/dL AST 26 (14-36) IU/L ALT 17 (<35) IU/L Alkaline Phosphatase 111 (38-126) U/L Total Creatine Kinase 32 (30-135) U/L CK-MB (CK-2) TNP CK-MB (CK-2) Rel Index TNP Troponin I < 0.012 (0.01-0.034) ng/mL Total Protein 8.1 (6.3-8.2) g/dL Albumin 4.3 (3.5-5.0) g/dL Globulin 3.8 (1.7-4.1) g/dL Albumin/Globulin Ratio 1.1 (1.0-2.8) Discharge Plan Departure Patient Disposition: Home Clinical Impression: Cervical radiculopathy Left shoulder pain Qualifiers: Chronicity: unspecified Qualified Code(s): M25.512 - Pain in left shoulder Discharge Date/Time: 11/07/19 15:36 Instructions: DI for Cervical Radiculopathy, DI for Shoulder Pain Activity Restrictions/Additional Instructions: You have been diagnosed with [cervical radiculopathy radiating to left shoulder and finger tips. You were medicated with lidocaine patch, prednisone, and Protonix to protect her stomach. You fell mild improvement after the medication. Your EKG was sinus rhythm and negative for cardiac enzyme test here. Other blood tests CBC and chemistry were unremarkable. There was no acute Findings in chest x-ray.]. What to do: *Take your medications as directed. Lidocaine patch on for 12 hours and off for 12 hours for pain. Flexeril is muscle relaxant you can use it at night before go to sleep. This medication can cause drowsiness so please take precaution such as not driving, drinking alcohol or operating heavy equipments. Prednisone, steroid, daily for next 4 days for pain. This medication have been transmitted to [facility] pharmacy. You can continue to take Tylenol extra-strength 2 tests up to 3-4 times as needed for pain. *Follow up with your primary care provider in 2-3 days, call for an appointment. Let them know you were seen in the ED and that we asked you to be seen in follow up. You may need further imaging test or a referral to physical therapist. *Return to ED if you have any new, worsening, or concerning symptoms, such as [chest pain, breathing difficulty, cold sweats, nausea or vomiting, unable to tolerate fluids, increasing tingling/numbness/weakness to affected arm or any acute concerns]. Prescriptions: New lidocaine 5 % adhesive patch,medicated 1 patch TOP DAILY Qty: 30 RF: 0 prednisone 20 mg tablet 40 mg PO DAILY 4 Days Qty: 8 RF: 0 pantoprazole [Protonix] 20 mg tablet,delayed release (DR/EC) 20 mg PO DAILY 14 Days Qty: 14 RF: 0 cyclobenzaprine 10 mg tablet 10 mg PO BEDTIME PRN (Reason: muscle spasm) Qty: 7 RF: 0 No Action tramadol 50 mg tablet 50 mg PO Q6H PRN (Reason: acute abdominal pain) Qty: 10 RF: 0 hydrocodone-acetaminophen 5-325 mg tablet 1 tab PO Q4-6H PRN (Reason: pain) Qty: 10 RF: 0 ciprofloxacin HCl 500 mg tablet 500 mg PO BID Qty: 20 RF: 0 metronidazole 250 mg tablet 500 mg PO TID RF: 0 prednisone 50 mg tablet 50 mg PO DAILY Qty: 5 RF: 0 Referrals: Bibiana Hollingsworth ARNP [Non-Staff] - <Pola Arreola, - Last Filed: 11/07/19 16:02> Cosign ED Attending Cosignature Attestation: Dr Arreola Co-Sign Statement: I was available for consultation during this patient's emergency department visit. This chart is signed by myself for administrative purposes only. I did not have direct contact with this patient during this visit. They were seen independently by the APC.
[2019-11-07 13:59] LABS: Alanine Aminotransferase 17 IU/L (<35); Albumin 4.3 g/dL (3.5-5.0); Albumin Globulin Ratio 1.1 (1.0-2.8); Alkaline Phosphatase 111 U/L (38-126); Aspartate Aminotransferase 26 IU/L (14-36); BUN Creatinine Ratio 22.5 (6-22); Bilirubin Total 0.3 mg/dL (0.2-1.3); Blood Urea Nitrogen 18 mg/dL (7-17); Calcium 9.6 mg/dL (8.4-10.2); Carbon Dioxide 29 mmol/L (22-32); Chloride 102 mmol/L (98-107); Creatine Kinase 32 U/L (30-135); Estimated Glomerular Filt Rate > 60.0 mL/min (>60); Globulin 3.8 g/dL (1.7-4.1); Glucose 122 mg/dL (80-110); HEMOLYSIS < 15 (0-50); Potassium 4.4 mmol/L (3.4-5.1); Sodium 138 mmol/L (137-145); Total Protein 8.1 g/dL (6.3-8.2)
[2019-11-07 14:08] LABS: Troponin I < 0.012 ng/mL (0.01-0.034)
[2019-11-07 14:21] VITALS: BP 158/77; PULSE 57; RESP 14; O2SAT 97
--- NOTE | 2019-11-07 14:24 | PC.NURSE ---
Left shoulder pain, intermittent for several days. Some ongoing issues with weakness and dropping stuff on that left arm for several months. She states history of neck issues/pain.
[2019-11-07 15:00] VITALS: BP 139/67; PULSE 60; RESP 17; O2SAT 97
== END 2019-11-07 15:36 | disposition home or self-care (01) ==
PROVIDERS: Emergency Provider Nurse Practitioner Family
DX: M54.12 Radiculopathy, cervical region (principal); M25.512 Pain in left shoulder; I10 Essential (primary) hypertension
CPT/HCPCS: 36415; 71046; 80053; 82550; 84484; 85025; 93005; 99283; 99284

== ENCOUNTER → 2020-01-10 15:42 | Outpatient (CLI) | payer MEDICARE, OTHER, SELFPAY ==
[2020-01-11 09:37] LABS: COVID19 Sendout Not Detected (Not Detect)
== END ==
PROVIDERS: Visit Provider Registered Nurse
DX: Z01.812 Encounter for preprocedural laboratory examination (principal)
CPT/HCPCS: 87635

== ENCOUNTER 2020-01-20 10:56 | Emergency (ER) | payer MEDICARE, OTHER, SELFPAY ==
[2020-01-20 11:17] VITALS: BP 191/82; PULSE 81; RESP 18; TEMP 37.3; O2SAT 97; BMI 47.0
--- NOTE | 2020-01-20 11:18 | ED.SKABFB ---
HPI - Skin/Abscess/Foreign Bdy <LILLIAN Crook - Last Filed: 01/20/20 16:14> General Chief complaint: Skin/Abscess/Foreign Body Stated complaint: SURGERY A WEEK AGO/SWELLING Time Seen by Provider: 01/20/20 11:04 History of Present Illness HPI narrative: 69yo female history of diverticulitis, reports that she had a sigmoidectomy a week ago a [facility] with Dr. Lane. Patient states she was scheduled for sigmoidectomy due to recurrent bouts of diverticulitis and narrowing of the colon with difficulty passing stool. Patient reports procedure went well, she had daily stool, she reports last bowel movement was today, reports formed stool. However, patient noticed yesterday some of her incision jessica appeared red and had a small amount of green around them. Patient called [facility] yesterday and was told to be seen. Patient opted to come here as the hospital was closer than [facility]. Patient noticed last evening she developed sharp stabbing right lower quadrant pain. She reported chills and nausea over the past few days. She also reports over the past few days she occasionally feels like the room is spinning when she changes positions. Patient denies any vomiting, blood in her stool, chest pain, shortness of breath, history of diabetes, history of heart problems, or any other concerns. Related Data Home Medications Medication Instructions Recorded Confirmed metronidazole 500 mg PO TID 11/11/18 11/11/18 Previous Rx's Medication Instructions Recorded tramadol 50 mg PO Q6H PRN #10 tab 06/17/18 ciprofloxacin HCl 500 mg PO BID #20 tab 11/03/18 hydrocodone-acetaminophen 1 tab PO Q4-6H PRN #10 tab 11/03/18 prednisone 50 mg PO DAILY #5 tab 11/11/18 cyclobenzaprine 10 mg PO BEDTIME PRN #7 tab 11/07/19 lidocaine 1 patch TOP DAILY #30 each 11/07/19 cephalexin 500 mg PO QID 7 Days #28 cap 01/20/20 Allergies Allergy/AdvReac Type Severity Reaction Status Date / Time aspirin Allergy Verified 01/20/20 11:28 ciprofloxacin AdvReac Hives Verified 01/20/20 11:28 metronidazole [From Flagyl] AdvReac Hives Verified 01/20/20 11:28 Review of Systems <LILLIAN Crook - Last Filed: 01/20/20 16:14> Review of Systems Narrative: REVIEW OF SYSTEMS: GENERAL: Reports chills, see HPI. HENT: No head trauma. EYES: No loss of vision, double vision, eye pain, or irritation. CARDIOVASCULAR: No chest pain. RESPIRATORY: No shortness of breath or cough. GASTROINTESTINAL: Complains of RLQ abdominal pain, see HPI GENITOURINARY: No flank pain or dysuria. MUSCULOSKELETAL: No pain, weakness, or trauma. INTEGUMENTARY: No rash, lesions, or pruritus. NEURO: No numbness, tingling, memory loss, confusion, or headaches. Reports ?feeling like the room spinning ?. PSYCH: No behavior or mood changes. Patient History <LILLIAN Crook - Last Filed: 01/20/20 16:14> Medical History Dizziness (Chronic) History of diverticulitis of colon (Acute) History of duodenal ulcer (Resolved) Hypertension (Acute) Impairment of balance (Chronic) Surgical History History of bilateral cataract extraction (Resolved) Status post appendectomy (Resolved) Status post carpal tunnel release of both wrists (Resolved) Status post cholecystectomy (Resolved) Status post hysterectomy (Resolved) Social History Smoking Status: Never smoker alcohol intake: never substance use type: does not use Smoking Status: Never smoker alcohol intake frequency: other Substance Use Type: does not use Exam <LILLIAN Crook - Last Filed: 01/20/20 16:14> Initial Vital Signs Initial Vital Signs: Vital Signs Temperature 99.1 F 01/20/20 11:17 Pulse Rate 81 01/20/20 11:17 Respiratory Rate 18 01/20/20 11:17 Blood Pressure 191/82 H 01/20/20 11:17 Pulse Oximetry 97 01/20/20 11:17 PHYSICAL EXAMINATION: GENERAL: Alert and cooperative. Answers questions appropriately. Vital signs noted. HENT: Normocephalic, atraumatic. Hearing intact. Oral mucosa is pink and moist. EYES: Conjunctiva pink, sclera white, no periorbital swelling. CARDIOVASCULAR: S1 and S2 sounds normal. Regular rate and rhythm, no murmurs, clicks, or bruits. No pedal edema. RESPIRATORY: Normal respiratory rate, trachea midline, airway patent. No stridor, nasal flaring or accessory muscle use. Lungs are clear in all wisdom without wheeze, rhonchi, or crackles. No cough observed. GASTROINTESTINAL: Bowel sounds normoactive. Abdomen is soft, large habitus. Multiple 2-3cm incisions noted over mid to right lower abdomen, to incision close to umbilicus with white appearing scab. One of these incisions, approximately at the 8:00mark from the umbilicus that is with 4 cm of erythema, from appearing, no fluctuance. No discharge tiny lesions. Tenderness noted to mid abdominal area including right lower quadrant. Ecchymosis noted to left abdomen, bruising is green in appearance which is consistent with the age of surgery. No organomegaly, no palpable masses. GENITALURINARY: No flank tenderness. MUSCULOSKELETAL: Normal gait and coordination. Equal tone and mass bilaterally. EXTREMITIES: CMS intact. SKIN: Warm, dry, soft, appropriate color for ethnicity. No lesions, rashes, or wounds to visualized areas. NEURO: Alert and Oriented X 3. Good coordination. No ataxia, or sensory deficits, or cognitive issues. PSYCH: Appropriate affect and mood. <Evelyn Perales MD - Last Filed: 01/20/20 17:49> Initial Vital Signs Initial Vital Signs: Vital Signs Temperature 99.1 F 01/20/20 11:17 Pulse Rate 81 01/20/20 11:17 Respiratory Rate 18 01/20/20 11:17 Blood Pressure 191/82 H 01/20/20 11:17 Pulse Oximetry 97 01/20/20 11:17 Course <LILLIAN Crook - Last Filed: 01/20/20 16:14> Course Course Narrative: Patient reported improved pain after administration of Toradol. CT results were explained, patient was encouraged to follow up with surgeon. Strict return precautions given. Orders Ordered: ED Orders 01/20/20 11:22 CT abdomen pelvis w con Stat 01/20/20 11:42 EKG-12 Lead Stat 01/20/20 11:46 XR chest 1V Stat 01/20/20 12:04 Complete Blood Count AUTO DIFF Stat Comprehensive Metabolic Panel Stat Lipase Stat Troponin & CK Cardiac Panel Stat Discontinued Medications Sodium Chloride (Normal Saline 0.9%) 1,000 mls @ 150 mls/hr IV CONT JIMMIE Last Infusion: 01/20/20 14:53 Dose: 150 mls/hr Documented by: Admin: 01/20/20 12:10 Dose: 150 mls/hr Documented by: CVANCE Ketorolac Tromethamine (Toradol) 30 mg IV NOW ONE Stop: 01/20/20 13:20 Last Admin: 01/20/20 13:26 Dose: 30 mg Documented by: CVANCE Ondansetron HCl (Zofran) 4 mg IV NOW ONE Stop: 01/20/20 12:08 Last Admin: 01/20/20 12:12 Dose: 4 mg Documented by: CVANCE Consultations Consultation #1: Patient staff with Dr. Perales discussed test, test results, and plan of care. Vital Signs Vital signs: Vital Signs - 8 hr 01/20/20 11:17 01/20/20 13:02 01/20/20 14:08 Temperature 99.1 F Pulse Rate 81 75 76 Respiratory Rate 18 22 24 Blood Pressure 191/82 H Blood Pressure [Left Arm] 136/65 142/60 H Pulse Oximetry 97 96 95 01/20/20 14:56 Temperature Pulse Rate 77 Respiratory Rate 22 Blood Pressure 154/63 H Blood Pressure [Left Arm] Pulse Oximetry 96 <Evelyn Perales MD - Last Filed: 01/20/20 17:49> Orders Ordered: ED Orders 01/20/20 11:22 CT abdomen pelvis w con Stat 01/20/20 11:42 EKG-12 Lead Stat 01/20/20 11:46 XR chest 1V Stat 01/20/20 12:04 Complete Blood Count AUTO DIFF Stat Comprehensive Metabolic Panel Stat Lipase Stat Troponin & CK Cardiac Panel Stat Discontinued Medications Sodium Chloride (Normal Saline 0.9%) 1,000 mls @ 150 mls/hr IV CONT JIMMIE Last Infusion: 01/20/20 14:53 Dose: 150 mls/hr Documented by: Admin: 01/20/20 12:10 Dose: 150 mls/hr Documented by: CVANCE Ketorolac Tromethamine (Toradol) 30 mg IV NOW ONE Stop: 01/20/20 13:20 Last Admin: 01/20/20 13:26 Dose: 30 mg Documented by: CVANCE Ondansetron HCl (Zofran) 4 mg IV NOW ONE Stop: 01/20/20 12:08 Last Admin: 01/20/20 12:12 Dose: 4 mg Documented by: CVANCE Vital Signs Vital signs: Vital Signs - 8 hr 01/20/20 11:17 01/20/20 13:02 01/20/20 14:08 Temperature 99.1 F Pulse Rate 81 75 76 Respiratory Rate 18 22 24 Blood Pressure 191/82 H Blood Pressure [Left Arm] 136/65 142/60 H Pulse Oximetry 97 96 95 01/20/20 14:56 Temperature Pulse Rate 77 Respiratory Rate 22 Blood Pressure 154/63 H Blood Pressure [Left Arm] Pulse Oximetry 96 MDM - Skin/Abscess/Foreign Bdy <LILLIAN Crook - Last Filed: 01/20/20 16:14> Medical Records Attestation: I reviewed the patient's medical records. Lab Data Attestation: I reviewed the patient's lab results. Result diagrams: 01/20/20 12:04 01/20/20 12:04 Labs: Lab Results 01/20/20 01/20/20 Range/Units 12:04 12:04 WBC 12.1 H (4.5-11.0) X10^3/uL RBC 4.24 (4.0-5.2) X10^6/uL Hgb 11.3 L (12.0-16.0) g/dL Hct 34.7 L (36-46) % MCV 81.7 (80-100) fL MCH 26.6 (26-34) PG MCHC 32.6 (30-36) % RDW 14.5 (11.6-14.8) % Plt Count 407 H (150-400) X10^3/uL Neut % (Auto) 76.7 H (50-75) % Lymph % (Auto) 12.8 L (25-40) % Luna % (Auto) 7.5 (3-14) % Eos % (Auto) 2.5 (2-4) % Baso % (Auto) 0.5 (0-2) % Neut # (Auto) 9300 H (2787-5267) /uL Lymph # (Auto) 1600 (4612-4881) /uL Luna # (Auto) 900 (0-900) /uL Eos # (Auto) 300 (0-450) /uL Baso # (Auto) 100 (0-100) /uL Sodium 138 (137-145) mmol/L Potassium 4.0 (3.4-5.1) mmol/L Chloride 101 (98-107) mmol/L Carbon Dioxide 33 H (22-32) mmol/L BUN 10 (7-17) mg/dL Creatinine 0.67 (0.52-1.04) mg/dL Estimated GFR > 60.0 (>60) mL/min BUN/Creatinine Ratio 14.9 (6-22) Glucose 123 H (80-110) mg/dL Calcium 9.6 (8.4-10.2) mg/dL Total Bilirubin 0.4 (0.2-1.3) mg/dL AST 44 H (14-36) IU/L ALT 48 H (<35) IU/L Alkaline Phosphatase 111 (38-126) U/L Total Creatine Kinase 97 (30-135) U/L CK-MB (CK-2) TNP CK-MB (CK-2) Rel Index TNP Troponin I < 0.012 (0.01-0.034) ng/mL Total Protein 7.1 (6.3-8.2) g/dL Albumin 3.7 (3.5-5.0) g/dL Globulin 3.4 (1.7-4.1) g/dL Albumin/Globulin Ratio 1.1 (1.0-2.8) Lipase 25 (23-300) U/L Urine Dip Bedside Urine Glucose Negative Bedside Urine Bilirubin - Negative Bedside Urine Ketone - Negative Urine Specific [place] 1.015 Bedside Urine Occult Blood - Negative Bedside Urine pH 7.0 Bedside Urine Protein - Negative Bedside Urine Urobilinogen - Negative Bedside Urine Nitrite - Negative Bedside Urine Leukocytes +/- [address] scan - abdomen/pelvis: Radiologist's Impression: [address] [address] [address] Scan Report Signed Patient: Xin Luna#: [id number] : 3Acct:[id number] Age/Sex: 69 / FDate of Service: 01/20/20 Loc: ED Accession Number: [id number] Procedure: CT abdomen pelvis w con Ordering Provider: Norma Prater PROCEDURE: CT ABDOMEN PELVIS W CON INDICATIONS: RLQ pain 1 weeks post sigmoid removal. TECHNIQUE: After the administration of intravenous contrast, 5 mm thick sections acquired from the diaphragm to the symphysis. 5 mm coronal and sagittal reformats were acquired. For radiation dose reduction, the following was used: automated exposure control, adjustment of mA and/or kV according to patient size. COMPARISON: [facility], CT, CT ABDOMEN PELVIS W CON, 11/02/2018, 23:43. FINDINGS: Image quality: Excellent. ABDOMEN: Lung bases: Lung bases are clear. Heart size is normal. Solid organs: Liver is normal in size. Previously noted cystic structure with peripheral enhancing wall and anterior margin of right hepatic lobe is unchanged in size and appearance. Hepatic steatosis is seen. Gallbladder is surgically absent. Biliary system is non dilated. Pancreas enhances normally. Spleen is normal in size and enhancement. No adrenal nodules. Kidneys demonstrate normal size and enhancement, without hydronephrosis. Peritoneum and bowel: Patient is status post partial colectomy with postsurgical changes seen rectosigmoid region. Mild colonic wall thickening and edema adjacent to surgical anastomosis is seen most likely represent postsurgical inflammatory changes. There is an ill-defined extraluminal hypodense collection in right anterior abdominal peritoneal space just lateral to the midline and measures up to 2.7 x 4.3 x 4.1 cm in size which could represent postsurgical seroma. Abscess collection cannot be entirely excluded. This collection appears to extend to right anterior abdominal wall. Asymmetrically prominent left rectus abdominous muscle is seen with heterogeneous intramuscular densities suggestive of intramuscular hematoma secondary to recent surgery. Small amount of fluid within anterior abdominal wall incision site is noted and measures up to 1.6 cm in width and 4.1 cm in depth. Tiny pockets of air in nondependent portion of peritoneal space is seen, most likely represent iatrogenic air from recent surgery. Nodes and vessels: No retroperitoneal or mesenteric adenopathy by size criteria. Aorta and inferior vena cava are normal in size. Miscellaneous: No ventral hernias. PELVIS: Genitourinary: Bladder wall thickness is normal. Miscellaneous: No inguinal hernias or adenopathy. Bones: No suspicious bony lesions. No vertebral body compression fractures. IMPRESSION: 1. Interval partial colectomy with postsurgical changes seen in rectosigmoid region. Surgical anastomosis appears grossly intact. Tiny pockets of air seen in nondependent portion of peritoneal space most likely represent iatrogenic air from recent surgery. 2. Small amount of fluid seen in anterior abdominal wall incision site as described above, postsurgical changes also noted in anterior abdominal wall and left rectus abdominis muscle with suggestion of intramuscular hematoma. 3. Ill-defined 2.7 x 4.3 x 4.1 cm fluid collection in right anterior abdominal peritoneal space extending to anterior abdominal wall just lateral to the midline, and may represent postsurgical seroma. Developing abscess collection cannot be entirely excluded. No other discrete fluid collection is identified. 4. No evidence of bowel obstruction. 5. Stable cystic structure in right hepatic lobe unchanged in size and appearance from prior study. Dictated by: Lloyd Tomlin M.D. on 01/20/2020 at 13:12 Approved by: Lloyd Tomlin M.D. on 01/20/2020 at 13:35 Chest x-ray: Radiologist's Impression: [address] [address] XRay Report Signed Patient: Xin Luna#: [id number] : 3Acct:[id number] Age/Sex: 69 / FDate of Service: 01/20/20 Loc: ED Accession Number: [id number] Procedure: XR chest 1V Ordering Provider: Norma Prater PROCEDURE: XR CHEST 1V INDICATIONS: dizziness TECHNIQUE: One view of the chest was acquired. COMPARISON: [facility], , XR CHEST 2V, 11/07/2019, 13:14. FINDINGS: Surgical changes and devices: None. Lungs and pleura: There is mild pulmonary vascular congestion. Ill-defined increased opacity in right infrahilar region is seen concerning for right lower lobe infiltrate. Left lung is clear. No pleural effusions or pneumothorax. Mediastinum: Mediastinal contours appear normal. Heart size is mildly enlarged. Bones and chest wall: No suspicious bony lesions. Overlying soft tissues appear unremarkable. IMPRESSION: Mild congestion and suggestion of right lower lobe small infiltrate. No pleural effusion or pneumothorax. Dictated by: Lloyd Tomlin M.D. on 01/20/2020 at 12:29 Approved by: Lloyd Tomlin M.D. on 01/20/2020 at 12:30 ECG Data Interpretation: Normal sinus rhythm, rate 74, ND interval 158, QTC 415. No ST elevation or ST depression. T-wave inversion noted to V1, this is consistent with EKG from 10/2019 and 10/2018. No ectopy. EKG also viewed by Dr. Perales. [facility] Narrative Medical decision making narrative: 69-year-old female status post 1 week sigmoidectomy presents emergency department for redness around her scars with some green discoloration abdominal pain. Small pockets of area which are consistent with recent surgery, abdominal hematoma (most likely responsible for her abdominal pain, as well as recent inflammation from prior surgery) CT also shows small fluid collection and possible seroma noted to the abdominal. No signs of bowel obstruction. Due to erythema around surgical site, patient was started on cephalexin. Less concern for sepsis due to lack of fever, tachycardia, for increased weakness. Patient is hemodynamically stable, pain was significantly reduced with ketorolac. However, very strict return precautions given for new or worsening symptoms. Patient was encouraged to follow up with her surgeon the next week for further evaluation. Patient agreed to plan of care verbalized understanding. <Evelyn Perales MD - Last Filed: 01/20/20 17:49> Lab Data Labs: Lab Results 01/20/20 01/20/20 Range/Units 12:04 12:04 WBC 12.1 H (4.5-11.0) X10^3/uL RBC 4.24 (4.0-5.2) X10^6/uL Hgb 11.3 L (12.0-16.0) g/dL Hct 34.7 L (36-46) % MCV 81.7 (80-100) fL MCH 26.6 (26-34) PG MCHC 32.6 (30-36) % RDW 14.5 (11.6-14.8) % Plt Count 407 H (150-400) X10^3/uL Neut % (Auto) 76.7 H (50-75) % Lymph % (Auto) 12.8 L (25-40) % Luna % (Auto) 7.5 (3-14) % Eos % (Auto) 2.5 (2-4) % Baso % (Auto) 0.5 (0-2) % Neut # (Auto) 9300 H (5513-4166) /uL Lymph # (Auto) 1600 (5633-3379) /uL Luna # (Auto) 900 (0-900) /uL Eos # (Auto) 300 (0-450) /uL Baso # (Auto) 100 (0-100) /uL Sodium 138 (137-145) mmol/L Potassium 4.0 (3.4-5.1) mmol/L Chloride 101 (98-107) mmol/L Carbon Dioxide 33 H (22-32) mmol/L BUN 10 (7-17) mg/dL Creatinine 0.67 (0.52-1.04) mg/dL Estimated GFR > 60.0 (>60) mL/min BUN/Creatinine Ratio 14.9 (6-22) Glucose 123 H (80-110) mg/dL Calcium 9.6 (8.4-10.2) mg/dL Total Bilirubin 0.4 (0.2-1.3) mg/dL AST 44 H (14-36) IU/L ALT 48 H (<35) IU/L Alkaline Phosphatase 111 (38-126) U/L Total Creatine Kinase 97 (30-135) U/L CK-MB (CK-2) TNP CK-MB (CK-2) Rel Index TNP Troponin I < 0.012 (0.01-0.034) ng/mL Total Protein 7.1 (6.3-8.2) g/dL Albumin 3.7 (3.5-5.0) g/dL Globulin 3.4 (1.7-4.1) g/dL Albumin/Globulin Ratio 1.1 (1.0-2.8) Lipase 25 (23-300) U/L Urine Dip Bedside Urine Glucose Negative Bedside Urine Bilirubin - Negative Bedside Urine Ketone - Negative Urine Specific [place] 1.015 Bedside Urine Occult Blood - Negative Bedside Urine pH 7.0 Bedside Urine Protein - Negative Bedside Urine Urobilinogen - Negative Bedside Urine Nitrite - Negative Bedside Urine Leukocytes +/- 15 Esterase Discharge Plan Departure Patient Disposition: Home Clinical Impression: Cellulitis Qualifiers: Site of cellulitis: trunk Site of cellulitis of trunk: abdominal wall Qualified Code(s): L03.311 - Cellulitis of abdominal wall Discharge Date/Time: 01/20/20 14:58 Instructions: DI for Cellulitis -- Adult Activity Restrictions/Additional Instructions: Thank you for entrusting me with your care today. As discussed, your CT shows some fluid undo your skin by your incision. I have given antibiotics to treat an infection. Please take this as directed. Your prescription was sent to the [facility] pharmacy. Additionally, there was a small amount of air in the abdomen which is most likely due to the recent surgery. I have given you a copy of your CT report, please bring this to your follow-up appointment. Schedule an appointment in the next week with her surgeon for re-evaluation. Return emergency department for any new or worsening symptoms such as severe pain, high fevers, vomiting, shortness of breath, chest pain, or any other concerns. Prescriptions: New cephalexin 500 mg capsule 500 mg PO QID 7 Days Qty: 28 RF: 0 No Action tramadol 50 mg tablet 50 mg PO Q6H PRN (Reason: acute abdominal pain) Qty: 10 RF: 0 hydrocodone-acetaminophen 5-325 mg tablet 1 tab PO Q4-6H PRN (Reason: pain) Qty: 10 RF: 0 ciprofloxacin HCl 500 mg tablet 500 mg PO BID Qty: 20 RF: 0 metronidazole 250 mg tablet 500 mg PO TID RF: 0 prednisone 50 mg tablet 50 mg PO DAILY Qty: 5 RF: 0 lidocaine 5 % adhesive patch,medicated 1 patch TOP DAILY Qty: 30 RF: 0 cyclobenzaprine 10 mg tablet 10 mg PO BEDTIME PRN (Reason: muscle spasm) Qty: 7 RF: 0 <Evelyn Preales MD - Last Filed: 01/20/20 17:49> Cosign [facility] Att[facility]: I was immediately available in the department for consultation throughout this patient's visit. I agree with documentation as above. Evelyn Perales MD
--- NOTE | 2020-01-20 11:22 | DI.CT.S_ITS ---
PROCEDURE: CT ABDOMEN PELVIS W CON INDICATIONS: RLQ pain 1 weeks post sigmoid removal. TECHNIQUE: After the administration of intravenous contrast, 5 mm thick sections acquired from the diaphragm to the symphysis. 5 mm coronal and sagittal reformats were acquired. For radiation dose reduction, the following was used: automated exposure control, adjustment of mA and/or kV according to patient size. COMPARISON: [facility], CT, CT ABDOMEN PELVIS W CON, 11/02/2018, 23:43. FINDINGS: Image quality: Excellent. ABDOMEN: Lung bases: Lung bases are clear. Heart size is normal. Solid organs: Liver is normal in size. Previously noted cystic structure with peripheral enhancing wall and anterior margin of right hepatic lobe is unchanged in size and appearance. Hepatic steatosis is seen. Gallbladder is surgically absent. Biliary system is non dilated. Pancreas enhances normally. Spleen is normal in size and enhancement. No adrenal nodules. Kidneys demonstrate normal size and enhancement, without hydronephrosis. Peritoneum and bowel: Patient is status post partial colectomy with postsurgical changes seen rectosigmoid region. Mild colonic wall thickening and edema adjacent to surgical anastomosis is seen most likely represent postsurgical inflammatory changes. There is an ill-defined extraluminal hypodense collection in right anterior abdominal peritoneal space just lateral to the midline and measures up to 2.7 x 4.3 x 4.1 cm in size which could represent postsurgical seroma. Abscess collection cannot be entirely excluded. This collection appears to extend to right anterior abdominal wall. Asymmetrically prominent left rectus abdominous muscle is seen with heterogeneous intramuscular densities suggestive of intramuscular hematoma secondary to recent surgery. Small amount of fluid within anterior abdominal wall incision site is noted and measures up to 1.6 cm in width and 4.1 cm in depth. Tiny pockets of air in nondependent portion of peritoneal space is seen, most likely represent iatrogenic air from recent surgery. Nodes and vessels: No retroperitoneal or mesenteric adenopathy by size criteria. Aorta and inferior vena cava are normal in size. Miscellaneous: No ventral hernias. PELVIS: Genitourinary: Bladder wall thickness is normal. Miscellaneous: No inguinal hernias or adenopathy. Bones: No suspicious bony lesions. No vertebral body compression fractures. IMPRESSION: 1. Interval partial colectomy with postsurgical changes seen in rectosigmoid region. Surgical anastomosis appears grossly intact. Tiny pockets of air seen in nondependent portion of peritoneal space most likely represent iatrogenic air from recent surgery. 2. Small amount of fluid seen in anterior abdominal wall incision site as described above, postsurgical changes also noted in anterior abdominal wall and left rectus abdominis muscle with suggestion of intramuscular hematoma. 3. Ill-defined 2.7 x 4.3 x 4.1 cm fluid collection in right anterior abdominal peritoneal space extending to anterior abdominal wall just lateral to the midline, and may represent postsurgical seroma. Developing abscess collection cannot be entirely excluded. No other discrete fluid collection is identified. 4. No evidence of bowel obstruction. 5. Stable cystic structure in right hepatic lobe unchanged in size and appearance from prior study. Dictated by: Lloyd Tomlin M.D. on 01/20/2020 at 13:12 Approved by: Lloyd Tomlin M.D. on 01/20/2020 at 13:35
--- NOTE | 2020-01-20 11:46 | DI.RAD.S_ITS ---
PROCEDURE: XR CHEST 1V INDICATIONS: dizziness TECHNIQUE: One view of the chest was acquired. COMPARISON: [facility], CR, XR CHEST 2V, 11/07/2019, 13:14. FINDINGS: Surgical changes and devices: None. Lungs and pleura: There is mild pulmonary vascular congestion. Ill-defined increased opacity in right infrahilar region is seen concerning for right lower lobe infiltrate. Left lung is clear. No pleural effusions or pneumothorax. Mediastinum: Mediastinal contours appear normal. Heart size is mildly enlarged. Bones and chest wall: No suspicious bony lesions. Overlying soft tissues appear unremarkable. IMPRESSION: Mild congestion and suggestion of right lower lobe small infiltrate. No pleural effusion or pneumothorax. Dictated by: Lloyd Tomlin M.D. on 01/20/2020 at 12:29 Approved by: Lloyd Tomlin M.D. on 01/20/2020 at 12:30
[2020-01-20 12:10] LABS: Add Manual Diff / Slide Review NO; Basophils Absolute Auto 100 /uL (0-100); Basophils Percent Auto 0.5 % (0-2); Eosinophils Absolute Auto 300 /uL (0-450); Eosinophils Percent Auto 2.5 % (2-4); Hematocrit 34.7 % (36-46); Hemoglobin 11.3 g/dL (12.0-16.0); Lymphocytes Absolute Auto 1600 /uL (1100-4500); Lymphocytes Percent Auto 12.8 % (25-40); Mean Corpuscular HGB Conc 32.6 % (30-36); Mean Corpuscular Hemoglobin 26.6 PG (26-34); Mean Corpuscular Volume 81.7 fL (80-100); Monocytes Absolute Auto 900 /uL (0-900); Monocytes Percent Auto 7.5 % (3-14); Neutrophils Absolute Auto 9300 /uL (1500-7000); Neutrophils Percent Auto 76.7 % (50-75); Platelet Count 407 X10^3/uL (150-400); Red Blood Cell Count 4.24 X10^6/uL (4.0-5.2); Red Cell Distribution Width 14.5 % (11.6-14.8); White Blood Cell Count 12.1 X10^3/uL (4.5-11.0)
[2020-01-20] MEDS: SODIUM CHLORIDE 0.9% 1,000 ML 150 ML IV (12:10)
[2020-01-20] MEDS: ONDANSETRON 4 MG/2 ML INJ IV (12:12)
[2020-01-20 12:26] LABS: Alanine Aminotransferase 48 IU/L (<35); Albumin 3.7 g/dL (3.5-5.0); Albumin Globulin Ratio 1.1 (1.0-2.8); Alkaline Phosphatase 111 U/L (38-126); Aspartate Aminotransferase 44 IU/L (14-36); BUN Creatinine Ratio 14.9 (6-22); Bilirubin Total 0.4 mg/dL (0.2-1.3); Blood Urea Nitrogen 10 mg/dL (7-17); Calcium 9.6 mg/dL (8.4-10.2); Carbon Dioxide 33 mmol/L (22-32); Chloride 101 mmol/L (98-107); Creatine Kinase 97 U/L (30-135); Estimated Glomerular Filt Rate > 60.0 mL/min (>60); Globulin 3.4 g/dL (1.7-4.1); Glucose 123 mg/dL (80-110); HEMOLYSIS < 15 (0-50); Lipase 25 U/L (23-300); Sodium 138 mmol/L (137-145); Total Protein 7.1 g/dL (6.3-8.2)
[2020-01-20 12:35] LABS: Troponin I < 0.012 ng/mL (0.01-0.034)
[2020-01-20 13:02] VITALS: BP 136/65; PULSE 75; RESP 22; O2SAT 96
[2020-01-20] MEDS: KETOROLAC 60 MG/2 ML VIAL 30 MG IV (13:26)
[2020-01-20 14:08] VITALS: BP 142/60; PULSE 76; RESP 24; O2SAT 95
[2020-01-20 14:56] VITALS: BP 154/63; PULSE 77; RESP 22; O2SAT 96
== END 2020-01-20 14:58 | disposition home or self-care (01) ==
PROVIDERS: Emergency Provider Nurse Practitioner
DX: L03.311 Cellulitis of abdominal wall (principal)
CPT/HCPCS: 71045; 74177; 80053; 81003; 82550; 83690; 84484; 85025; 93005; 96361; 96374; 96375; 99284; J1885; J2405

== ENCOUNTER 2020-05-27 21:29 | Emergency (ER) | payer MEDICARE, OTHER, SELFPAY ==
[2020-05-27 21:35] VITALS: BP 190/93; PULSE 83; RESP 20; TEMP 36.9; O2SAT 94
--- NOTE | 2020-05-27 22:16 | ED.GENADULT ---
HPI - General Adult General Chief complaint: Upper Respiratory Symptoms Stated complaint: sinus/ ear infection Time Seen by Provider: 05/27/20 21:39 Source: patient Mode of arrival: Ambulatory Limitations: no limitations History of Present Illness HPI narrative: Patient is a 69-year-old female here for evaluation of left-sided sinus pain, left-sided temporal pain and left ear pain. Patient states she has a longstanding history of sinus issues that this feels like her prior issues with her sinuses. She is taking a decongestant also Flonase. She has seen her primary doctor about issues like this in the past. Her symptoms have been going on for the past couple days. No fevers. Worse when she bends over. Worse when you touch the sinuses. No sore throat. Related Data Home Medications Medication Instructions Recorded Confirmed metronidazole 500 mg PO TID 11/11/18 11/11/18 Previous Rx's Medication Instructions Recorded tramadol 50 mg PO Q6H PRN #10 tab 06/17/18 ciprofloxacin HCl 500 mg PO BID #20 tab 11/03/18 hydrocodone-acetaminophen 1 tab PO Q4-6H PRN #10 tab 11/03/18 prednisone 50 mg PO DAILY #5 tab 11/11/18 cyclobenzaprine 10 mg PO BEDTIME PRN #7 tab 11/07/19 lidocaine 1 patch TOP DAILY #30 each 11/07/19 amoxicillin-pot clavulanate 1 tab PO BID 5 Days #10 tab 05/27/20 [Augmentin] Allergies Allergy/AdvReac Type Severity Reaction Status Date / Time aspirin Allergy Verified 01/20/20 11:28 ciprofloxacin AdvReac Hives Verified 01/20/20 11:28 metronidazole [From Flagyl] AdvReac Hives Verified 01/20/20 11:28 Review of Systems Constitutional Constitutional: Denies chills, Denies fatigue, Denies fever(s) and Reports headache(s) Eyes Eyes: Denies blind spots, Denies blurry vision, Denies diplopia, Denies eye discharge and Denies seeing flashes ENT Ears, Nose, Mouth, and Throat: Denies dental pain, Denies vertigo, Denies dizziness, Reports headache(s), Denies post nasal drip, Reports sinus pain, Reports sinus pressure, Denies sore throat and Denies throat swelling Cardiovascular Cardiovascular: Denies chest pain and Denies dyspnea Respiratory Respiratory: Denies cough and Denies dyspnea Integumentary/Breasts Skin/Breast: Denies lesions and Denies rash Neurologic Neurologic: Denies vertigo, Denies dizziness and Reports headache(s) Endocrine Endocrine: Denies fatigue Hematologic/Lymphatic Hematologic/Lymphatic: Denies easy bleeding and Denies easy bruising Allergic/Immunologic Allergic/Immunologic: Denies urticaria and Denies throat swelling Patient History Medical History Dizziness (Chronic) History of diverticulitis of colon (Acute) History of duodenal ulcer (Resolved) Hypertension (Acute) Impairment of balance (Chronic) Surgical History History of bilateral cataract extraction (Resolved) Status post appendectomy (Resolved) Status post carpal tunnel release of both wrists (Resolved) Status post cholecystectomy (Resolved) Status post hysterectomy (Resolved) Social History Smoking Status: Never smoker alcohol intake: never substance use type: does not use Smoking Status: Never smoker alcohol intake frequency: other Substance Use Type: does not use Exam Initial Vital Signs Initial Vital Signs: Vital Signs Temperature 98.5 F 05/27/20 21:35 Pulse Rate 83 05/27/20 21:35 Respiratory Rate 20 05/27/20 21:35 Blood Pressure 190/93 H 05/27/20 21:35 Pulse Oximetry 94 05/27/20 21:35 Const General: cooperative, comfortable, well developed and well groomed Limitations: mental status not altered [facility] Head: normal to inspection, normocephalic and temporal artery tenderness (Left) Ears: TM normal on the right, EAC's normal and TM abnormal bulging on the left Nose: external nose normal Face and sinus: face symmetric and tenderness on the left (Tenderness over left maxilla and frontal sinus) Eyes Pupils: PERRL EOM: EOM intact bilaterally Resp Effort & Inspection: normal respiratory effort Auscultation: clear to auscultation bilaterally Cardio Rate: regular rate Rhythm: regular rhythm GI Inspection: non-distended Palpation: soft Skin Lesions: no lesions Rashes: no rashes Neuro General: patient alert and patient awake Cognition: normal cognition Speech: speech normal Extrem General: normal to inspection and capillary refill normal Psych Appearance: grossly normal and well kempt Course Orders Ordered: ED Orders 05/27/20 22:30 Basic Metabolic Panel Stat C-Reactive Protein Quant Stat Complete Blood Count AUTO DIFF Stat Erythrocyte Sedimentation Rate Stat Discontinued Medications Hydrocodone Bitart/Acetaminophen (Vicodin 5/325 Prepack) 1 bottle MISC SEEINSTR ONE Stop: 05/27/20 23:47 Last Admin: 05/27/20 23:53 Dose: 1 bottle Documented by: MONA Amoxicillin/Clavulanate Potassium (Augmentin 875-125 Mg) 1 tab PO NOW ONE Stop: 05/27/20 23:47 Last Admin: 05/27/20 23:53 Dose: 1 tab Documented by: MONA Vital Signs Vital signs: Vital Signs - 8 hr 05/27/20 21:35 05/27/20 23:59 Temperature 98.5 F Pulse Rate 83 78 Respiratory Rate 20 15 Blood Pressure 190/93 H 162/77 H Pulse Oximetry 94 97 Medical Decision Making Lab Data Lab results reviewed: Yes I reviewed the patient's lab results. Result diagrams: 05/27/20 22:30 05/27/20 22:30 Labs: Lab Results 05/27/20 05/27/20 Range/Units 22:30 22:30 WBC 10.4 (4.5-11.0) X10^3/uL RBC 4.65 (4.0-5.2) X10^6/uL Hgb 12.4 (12.0-16.0) g/dL Hct 37.9 (36-46) % MCV 81.5 (80-100) fL MCH 26.7 (26-34) PG MCHC 32.8 (30-36) % RDW 14.1 (11.6-14.8) % Plt Count 295 (150-400) X10^3/uL Neut % (Auto) 74.2 (50-75) % Lymph % (Auto) 17.0 L (25-40) % [place] % (Auto) 7.2 (3-14) % Eos % (Auto) 1.2 L (2-4) % Baso % (Auto) 0.4 (0-2) % Neut # (Auto) 7700 H (5478-9183) /uL Lymph # (Auto) 1800 (9298-1856) /uL [place] # (Auto) 800 (0-900) /uL Eos # (Auto) 100 (0-450) /uL Baso # (Auto) 0 (0-100) /uL ESR 36 H (0-20) MM/HR Sodium 138 (137-145) mmol/L Potassium 4.3 (3.4-5.1) mmol/L Chloride 103 (98-107) mmol/L Carbon Dioxide 32 (22-32) mmol/L BUN 21 H (7-17) mg/dL Creatinine 0.72 (0.52-1.04) mg/dL Estimated GFR > 60.0 (>60) mL/min BUN/Creatinine Ratio 29.2 H (6-22) Glucose 180 H (80-110) mg/dL Calcium 9.1 (8.4-10.2) mg/dL C-Reactive Protein 2.8 H (<1.0) mg/dL MDM Narrative Medical decision making narrative: Patient did have tenderness to palpation over her left temporal artery however her ESR is less than 50. She also states that her symptoms feel very much like her prior history of sinusitis and she is tender to palpation over her left maxillary and frontal sinus and does have a bulging left tympanic membrane. Patient states that she normally gets antibiotics with this. I did discussion with her regarding antibiotics and sinusitis and the lead his research showing that antibiotics are most likely ineffective. She is insistent on receiving antibiotics. Informed her that I would prescribe her antibiotics as long as she understands that she is potentially receive medications she does not need in the wrist and benefits of this. She did expressed understanding. Will have her follow-up with her primary provider. She is going to continue with her decongestant. She expressed understanding and agreement. Discharge Plan Departure Patient Disposition: Home Clinical Impression: Sinusitis Discharge Date/Time: 05/27/20 23:59 Instructions: Sinusitis (Alternative Therapy), DI for Sinusitis, Amoxicillin Does Not Appear Effective for Acute Maxillary Sinusitis Activity Restrictions/Additional Instructions: Take all medications as directed. Contact her primary provider for follow-up. Prescriptions: New amoxicillin-pot clavulanate [Augmentin] 875-125 mg tablet 1 tab PO BID 5 Days Qty: 10 RF: 0 No Action tramadol 50 mg tablet 50 mg PO Q6H PRN (Reason: acute abdominal pain) Qty: 10 RF: 0 hydrocodone-acetaminophen 5-325 mg tablet 1 tab PO Q4-6H PRN (Reason: pain) Qty: 10 RF: 0 ciprofloxacin HCl 500 mg tablet 500 mg PO BID Qty: 20 RF: 0 metronidazole 250 mg tablet 500 mg PO TID RF: 0 prednisone 50 mg tablet 50 mg PO DAILY Qty: 5 RF: 0 lidocaine 5 % adhesive patch,medicated 1 patch TOP DAILY Qty: 30 RF: 0 cyclobenzaprine 10 mg tablet 10 mg PO BEDTIME PRN (Reason: muscle spasm) Qty: 7 RF: 0
[2020-05-27 22:36] LABS: Add Manual Diff / Slide Review NO; Basophils Absolute Auto 0 /uL (0-100); Basophils Percent Auto 0.4 % (0-2); Eosinophils Absolute Auto 100 /uL (0-450); Eosinophils Percent Auto 1.2 % (2-4); Hematocrit 37.9 % (36-46); Hemoglobin 12.4 g/dL (12.0-16.0); Lymphocytes Absolute Auto 1800 /uL (1100-4500); Mean Corpuscular HGB Conc 32.8 % (30-36); Mean Corpuscular Hemoglobin 26.7 PG (26-34); Mean Corpuscular Volume 81.5 fL (80-100); Monocytes Absolute Auto 800 /uL (0-900); Monocytes Percent Auto 7.2 % (3-14); Neutrophils Absolute Auto 7700 /uL (1500-7000); Neutrophils Percent Auto 74.2 % (50-75); Platelet Count 295 X10^3/uL (150-400); Red Blood Cell Count 4.65 X10^6/uL (4.0-5.2); Red Cell Distribution Width 14.1 % (11.6-14.8); White Blood Cell Count 10.4 X10^3/uL (4.5-11.0)
[2020-05-27 22:48] LABS: BUN Creatinine Ratio 29.2 (6-22); Blood Urea Nitrogen 21 mg/dL (7-17); Calcium 9.1 mg/dL (8.4-10.2); Carbon Dioxide 32 mmol/L (22-32); Chloride 103 mmol/L (98-107); Estimated Glomerular Filt Rate > 60.0 mL/min (>60); Glucose 180 mg/dL (80-110); HEMOLYSIS < 15 (0-50); Potassium 4.3 mmol/L (3.4-5.1); Sodium 138 mmol/L (137-145)
[2020-05-27 22:58] LABS: Erythrocyte Sedimentation Rate 36 MM/HR (0-20)
[2020-05-27 23:06] LABS: C-Reactive Protein Quant 2.8 mg/dL (<1.0)
[2020-05-27] MEDS: AMOXICILLIN/CLAV 875/125 MG 1 TAB PO (23:53)
[2020-05-27] MEDS: HYDROCODONE/ACET 5/325 PREPACK 1 BOTTLE MISC (23:53)
[2020-05-27 23:59] VITALS: BP 162/77; PULSE 78; RESP 15; O2SAT 97
== END 2020-05-27 23:59 | disposition home or self-care (01) ==
PROVIDERS: Emergency Provider Emergency Medicine
DX: J32.9 Chronic sinusitis, unspecified (principal); H92.02 Otalgia, left ear
CPT/HCPCS: 36415; 80048; 85025; 85651; 86140; 99283

== ENCOUNTER 2020-12-24 13:13 | Emergency (ER) | payer MEDICARE, OTHER, SELFPAY ==
[2020-12-24 13:22] VITALS: BP 189/95; PULSE 70; RESP 18; TEMP 36.2; O2SAT 96; BMI 45.1
[2020-12-24 16:00] VITALS: BP 180/77; PULSE 68; TEMP 36.9; O2SAT 96
[2020-12-24 17:12] VITALS: BP 178/80; PULSE 76; RESP 16; O2SAT 99
--- NOTE | 2020-12-24 17:13 | ED_ITS ---
HPI - URI/Sore Throat <LILLIAN Lind - Last Filed: 12/24/20 23:00> General Chief Complaint: Upper Respiratory Symptoms Stated Complaint: Sinus Infection Time Seen by Provider: 12/24/20 16:23 Source: patient Mode of arrival: Wheelchair Limitations: no limitations History of Present Illness HPI Narrative: This is a 70 year female, nonsmoker, has past medical history significant for tubal surgeries and chronic sinus infection. Reports severe pain started today in left temporal, frontal face, and nose area. Denies purulent discharge from the nose, or recent URI symptoms. Patient denies fever, chills, nausea or vomiting. Patient is requesting antibiotic medication for her current symptoms. Patient reports she has history of seasonal allergies and has been using Flonase once to twice a day. She had taken Tylenol for pain and had taken half a tab of her 's T3 before coming into ED pain. Related Data Home Medications Medication Instructions Recorded Confirmed metronidazole 500 mg PO TID 11/11/18 11/11/18 Previous Rx's Medication Instructions Recorded tramadol 50 mg PO Q6H PRN #10 tab 06/17/18 ciprofloxacin HCl 500 mg PO BID #20 tab 11/03/18 hydrocodone-acetaminophen 1 tab PO Q4-6H PRN #10 tab 11/03/18 prednisone 50 mg PO DAILY #5 tab 11/11/18 cyclobenzaprine 10 mg PO BEDTIME PRN #7 tab 11/07/19 lidocaine 1 patch TOP DAILY #30 each 11/07/19 Allergies Allergy/AdvReac Type Severity Reaction Status Date / Time aspirin Allergy Verified 01/20/20 11:28 ciprofloxacin AdvReac Hives Verified 01/20/20 11:28 metronidazole [From Flagyl] AdvReac Hives Verified 01/20/20 11:28 Review of Systems <LILLIAN Lind - Last Filed: 12/24/20 23:00> Review of Systems Narrative: General: Denies fever, chills, fatigue, malaise, sweats. HEENT: See HPI Respiratory: Denies dyspnea, cough, wheezing, hemoptysis, sputum. Cardiovascular: Denies chest pain, palpitations, orthopnea, edema. Gastrointestinal: Denies nausea, vomiting, abdominal pain, diarrhea, constipation, melena. : Denies dysuria, frequency, incontinence, hematuria, urinary retention. Musculoskeletal: Denies weakness, joint pain or bony pain. Skin: Denies rash, skin lesions, or other. Neurologic: Denies weakness, headache, numbness, change in speech, confusion, seizures, incoordination. Psychiatric: No concerning psychosocial issues. 12-point review of systems is negative except for those stated above. Patient History <LILLIAN Lind - Last Filed: 12/24/20 23:00> Medical History Dizziness History of diverticulitis of colon History of duodenal ulcer Hypertension Impairment of balance Surgical History History of bilateral cataract extraction Status post appendectomy Status post carpal tunnel release of both wrists Status post cholecystectomy Status post hysterectomy Social History Smoking Status: Never smoker alcohol intake: never substance use type: does not use Smoking Status: Never smoker alcohol intake frequency: other Substance Use Type: does not use Exam <LILLIAN Lind - Last Filed: 12/24/20 23:00> Narrative Exam Narrative: General appearance: well developed, well nourished, in no acute distress. Head: normocephalic, atraumatic, no scalp lesions, non-tender. ENT: Bilateral auditory canals and tympanic membranes clear. Hearing grossly intact. Nose without bleeding, purulent discharge, septal hematoma or deviation. Turbinate without erythema or swelling. Facial sinuses tender to palpate on left side. Mucous membrane moist, no mucosal lesion. Throat without erythema, tonsillar hypertrophy or exudate. Uvula in midline, airway patent. Neck/Thyroid: neck supple, full range of motion, no visible masses or meningeal signs. No JVD, non-tender without lymphadenopathy. Skin: no suspicious rashes, lesions over visible areas. Warm and dry and appropriate color for ethnicity. Heart: no clubbing, no cyanosis, no edema. S1 and S2 normal. RRR w/o murmurs, clicks, or bruits. Lungs: Breathing even and unlabored. No stridor. No accessory muscles used. Able to speak in full sentences. Chest: normal shape and expansion. Abdomen: non-obese, non-distended. Neurologic: alert and oriented. Cognitive exam, C[employer]IFIED [employer]/MEDICAL INTERPRE[employer] and PNS grossly intact on informal exam. Psych: good eye contact, normal affect. Initial Vital Signs Initial Vital Signs: Vital Signs Temperature 97.1 F L 12/24/20 13:22 Pulse Rate 70 12/24/20 13:22 Respiratory Rate 18 12/24/20 13:22 Blood Pressure 189/95 H 12/24/20 13:22 Pulse Oximetry 96 12/24/20 13:22 <Sailaja Brown DO - Last Filed: 01/01/21 02:30> Initial Vital Signs Initial Vital Signs: Vital Signs Temperature 97.1 F L 12/24/20 13:22 Pulse Rate 70 12/24/20 13:22 Respiratory Rate 18 12/24/20 13:22 Blood Pressure 189/95 H 12/24/20 13:22 Pulse Oximetry 96 12/24/20 13:22 Scores <LILLIAN Lind - Last Filed: 12/24/20 23:00> GCS [place] coma scale eye opening: Spontaneous [place] coma scale verbal response: Orientated Fabiola coma scale motor response: Obey commands Fabiola coma scale total score: 15 Course <Bharat LILLIAN Rodriguez - Last Filed: 12/24/20 23:00> Vital Signs Vital signs: Vital Signs - 8 hr 12/24/20 16:00 12/24/20 17:12 Temperature 98.5 F Pulse Rate 68 76 Respiratory Rate 16 Blood Pressure 180/77 H 178/80 H Pulse Oximetry 96 99 <Sailaja Brown DO - Last Filed: 01/01/21 02:30> Vital Signs Vital signs: Vital Signs - 8 hr 12/24/20 16:00 12/24/20 17:12 Temperature 98.5 F Pulse Rate 68 76 Respiratory Rate 16 Blood Pressure 180/77 H 178/80 H Pulse Oximetry 96 99 MDM - URI/Sore Throat <[facility] - Last Filed: 12/24/20 23:00> Differential Diagnosis Differential diagnosis: Likely upper respiratory infection, otitis media, sinusitis and other (dental caries, sinus congestion, seasonal allergy, TMJ) Medical Records Attestation: I reviewed the patient's medical records. MDM Narrative Medical decision making narrative: This is a 70 year old female who presents to ED chief complain of sinus infection which started since this morning. Patient denies recent cold symptoms, fever, chills, purulent nasal drainage or nasal congestion. Patient uses Flonase daily. Physical exam is not consistent with sinusitis and is afebrile without tachycardia. I had prolonged discussion about physical not consisting with sinusitis and antibiotic tear medication is not warrant at this time, however, patient insisted on antibiotic medication. I discussed the importance of symptomatic management with decongestant, flonase, warm compress, oral hydration, nasal rinses and humifier use at this time. She reluctantly agreed with the treatment plan after discussing risk vs. benefit of using unnecessary antibiotic medication use. Patient states she probably needs to come back in a few days to get antibiotic medication since this had happened before. Patient advised to follow-up with her primary care physician in next couple of days and provided ENT specialty referral for further evaluation for chronic sinus infection. Discharge Plan Departure Patient Disposition: Home Clinical Impression: Frontal sinus pain Instructions: DI for Sinus Headache Activity Restrictions/Additional Instructions: You have been diagnosed with [sinus pain, congestion. Physical exam no evidence of sinus infection at this time.]. What to do: *Take your medications as directed. Please continue using Flonase twice a day. Take Tylenol 650 mg up to 3 to 4 times a day as needed. Warm pack on affected side face frequently for next few days. Please use Afrin nasal spray for congestion but last than 72 hours. *Follow up with your primary care provider in 2-3 days, call for an appointment. Let them know you were seen in the ED and that we asked you to be seen in follow up. Referral to ENT for chronic sinus infection will be helpful. *Return to ED if you have any new, worsening, or concerning symptoms, such as [worsening pain, purulent discharge, face swelling, redness, warmth to touch, fever, chills, nausea or vomiting, chest pain, breathing difficulty, near syncope or any acute concerns]. Prescriptions: No Action tramadol 50 mg tablet 50 mg PO Q6H PRN (Reason: acute abdominal pain) Qty: 10 RF: 0 hydrocodone-acetaminophen 5-325 mg tablet 1 tab PO Q4-6H PRN (Reason: pain) Qty: 10 RF: 0 ciprofloxacin HCl 500 mg tablet 500 mg PO BID Qty: 20 RF: 0 metronidazole 250 mg tablet 500 mg PO TID RF: 0 prednisone 50 mg tablet 50 mg PO DAILY Qty: 5 RF: 0 lidocaine 5 % adhesive patch,medicated 1 patch TOP DAILY Qty: 30 RF: 0 cyclobenzaprine 10 mg tablet 10 mg PO BEDTIME PRN (Reason: muscle spasm) Qty: 7 RF: 0 Referrals: Florin Soni MD [Physician] - Kendrick Naqvi MD [Primary Care Provider] - <Sailaja Brown DO - Last Filed: 01/01/21 02:30> Cosign ED Attending Nikoleature Attestation: I was immediately available in the department for consultation. Documentation has been reviewed. Agree with plan.
--- NOTE | 2020-12-24 17:13 | PC.NURSE ---
and pt upset that antibiotics are not being prescribed. This nurse into room due to raised voices which resolved w/o intervention.
== END 2020-12-24 17:25 | disposition home or self-care (01) ==
PROVIDERS: Emergency Provider Nurse Practitioner Family; PCP Internal Medicine
DX: J34.89 Other specified disorders of nose and nasal sinuses (principal)
CPT/HCPCS: 99281

== ENCOUNTER → 2021-08-16 09:51 | Outpatient (CLI) | payer MEDICARE, OTHER, SELFPAY ==
--- NOTE | 2021-08-16 | DI.US.S_ITS ---
PROCEDURE: US ABDOMEN LIMITED INDICATIONS: BILATERAL GROIN PAIN TECHNIQUE: Real-time focused scanning was performed of the inguinal regions bilaterally with image documentation. COMPARISON: None. FINDINGS: No evidence of inguinal hernia bilaterally. Mildly prominent lymph nodes within the bilateral inguinal regions, largest of which measures 11 mm short axis on the right. IMPRESSION: No evidence of inguinal hernia bilaterally. Mildly prominent inguinal lymph nodes, possibly indicating underlying infection or inflammation. Dictated by: Chasity Mcdonnell M.D. on 08/16/2021 at 14:11 Approved by: Chasity Mcdonnell M.D. on 08/16/2021 at 14:12
--- NOTE | 2021-08-16 | DI.CT.S_ITS ---
PROCEDURE: CT ABDOMEN WO/W CON INDICATIONS: PANCREATIC CYST,GROIN PAIN TECHNIQUE: After the administration of intravenous contrast, 3 mm thick pancreatic-phase images acquired from the diaphragm to the iliac crests. 3 mm thick coronal and sagittal reformats were performed. For radiation dose reduction, the following was used: automated exposure control, adjustment of mA and/or kV according to patient size. COMPARISON: [facility], CT, CT ABDOMEN WO/W CON, 05/18/2019, 11:17. FINDINGS: Image quality: Excellent. Lung bases: Lung bases are clear. Heart size is normal. Pancreas: The pancreas is normal size. There is moderate fatty replacement of the proximal portion. No ductal dilatation, cyst, or suspicious solid mass. No peripancreatic inflammation or calcification. Other solid organs: The liver contains a partially exophytic 3.3 cm subcapsular cystic structure arising from segment IV B. It demonstrates water density with Hounsfield units of 10 precontrast and no enhancement postcontrast. This has not changed in greater than two years. The liver is otherwise normal. Gallbladder is surgically absent. Biliary system is non dilated. Spleen is normal in size and enhancement. There are three small round nodules in the splenic hilum compatible with splenules. No adrenal nodules. Kidneys are normal in size and enhancement, without hydronephrosis. Peritoneum and bowel: Occasional diverticula are present in the transverse colon. No acute inflammatory change. Stomach and visible small bowel loops are normal. No free fluid or air. Nodes and vessels: No retroperitoneal or mesenteric adenopathy by size criteria. Aorta and inferior vena cava are normal in size. Bones: No suspicious bony lesions. Multilevel degenerative endplate spurs throughout the thoracolumbar spine. No vertebral body compression fractures. Miscellaneous: No ventral hernias. IMPRESSION: 1. No evidence of pancreatic cyst or solid mass. 2. Stable, chronic 3.3 cm partially exophytic hepatic cyst. 3. Occasional colonic diverticulosis. Dictated by: Ayaka Prieto M.D. on 08/16/2021 at 11:43 Approved by: Ayaka Prieto M.D. on 08/16/2021 at 12:35
[2021-08-16 10:38] LABS: Alanine Aminotransferase 17 IU/L (<35); Albumin 4.3 g/dL (3.5-5.0); Albumin Globulin Ratio 1.3 (1.0-2.8); Alkaline Phosphatase 87 U/L (38-126); Aspartate Aminotransferase 22 IU/L (14-36); BUN Creatinine Ratio 20.5 (6-22); Bilirubin Total 0.4 mg/dL (0.2-1.3); Blood Urea Nitrogen 17 mg/dL (7-17); Calcium 9.6 mg/dL (8.4-10.2); Carbon Dioxide 34 mmol/L (22-32); Chloride 103 mmol/L (98-107); Estimated Glomerular Filt Rate > 60.0 mL/min (>60); Globulin 3.4 g/dL (1.7-4.1); Glucose 122 mg/dL (80-110); HEMOLYSIS < 15 (0-50); Sodium 139 mmol/L (137-145); Total Protein 7.7 g/dL (6.3-8.2)
== END ==
PROVIDERS: PCP Internal Medicine; Referring Provider Internal Medicine Gastroenterology; Visit Provider Internal Medicine Gastroenterology
DX: K86.2 Cyst of pancreas (principal); K76.89 Other specified diseases of liver; K57.30 Diverticulosis of large intestine without perforation or abscess without bleeding; K76.0 Fatty (change of) liver, not elsewhere classified; R59.0 Localized enlarged lymph nodes; R16.0 Hepatomegaly, not elsewhere classified; R10.32 Left lower quadrant pain; R10.2 Pelvic and perineal pain
CPT/HCPCS: 36415; 74170; 76705; 80053

== ENCOUNTER 2021-09-02 10:27 | Emergency (ER) | payer MEDICARE, OTHER, SELFPAY ==
[2021-09-02 11:08] VITALS: BP 146/69; PULSE 63; RESP 16; TEMP 36.2; O2SAT 97
--- NOTE | 2021-09-02 11:17 | DI.RAD.S_ITS ---
PROCEDURE: XR KNEE RT 3V INDICATIONS: pain after walking up stairs, twist TECHNIQUE: 3 views of the knee were acquired. COMPARISON: [facility], CR, XR KNEE 4+ VIEWS BILATERAL, 09/21/2018, 12:08. FINDINGS: Bones: No fractures or dislocations. No suspicious bony lesions. Tricompartmental knee joint degeneration, most pronounced at the patellofemoral joint. Soft tissues: No joint effusion. No suspicious soft tissue calcifications. Suspect tendinitis of the quadriceps tendon. IMPRESSION: 1. No acute osseous abnormalities. 2. Degenerative joint disease, most pronounced at the patellofemoral joint. 3. Suspect quadriceps tendinitis. Dictated by: Alex Franklin M.D. on 09/02/2021 at 11:49 Approved by: Alex Franklin M.D. on 09/02/2021 at 11:53
--- NOTE | 2021-09-05 11:06 | ED.LOWEXIN ---
HPI - Extremity Injury (Lower) <Lorene Giron PA-C - Last Filed: 09/05/21 11:18> General Chief Complaint: Extremity Injury, Lower Stated Complaint: Right knee injury Time Seen by Provider: 09/02/21 12:47 Source: patient Mode of arrival: Wheelchair History of Present Illness HPI Narrative: 71-year-old female with no reported past medical history presents to the ED with 2 days of right-sided knee pain. Patient states that her foot stepped on the last stair prior to the landing, causing her to land awkwardly on her right knee, followed by pain. Patient states she is able to ambulate and bear weight on the right leg, however it is painful. Patient states that the pain is more on the popliteal aspect of the right knee, but also somewhat painful on the anterior side. patient denies numbness, tingling, weakness. Patient denies feeling lightheaded or unwell leading up to the fall, that it was a mechanical misstep. Related Data Home Medications Medication Instructions Recorded Confirmed metronidazole 250 mg tablet 500 mg PO TID 11/11/18 11/11/18 Previous Rx's Medication Instructions Recorded tramadol 50 mg tablet 50 mg PO Q6H PRN #10 tab 06/17/18 ciprofloxacin HCl 500 mg tablet 500 mg PO BID #20 tab 11/03/18 hydrocodone 5 mg-acetaminophen 325 1 tab PO Q4-6H PRN #10 tab 11/03/18 mg tablet prednisone 50 mg tablet 50 mg PO DAILY #5 tab 11/11/18 cyclobenzaprine 10 mg tablet 10 mg PO BEDTIME PRN #7 tab 11/07/19 lidocaine 5 % topical patch 1 patch TOP DAILY #30 each 11/07/19 Allergies Allergy/AdvReac Type Severity Reaction Status Date / Time aspirin Allergy Verified 09/02/21 11:13 ciprofloxacin Allergy Hives Verified 09/02/21 11:13 metronidazole [From Flagyl] Allergy Hives Verified 09/02/21 11:13 Review of Systems <Lorene Giron PA-C - Last Filed: 09/05/21 11:18> Review of Systems ROS Unobtainable: All systems reviewed & are unremarkable except as noted in HPI and below Constitutional Constitutional: Denies chills, Denies fatigue, Denies fever(s), Denies frequent falls, Denies lethargy and Denies weakness Eyes Eyes: Denies change in vision, Denies eye discharge, Denies irritation and Denies loss of vision ENT Ears, Nose, Mouth, and Throat: Denies change in voice, Denies dizziness, Denies neck pain, Denies sore throat and Denies throat swelling Cardiovascular Cardiovascular: Denies chest pain, Denies irregular heart rhythm, Denies lightheadedness, Denies palpitations, Denies dyspnea, Denies dyspnea on exertion and Denies orthopnea Respiratory Respiratory: Denies cough, Denies dyspnea, Denies dyspnea on exertion and Denies wheezing Gastrointestinal Gastrointestinal: Denies abdominal pain, Denies change in bowel habits, Denies diarrhea, Denies nausea and Denies vomiting Genitourinary Genitourinary: Denies hematuria, Denies flank pain, Denies urinary incontinence and Denies urinary urgency Musculoskeletal Musculoskeletal: Denies back pain, Denies muscle weakness, Denies neck pain, Denies numbness and Denies tingling Comments: Right knee pain Integumentary/Breasts Skin/Breast: Denies pruritus, Denies erythema, Denies rash and Denies wounds Neurologic Neurologic: Denies behavioral changes, Denies confusion, Denies dizziness, Denies frequent falls, Denies loss of vision, Denies numbness, Denies tingling and Denies weakness Psychiatric Psychiatric: Denies anxiety, Denies behavioral changes, Denies confusion, Denies depression, Denies homicidal ideation and Denies suicidal ideation Endocrine Endocrine: Denies fatigue, Denies flushing and Denies palpitations Hematologic/Lymphatic Hematologic/Lymphatic: Denies easy bruising Allergic/Immunologic Allergic/Immunologic: Denies urticaria, Denies throat swelling and Denies wheezing Patient History <Lorene Giron PA-C - Last Filed: 09/05/21 11:18> Medical History (Updated 09/02/21 @ 13:33 by Lorene Giron PA-C) Dizziness History of diverticulitis of colon History of duodenal ulcer Hypertension Impairment of balance Surgical History History of bilateral cataract extraction Status post appendectomy Status post carpal tunnel release of both wrists Status post cholecystectomy Status post hysterectomy Social History Smoking Status: Never smoker alcohol intake: never substance use type: does not use Smoking Status: Never smoker alcohol intake frequency: other Substance Use Type: does not use Exam <Lorene Giron PA-C - Last Filed: 09/05/21 11:18> Initial Vital Signs Initial Vital Signs: Vital Signs Temperature 97.1 F L 09/02/21 11:08 Pulse Rate 63 09/02/21 11:08 Respiratory Rate 16 09/02/21 11:08 Blood Pressure 146/69 H 09/02/21 11:08 Pulse Oximetry 97 09/02/21 11:08 Const General: cooperative, healthy appearing and comfortable HENMT Head: normal to inspection Neck Neck: normal visual inspection Resp Effort & Inspection: normal respiratory effort Auscultation: clear to auscultation bilaterally Cardio Rate: regular rate Rhythm: regular rhythm Skin General: no rashes or lesions noted Neuro General: patient alert, patient awake and patient oriented x3 Extrem General: normal to inspection Other: tenderness to palpation in the R suprapatellar and popliteal regions. no swelling visualized, no erythema. Skin is intact. Neurovascularly intact. Full range of motion. Gait normal. Psych Appearance: grossly normal <Sailaja Brown DO - Last Filed: 09/11/21 05:01> Initial Vital Signs Initial Vital Signs: Vital Signs Temperature 97.1 F L 09/02/21 11:08 Pulse Rate 63 09/02/21 11:08 Respiratory Rate 16 09/02/21 11:08 Blood Pressure 146/69 H 09/02/21 11:08 Pulse Oximetry 97 09/02/21 11:08 MDM - Extremity Injury (Lower) <NAFISA Hart Last Filed: 09/05/21 11:18> Medical Records Attestation: I reviewed the patient's medical records. Imaging Data Extremity x-ray #1: Radiologist's Impression: PROCEDURE:? XR KNEE RT 3V ? INDICATIONS:? pain after walking up stairs, twist ? TECHNIQUE:? 3 views of the knee were acquired.? ? COMPARISON:? [facility], CR, XR KNEE 4+ VIEWS BILATERAL, 09/21/2018, 12:08. ? FINDINGS:? ? Bones:? No fractures or dislocations.? No suspicious bony lesions.? Tricompartmental knee joint degeneration, most pronounced at the patellofemoral joint. ? Soft tissues:? No joint effusion.? No suspicious soft tissue calcifications.? Suspect tendinitis of the quadriceps tendon. ? ? IMPRESSION:? ? 1. No acute osseous abnormalities.? ? 2. Degenerative joint disease, most pronounced at the patellofemoral joint. 3. Suspect quadriceps tendinitis.? ? ? Dictated by: Alex Franklin M.D. on 09/02/2021 at 11:49 ? ? Approved by: Alex Franklin M.D. on 09/02/2021 at 11:53 ? MDM Narrative Medical decision making narrative: 71-year-old female with no reported past medical history presents to the ED with 2 days of right-sided knee pain. Concern for fracture/ dislocation versus musculoskeletal sprain / strain. Will obtain x-rays. X-ray of the knee shows no evidence of fracture/ dislocation, but possible quadriceps tendinitis. Will discharge patient with ED return precautions, PCP follow-up, instructions for rice. patient verbalized understanding. Discharge Plan Departure Patient Disposition: Home Clinical Impression: Knee sprain Instructions: DI for Knee Pain Activity Restrictions/Additional Instructions: You were evaluated in the ED today for right-sided knee pain. Your x-ray is negative for fracture/dislocation, shows possible quadriceps tendinitis. You may rest, ice, compress, elevate your right leg. You may continue to take Tylenol for the pain. Please follow-up with your primary care provider if your symptoms do not improve. Return to the ED if your symptoms worsen, you experience numbness, tingling, weakness. Prescriptions: No Action tramadol 50 mg tablet 50 mg PO Q6H PRN (Reason: acute abdominal pain) Qty: 10 0RF Rx Instructions: take with tylenol hydrocodone-acetaminophen 5-325 mg tablet 1 tab PO Q4-6H PRN (Reason: pain) Qty: 10 0RF ciprofloxacin HCl 500 mg tablet 500 mg PO BID Qty: 20 0RF metronidazole 250 mg tablet 500 mg PO TID 0RF prednisone 50 mg tablet 50 mg PO DAILY Qty: 5 0RF lidocaine 5 % adhesive patch,medicated 1 patch TOP DAILY Qty: 30 0RF Rx Instructions: leave on most painful area for up to 12 hrs cyclobenzaprine 10 mg tablet 10 mg PO BEDTIME PRN (Reason: muscle spasm) Qty: 7 0RF Referrals: Kendrick Naqvi MD [Primary Care Provider] - <Sailaja Brown DO - Last Filed: 09/11/21 05:01> Cosign ED Attending Cosignature Attestation: I was immediately available in the department for consultation. Documentation has been reviewed.
== END 2021-09-02 14:10 | disposition home or self-care (01) ==
PROVIDERS: Emergency Provider Student in an Organized Health Care Education/Training Program; PCP Internal Medicine
DX: S83.91XA Sprain of unspecified site of right knee, initial encounter (principal); W01.198A Fall on same level from slipping, tripping and stumbling with subsequent striking against other object, initial encounter
CPT/HCPCS: 73562; 99283

== ENCOUNTER → 2021-12-04 13:37 | Outpatient (CLI) | payer MEDICARE, OTHER, SELFPAY ==
--- NOTE | 2021-12-04 | DI.MRI.S_ITS ---
PROCEDURE: MR KNEE RT WO CON INDICATIONS: Other instability, right knee TECHNIQUE: Noncontrast sagittal PD fast spin echo and T2 fast spin echo with fat saturation, sagittal 3-D FLASH with fat saturation; coronal T1 spin echo and PD fast spin echo with fat saturation, and axial PD fast spin echo with fat saturation through the knee. COMPARISON: [facility], CR, XR KNEE RT 3V, 09/02/2021, 11:19. FINDINGS: Image quality: Excellent. Menisci: Non surfacing signal in the medial and lateral meniscal bodies, compatible with degeneration. No definitive meniscal tear. Cruciate ligaments: The anterior and posterior cruciate ligaments appear intact. Medial structures: The medial collateral ligament appears intact. Visualized portions of the pes anserinus tendons appear normal. No abnormal bursal fluid. Lateral structures: The lateral collateral ligament complex appears intact. The popliteus tendon appears normal. Iliotibial band appears normal. Anterior structures: The quadriceps and patellar tendons appear intact. Intermediate signal within the patellar tendon, which may reflect tendinopathy. Patellar alignment is normal. No femoral trochlear dysplasia or ventral trochlear prominence. No edema in the infrapatellar fat pad. Bones and cartilage: No evidence of fracture. Subchondral edema in the patella apex. Signal heterogeneity and thinning of the medial and lateral compartment hyaline cartilage. Deficiency of the hyaline cartilage overlying the patellar apex. Joint space: Small knee joint fluid. Trace fluid in the popliteal fossa. Lateral varicosities are seen. IMPRESSION: 1. No evidence of internal derangement. 2. Absence of the hyaline cartilage overlying the patella with subchondral edema. 3. Small joint effusion. 4. Lateral varicosities. 5. Patellar tendon tendinopathy. Dictated by: Barrie Vega M.D. on 12/04/2021 at 15:41 Approved by: Barrie Vega M.D. on 12/04/2021 at 15:49
== END ==
PROVIDERS: PCP Internal Medicine; Referring Provider Internal Medicine; Visit Provider Internal Medicine
DX: M25.361 Other instability, right knee (principal); M25.461 Effusion, right knee
CPT/HCPCS: 73721

== ENCOUNTER 2021-12-15 01:18 | Observation (INO) | payer MEDICARE, OTHER, SELFPAY ==
[2021-12-15] VITALS (58 sets, daily range): BP systolic 106–192; BP diastolic 57–92; PULSE 51–85; RESP 12–24; TEMP 36.4–36.6; O2SAT 92–98; BMI 37.9
--- NOTE | 2021-12-15 01:26 | DI.RAD.S_ITS ---
PROCEDURE: XR CHEST 1V INDICATIONS: chest pain TECHNIQUE: One view of the chest was acquired. COMPARISON: [facility], CR, XR CHEST 1V, 11/02/2018, 22:54. (Additional prior chest radiographs are not available for review from the archive at the time of this dictation.) FINDINGS: Surgical changes and devices: None. Lungs and pleura: Lungs are clear. No pleural effusions or pneumothorax. Mediastinum: Mediastinal contours appear normal. Heart size is normal. Bones and chest wall: No suspicious bony lesions. Mild dextroconvex scoliotic curvature is seen. Age-appropriate bony degenerative changes are seen. Overlying soft tissues appear unremarkable. IMPRESSION: Unremarkable portable chest study for age. Dictated by: Stephen Booth M.D. on 12/15/2021 at 0:56 Approved by: Stephen Booth M.D. on 12/15/2021 at 0:58
[2021-12-15 01:48] LABS: Add Manual Diff / Slide Review NO; Basophils Absolute Auto 100 /uL (0-100); Basophils Percent Auto 0.8 % (0-2); Eosinophils Absolute Auto 200 /uL (0-450); Hematocrit 39.7 % (36-46); Hemoglobin 13.1 g/dL (12.0-16.0); Lymphocytes Absolute Auto 2500 /uL (1100-4500); Lymphocytes Percent Auto 27.1 % (25-40); Mean Corpuscular Hemoglobin 28.6 PG (26-34); Mean Corpuscular Volume 86.7 fL (80-100); Monocytes Absolute Auto 800 /uL (0-900); Monocytes Percent Auto 8.8 % (3-14); Neutrophils Absolute Auto 5600 /uL (1500-7000); Neutrophils Percent Auto 61.3 % (50-75); Platelet Count 249 X10^3/uL (150-400); Red Blood Cell Count 4.58 X10^6/uL (4.0-5.2); Red Cell Distribution Width 13.4 % (11.6-14.8); White Blood Cell Count 9.2 X10^3/uL (4.5-11.0)
[2021-12-15 01:52] LABS: PTT Partial Thromboplastin Tim 39 SECONDS (26.4-36.2)
[2021-12-15 01:53] LABS: Alanine Aminotransferase 14 IU/L (<35); Albumin 4.3 g/dL (3.5-5.0); Albumin Globulin Ratio 1.2 (1.0-2.8); Alkaline Phosphatase 107 U/L (38-126); Aspartate Aminotransferase 20 IU/L (14-36); BUN Creatinine Ratio 18.8 (6-22); Bilirubin Total 0.4 mg/dL (0.2-1.3); Blood Urea Nitrogen 15 mg/dL (7-17); Calcium 9.3 mg/dL (8.4-10.2); Carbon Dioxide 29 mmol/L (22-32); Chloride 100 mmol/L (98-107); Creatine Kinase 27 U/L (30-135); D Dimer < 200 ng/mL (<230); Estimated Glomerular Filt Rate > 60 mL/min (>60); Globulin 3.6 g/dL (1.7-4.1); Glucose 111 mg/dL (80-110); HEMOLYSIS < 15 (0-50); Lipase 73 U/L (23-300); Sodium 139 mmol/L (137-145); Total Protein 7.9 g/dL (6.3-8.2)
[2021-12-15] MEDS: SODIUM CHLORIDE 0.9% 1,000 ML 150 ML IV (02:00)
[2021-12-15 02:05] LABS: NT-proBNP (BNP-Adult 18+) 52 pg/mL (<125); Troponin I < 0.012 ng/mL (0.01-0.034)
[2021-12-15 02:27] LABS: COVID19 -Nasal RAPID Negative (Negative)
--- NOTE | 2021-12-15 03:14 | ED_ITS ---
HPI - Chest Pain General Chief Complaint: Chest Pain Stated Complaint: chest pain 45 min Time Seen by Provider: 12/15/21 01:21 Source: patient Mode of arrival: Wheelchair Limitations: no limitations History of Present Illness HPI narrative: 71-year-old female nonsmoker without significant medical history presents with her in the chief complaint of anterior chest pressure that started about 45 minutes prior to her arrival. She was in her normal state of health over the course of the day and when sitting down to do her evening priors she developed a sudden-onset left chest pressure that gradually intensified and eventually radiated to her left shoulder and neck. She had associated dizziness and per haps some brief nausea but not much in the other way of cardiac equivalent. She states that she has had no exertional component and was active over the past few days without any similar symptoms. On her arrival she complains of 7/10 pressure. She denies recent travel, history of cancer or blood clot Related Data Home Medications Medication Instructions Recorded Confirmed metronidazole 250 mg tablet 500 mg PO TID 11/11/18 11/11/18 Previous Rx's Medication Instructions Recorded tramadol 50 mg tablet 50 mg PO Q6H PRN #10 tab 06/17/18 ciprofloxacin HCl 500 mg tablet 500 mg PO BID #20 tab 11/03/18 hydrocodone 5 mg-acetaminophen 325 1 tab PO Q4-6H PRN #10 tab 11/03/18 mg tablet prednisone 50 mg tablet 50 mg PO DAILY #5 tab 11/11/18 cyclobenzaprine 10 mg tablet 10 mg PO BEDTIME PRN #7 tab 11/07/19 lidocaine 5 % topical patch 1 patch TOP DAILY #30 each 11/07/19 Allergies Allergy/AdvReac Type Severity Reaction Status Date / Time aspirin Allergy Verified 09/02/21 11:13 ciprofloxacin Allergy Hives Verified 09/02/21 11:13 metronidazole [From Flagyl] Allergy Hives Verified 09/02/21 11:13 Review of Systems Review of Systems Narrative: GENERAL: Denies chills, fatigue, malaise, fever, sweats. HEENT: Denies sinus pain, ear pain, sore throat, difficulty swallowing, dizziness. RESPIRATORY: see HPI CARDIOVASCULAR: Denies chest pain, palpitations, orthopnea, edema, GASTROINTESTINAL: Denies nausea, vomiting, abdominal pain, diarrhea, const ipation, melena. : Denies dysuria, frequency, incontinence, hematuria, urinary retention. MUSCULOSKELETAL: denies weakness, joint pain, or bony pain SKIN: Denies rash, skin lesions, or other NEUROLOGIC: Denies weakness, headache, numbness, change in speech, confusion, seizures, incoordination. PSYCHIATRIC: No concerning psychosocial issues. 12 point review of systems is negative except for those stated above Patient History Medical History (Updated 12/15/21 @ 04:54 by Gerry Barnes DO) Dizziness History of diverticulitis of colon History of duodenal ulcer Hypertension Impairment of balance Surgical History History of bilateral cataract extraction Status post appendectomy Status post carpal tunnel release of both wrists Status post cholecystectomy Status post hysterectomy Social History Smoking Status: Never smoker alcohol intake: never substance use type: does not use Smoking Status: Never smoker alcohol intake frequency: other Substance Use Type: does not use Exam Initial Vital Signs Initial Vital Signs: Vital Signs Temperature 97.5 F L 12/15/21 01:20 Pulse Rate 75 12/15/21 01:20 Respiratory Rate 18 12/15/21 01:20 Blood Pressure 192/80 H 12/15/21 01:20 Pulse Oximetry 96 12/15/21 01:20 Scores HEART Score Heart Score history: Moderately Suspicious Heart Score EKG: Normal Heart Score Age: > or = 65 years old Heart Score risk factors: 1-2 risk factors Heart Score troponin: < or = to normal limit Heart Score Total: 4 Course Orders Ordered: ED Orders 12/15/21 01:24 EKG-12 Lead Stat 12/15/21 01:26 XR chest 1V Stat 12/15/21 01:30 Complete Blood Count AUTO DIFF Stat Comprehensive Metabolic Panel Stat D Dimer Stat Lipase Stat NT-proBNP (BNP-Adult 18+) Stat Partial Thromboplastin Time Stat Prothrombin Time INR Stat Troponin & CK Cardiac Panel Stat 12/15/21 01:40 COVID19 -Nasal RAPID/Pre-Proc Stat 12/15/21 01:57 EKG-12 Lead Routine 12/15/21 03:46 Troponin & CK Cardiac Panel Stat Sodium Chloride (Normal Saline 0.9%) 1,000 mls @ 150 mls/hr IV CONT JIMMIE Last Admin: 12/15/21 02:00 Dose: 150 mls/hr Documented by: KAT Nitroglycerin (Nitroglycerin 0.4 Mg Sl Tab) 0.4 mg SL [id number] PRN PRN Reason: Chest Pain Last Admin: 12/15/21 03:52 Dose: 0.4 mg Documented by: MELI Vital Signs Vital signs: Vital Signs - 8 hr 12/15/21 01:20 12/15/21 01:26 12/15/21 01:30 Temperature 97.5 F L Pulse Rate 75 74 70 Respiratory Rate 18 16 Blood Pressure 192/80 H 149/73 H Pulse Oximetry 96 97 97 12/15/21 01:39 12/15/21 02:00 12/15/21 02:01 Temperature Pulse Rate 66 65 64 Respiratory Rate 19 22 15 Blood Pressure 141/67 H 150/69 H Pulse Oximetry 96 97 95 12/15/21 02:30 12/15/21 02:31 12/15/21 03:00 Temperature Pulse Rate 53 L 56 L 63 Respiratory Rate 13 13 14 Blood Pressure 130/61 139/65 Pulse Oximetry 93 96 95 12/15/21 03:30 12/15/21 04:00 Temperature Pulse Rate 67 73 Respiratory Rate 22 13 Blood Pressure 158/72 H 150/72 H Pulse Oximetry 96 96 MDM - Chest Pain Lab Data Result diagrams: 12/15/21 01:30 12/15/21 01:30 Labs: Lab Results 12/15/21 12/15/21 12/15/21 Range/Units 01:30 01:30 01:30 WBC 9.2 (4.5-11.0) X10^3/uL RBC 4.58 (4.0-5.2) X10^6/uL Hgb 13.1 (12.0-16.0) g/dL Hct 39.7 (36-46) % MCV 86.7 (80-100) fL MCH 28.6 (26-34) PG MCHC 33.0 (30-36) % RDW 13.4 (11.6-14.8) % Plt Count 249 (150-400) X10^3/uL Neut % (Auto) 61.3 (50-75) % Lymph % (Auto) 27.1 (25-40) % Morrow % (Auto) 8.8 (3-14) % Eos % (Auto) 2.0 (2-4) % Baso % (Auto) 0.8 (0-2) % Neut # (Auto) 5600 (8915-9402) /uL Lymph # (Auto) 2500 (2678-2597) /uL Morrow # (Auto) 800 (0-900) /uL Eos # (Auto) 200 (0-450) /uL Baso # (Auto) 100 (0-100) /uL PT 11.0 (10.1-12.7) SECONDS INR 1.0 (0.9-1.3) APTT 39 H (26.4-36.2) SECONDS D-Dimer < 200 (<230) ng/mL Sodium 139 (137-145) mmol/L Potassium 4.0 (3.4-5.1) mmol/L Chloride 100 (98-107) mmol/L Carbon Dioxide 29 (22-32) mmol/L BUN 15 (7-17) mg/dL Creatinine 0.80 (0.52-1.04) mg/dL Estimated GFR > 60 (>60) mL/min BUN/Creatinine Ratio 18.8 (6-22) Glucose 111 H (80-110) mg/dL Calcium 9.3 (8.4-10.2) mg/dL Total Bilirubin 0.4 (0.2-1.3) mg/dL AST 20 (14-36) IU/L ALT 14 (<35) IU/L Alkaline Phosphatase 107 (38-126) U/L Total Creatine Kinase 27 L (30-135) U/L CK-MB (CK-2) TNP CK-MB (CK-2) Rel Index TNP Troponin I < 0.012 (0.01-0.034) ng/mL NT-Pro-B Natriuret Pep 52 (<125) pg/mL Total Protein 7.9 (6.3-8.2) g/dL Albumin 4.3 (3.5-5.0) g/dL Globulin 3.6 (1.7-4.1) g/dL Albumin/Globulin Ratio 1.2 (1.0-2.8) Lipase 73 (23-300) U/L SARS-CoV-2 (PCR) (Negative) 12/15/21 12/15/21 Range/Units 01:40 03:46 WBC (4.5-11.0) X10^3/uL RBC (4.0-5.2) X10^6/uL Hgb (12.0-16.0) g/dL Hct (36-46) % MCV (80-100) fL MCH (26-34) PG MCHC (30-36) % RDW (11.6-14.8) % Plt Count (150-400) X10^3/uL Neut % (Auto) (50-75) % Lymph % (Auto) (25-40) % Morrow % (Auto) (3-14) % Eos % (Auto) (2-4) % Baso % (Auto) (0-2) % Neut # (Auto) (2265-3382) /uL Lymph # (Auto) (1841-4456) /uL Morrow # (Auto) (0-900) /uL Eos # (Auto) (0-450) /uL Baso # (Auto) (0-100) /uL PT (10.1-12.7) SECONDS INR (0.9-1.3) APTT (26.4-36.2) SECONDS D-Dimer (<230) ng/mL Sodium (137-145) mmol/L Potassium (3.4-5.1) mmol/L Chloride (98-107) mmol/L Carbon Dioxide (22-32) mmol/L BUN (7-17) mg/dL Creatinine (0.52-1.04) mg/dL Estimated GFR (>60) mL/min BUN/Creatinine Ratio (6-22) Glucose (80-110) mg/dL Calcium (8.4-10.2) mg/dL Total Bilirubin (0.2-1.3) mg/dL AST (14-36) IU/L ALT (<35) IU/L Alkaline Phosphatase (38-126) U/L Total Creatine Kinase 23 L (30-135) U/L CK-MB (CK-2) TNP CK-MB (CK-2) Rel Index TNP Troponin I < 0.012 (0.01-0.034) ng/mL NT-Pro-B Natriuret Pep (<125) pg/mL Total Protein (6.3-8.2) g/dL Albumin (3.5-5.0) g/dL Globulin (1.7-4.1) g/dL Albumin/Globulin Ratio (1.0-2.8) Lipase (23-300) U/L SARS-CoV-2 (PCR) Negative (Negative) MDM Narrative Medical decision making narrative: 71-year-old female presents with left-sided chest pressure that started at rest. She had radiation of the discomfort and some associated dizziness. Symptoms completely resolved with nitro. Troponin x2 and EKG are unremarkable. Heart score is 4, and she is in appropriate for discharge and will require hospitalization for trending of cardiac enzymes and further workup, likely to include echocardiogram and provocative testing. Patient understands and agrees with the plan Discharge Plan Departure Patient Disposition: Admitted as Observation Clinical Impression: Chest pain Prescriptions: No Action tramadol 50 mg tablet 50 mg PO Q6H PRN (Reason: acute abdominal pain) Qty: 10 0RF Rx Instructions: take with tylenol hydrocodone-acetaminophen 5-325 mg tablet 1 tab PO Q4-6H PRN (Reason: pain) Qty: 10 0RF ciprofloxacin HCl 500 mg tablet 500 mg PO BID Qty: 20 0RF metronidazole 250 mg tablet 500 mg PO TID 0RF prednisone 50 mg tablet 50 mg PO DAILY Qty: 5 0RF lidocaine 5 % adhesive patch,medicated 1 patch TOP DAILY Qty: 30 0RF Rx Instructions: leave on most painful area for up to 12 hrs cyclobenzaprine 10 mg tablet 10 mg PO BEDTIME PRN (Reason: muscle spasm) Qty: 7 0RF Referrals: Kendrick Naqvi MD [Primary Care Provider] -
[2021-12-15] MEDS: NITROGLYCERIN 0.4 MG SL TAB SL ×4 (03:52→23:32)
[2021-12-15 04:04] LABS: Creatine Kinase 23 U/L (30-135)
--- NOTE | 2021-12-15 04:11 | PC.NURSE ---
0/10 chest pain after Nitro x1
[2021-12-15 04:17] LABS: Troponin I < 0.012 ng/mL (0.01-0.034)
--- NOTE | 2021-12-15 05:25 | PM.HP.1 ---
History of Present Illness History of Present Illness Chief complaint: chest pain 45 min Narrative: Charisma Luna is a pleasant 71 y.o. female who presented to the ED after having developed chest pain around midnight. She was reading the Bible which apparently helps her sleep and pain initially started being ?annoying? that became harder and harder to ignore she describes the pain as being persistent and deep pain rather than throbbing. It radiated to her left side and into her neck. She states that it lasted for about 45 minutes to an hour and it was not relieved until she was administered nitroglycerin. She is unable to take aspirin as she is allergic to it stating that it gives her hives. She denies shortness of breath she did have some lightheadedness when this occurred, she was mildly nauseous but did not vomit, denied abdominal pain, changes in bowel or bladder control, or neuropathy in her feet. She does endorse having some numbing and tingling of her hands she attributes to her arthritis. Chest x-ray done in the ED was unremarkable as well as her EKGs. Her she is afebrile, blood pressure 164/92, heart rate 69, respiratory rate 13, oxygen saturation 96% on room air she weighs 100 and 10 kg with a BMI of 37.9. CBC is unremarkable, chemistries are unremarkable and a 1st 2 troponins are negative. Glucose is mildly elevated at 111, and COVID 19 PCR is negative. Her parents at the age of their mid to late 80s approximately 1 week apart both of which had heart issues and her father having survived a massive PA. in 2019 she underwent a cardiac workup including a nuclear stress test and an echocardiogram. The echocardiogram was normal. Nuclear stress test done in 2019 stated This is an abnormal myocardial perfusion study which showed cqyrj-ba-lsmwmwwf-sized mild reversible ischemia of anterior wall and distal anterior septum.? This study doesn't have any prone images.? On raw data, there was breast shadow seen as well.? However, resting supine images revealed normal myocardial perfusion.? Hence, this defect appears to be true defect.? Overall, left ventricular (LV) systolic function is preserved.? No obvious wall motion abnormalities.? No transient ischemic dilatation.? Lung/heart ratio is 0.29, which is within normal limits. From what I can tell from the reports she had seen Dr. Chen and we should obtain her old record from their office. Patient History Medical History Dizziness History of diverticulitis of colon History of duodenal ulcer Hypertension Impairment of balance Osteoarthritis Surgical History History of bilateral cataract extraction Status post appendectomy Status post carpal tunnel release of both wrists Status post cholecystectomy Status post hysterectomy Family & Social History Family History Mother Chronic kidney disease with end stage renal failure on dialysis Myocardial infarct Father Diabetes type 2, uncontrolled Myocardial infarct Brother Morbid obesity Pancreatic cancer Brother Pancreatic cancer Safety & Behavioral: Feels Safe in Current Yes Environment Tobacco & Substance use: Smoking Status Never smoker alcohol intake never alcohol intake frequency other Substance Use Type does not use Meds Home Medications and Allergies Home Medications Medication Instructions Recorded Confirmed Type tramadol 50 mg tablet 50 mg PO Q6H PRN #10 tab 06/17/18 Rx ciprofloxacin HCl 500 mg tablet 500 mg PO BID #20 tab 11/03/18 11/11/18 Rx hydrocodone 5 mg-acetaminophen 325 1 tab PO Q4-6H PRN #10 tab 11/03/18 11/11/18 Rx mg tablet metronidazole 250 mg tablet 500 mg PO TID 11/11/18 11/11/18 History prednisone 50 mg tablet 50 mg PO DAILY #5 tab 11/11/18 Rx cyclobenzaprine 10 mg tablet 10 mg PO BEDTIME PRN #7 tab 11/07/19 Rx lidocaine 5 % topical patch 1 patch TOP DAILY #30 each 11/07/19 Rx Allergies Allergy/AdvReac Type Severity Reaction Status Date / Time aspirin Allergy Verified 09/02/21 11:13 ciprofloxacin Allergy Hives Verified 09/02/21 11:13 metronidazole [From Flagyl] Allergy Hives Verified 09/02/21 11:13 Review of Systems Review of Systems ROS: Yes All systems reviewed with the patient and are negative except as otherwise documented Exam Vital Signs (past 8 hours): - 12/15/21 01:20 12/15/21 01:26 12/15/21 01:30 Temperature 97.5 F L Pulse Rate 75 74 70 Respiratory Rate 18 16 Blood Pressure 192/80 H 149/73 H Pulse Oximetry 96 97 97 12/15/21 01:39 12/15/21 02:00 12/15/21 02:01 Temperature Pulse Rate 66 65 64 Respiratory Rate 19 22 15 Blood Pressure 141/67 H 150/69 H Pulse Oximetry 96 97 95 12/15/21 02:30 12/15/21 02:31 12/15/21 03:00 Temperature Pulse Rate 53 L 56 L 63 Respiratory Rate 13 13 14 Blood Pressure 130/61 139/65 Pulse Oximetry 93 96 95 12/15/21 03:30 12/15/21 04:00 Temperature Pulse Rate 67 73 Respiratory Rate 22 13 Blood Pressure 158/72 H 150/72 H Pulse Oximetry 96 96 Oxygen Delivery Method Room Air Narrative Exam Narrative: Gen: Alert, oriented, obese 71 y.o. female, pleasant HEENT: normocephalic, atraumatic, conjunctiva clear, sclera non-icteric, oral mucosa pink and moist Neck: supple, full ROM, no JVD, trachea is midline Resp: Lungs CTA, non-labored breathing CV: RRR, no murmur or rubs Abd: soft, non-tender, normoactive BTs Skin: no lesions or rashes, dry and intact Neuro: Alert and oriented X 4 w/no focal deficits. Speech clear and coherent. Extremities: trace edema of the lower extremities moves all 4 extremities, is ambulatory, negative Radha?s sign Psyche: normal mood and affect. Objective Labs Result Diagrams: 12/15/21 01:30 12/15/21 01:30 Labs: Laboratory Results - last 24 hr 12/15/21 12/15/21 12/15/21 01:30 01:30 01:30 WBC 9.2 RBC 4.58 Hgb 13.1 Hct 39.7 MCV 86.7 MCH 28.6 MCHC 33.0 RDW 13.4 Plt Count 249 Neut % (Auto) 61.3 Lymph % (Auto) 27.1 Greenlee % (Auto) 8.8 Eos % (Auto) 2.0 Baso % (Auto) 0.8 Neut # (Auto) 5600 Lymph # (Auto) 2500 Greenlee # (Auto) 800 Eos # (Auto) 200 Baso # (Auto) 100 PT 11.0 INR 1.0 APTT 39 H D-Dimer < 200 Sodium 139 Potassium 4.0 Chloride 100 Carbon Dioxide 29 BUN 15 Creatinine 0.80 Estimated GFR > 60 BUN/Creatinine Ratio 18.8 Glucose 111 H Calcium 9.3 Total Bilirubin 0.4 AST 20 ALT 14 Alkaline Phosphatase 107 Total Creatine Kinase 27 L CK-MB (CK-2) TNP CK-MB (CK-2) Rel Index TNP Troponin I < 0.012 NT-Pro-B Natriuret Pep 52 Total Protein 7.9 Albumin 4.3 Globulin 3.6 Albumin/Globulin Ratio 1.2 Lipase 73 SARS-CoV-2 (PCR) 12/15/21 12/15/21 01:40 03:46 WBC RBC Hgb Hct MCV MCH MCHC RDW Plt Count Neut % (Auto) Lymph % (Auto) Greenlee % (Auto) Eos % (Auto) Baso % (Auto) Neut # (Auto) Lymph # (Auto) Greenlee # (Auto) Eos # (Auto) Baso # (Auto) PT INR APTT D-Dimer Sodium Potassium Chloride Carbon Dioxide BUN Creatinine Estimated GFR BUN/Creatinine Ratio Glucose Calcium Total Bilirubin AST ALT Alkaline Phosphatase Total Creatine Kinase 23 L CK-MB (CK-2) TNP CK-MB (CK-2) Rel Index TNP Troponin I < 0.012 NT-Pro-B Natriuret Pep Total Protein Albumin Globulin Albumin/Globulin Ratio Lipase SARS-CoV-2 (PCR) Negative Assessment & Plan Assessment & Plan narrative: Charisma Luna is placed into observation further evaluation and workup of chest pain. 1. Chest pain r/o ACS, acute, present on admission ? Limited Echo in am ? Pharmacological stress test ? Received nitro X 2 in the ED, the second dose given exertion when I asked her to sit up to auscultate her lungs. ? EKG shows no ischemic changes ? Trend troponin X 2 are negative 2. Hypertension ? Start/continue lisinopril 5 mg daily She tends to run bradycardic, so a beta pancho may not be indicated 3. HLD ? Lipid panel, pending ? Start/continue atorvastatin 40 mg po at bedtime 4Risk stratification ? Fasting lipid panel scheduled for 0500 labs ? A1c is pending VTE Prophylaxis: Wells risk score 0 [X]Enoxaparin 40 mg subQ once daily X Bilateral SCDs Patient is placed into observation as her stay is not expected to exceed 2 midnights. FEN: IV fluids: saline lock, diet: heart healthy, labs: CBC, C/BMP, liver enzymes, [employer] None Dispo: Unknown at this time Code status: DNR/DNI as discussed with the patient who identifies her Nito as her surrogate and POA. [X] I have utilized all available immediate resources to obtain, update, or review of the patient's current medications COVID-19 COVID-19 status: Negative Result date/Date tested (Pos, Neg/Pending): 12/15/21 Scores Wells' Criteria for PE Clinical signs and symptoms of DVT: No PE is #1 Dx or equally likely: No Heart rate > 100: No Immobilization at least 3 days or surg in previous 4 weeks: No History of PE or DVT: No Hemoptysis: No Malignancy w/Treatment within 6 months or palliative: No Wells' PE Score total: 0 Quality VTE Deep Vein Thrombosis/Pulmonary Embolism Present on Admission: No MIPS - Admit I confirm the patient?s Advance Care Plan is present, Code status is documented, Surrogate decision maker is in patient?s record [If Yes, STOP here]: Yes MIPS - DC The patient has current or prior documentation of left ventricular ejection fraction (LVEF) less than 40%, or moderate or severely depressed left ventricular systolic function.: No
--- NOTE | 2021-12-15 06:19 | DI.ECHO.S_ITS ---
[facility]---------+ [facility] +---------+ : : [address] : : : : [id number] : : : : Phone: [phone]+ Echocardiogram Report + + :Name: ANDRIA BEDOLLA Study Date: 12/15/2021 Height: 67 in : :[facility] ReadingLocation: Weight: 242 lb : : Gender: Female BSA: 2.2 m2 : :: 1950 Age: 71 yrs BP: 164/92 mmHg: :Reason For Study: Chest pain : :Ordering Physician: KEDAR, : :HIRAM Performed By: Michael Del Toro : :Referring: HIRAM THACKER : + + Interpretation Summary Normal sinus rhythm. Normal LV size, wall thickness, wall motion and LV systolic function. EF is 65-70%. Miild LA enlargement; otherwise normal chamber sizes. No significant valvular abnormalities. Procedure: The study quality was technically adequate. Comparison is made with the echocardiogram of 01/28/2019. A two-dimensional transthoracic echocardiogram with color flow and Doppler was performed in limited views only. Left Ventricle: The left ventricle is normal in size and wall thickness. Left ventricular systolic function is normal. The ejection fraction is estimated to be 65-70%. There are no focal wall motion abnormalities. Right Ventricle: The right ventricle is normal in size and function. Mitral Valve: The mitral valve is normal. There is no mitral regurgitation noted. Aortic Valve: The aortic valve is trileaflet. The aortic valve opens well. No aortic regurgitation is present. Tricuspid Valve: The tricuspid valve is normal. There is a trace or physiologic amount of tricuspid regurgitation. Pulmonary artery pressures cannot be estimated because of the lack of a measurable TR jet velocity. Great Vessels: The IVC is of normal diameter and collapses greater than 50% with a sniff. This suggests a low right atrial pressure of 3 mm Hg. Pericardium/ Pleura There is no pericardial effusion. There is no pleural effusion. MMode/2D Measurements & Calculations LVIDd: 5.0 cm TAPSE: 2.7 cm LVIDs: 2.9 cm FS: 42.9 % IVSd: 0.87 cm LVPWd: 0.79 cm LV santiago. diameter/BSA (cm/m^2): 2.3 LV sys. diameter/BSA (cm/m^2): 1.3 Electronically signed by: Gianna Brooks M.D. on Reading Physician:12/15/2021 11:13 AM
[2021-12-15 06:49] LABS: BUN Creatinine Ratio 18.6 (6-22); Blood Urea Nitrogen 13 mg/dL (7-17); Calcium 8.9 mg/dL (8.4-10.2); Carbon Dioxide 28 mmol/L (22-32); Chloride 105 mmol/L (98-107); Cholesterol 156 mg/dL (140-199); Estimated Glomerular Filt Rate > 60 mL/min (>60); Glucose 108 mg/dL (80-110); HDL Cholesterol 48 mg/dL (40-60); HEMOLYSIS < 15 (0-50); LDL Cholesterol Calculated 94 mg/dL (<100); Potassium 3.8 mmol/L (3.4-5.1); Sodium 140 mmol/L (137-145); Triglycerides 68 mg/dL (35-150)
[2021-12-15 06:53] LABS: Hemoglobin A1C% w Est Avg Glu 5.8 % (4.0-6.0)
[2021-12-15] MEDS: ENOXAPARIN 40 MG/0.4 ML SYRINGE SUBCUT (10:00)
[2021-12-15 10:58] LABS: Troponin I < 0.012 ng/mL (0.01-0.034)
--- NOTE | 2021-12-15 16:00 | PC.NURSE ---
Admit from ER 1340 via WC. A/o x4, able to ambulate to BR with SBA Tele placed NSR. Spo2 97% RA Denies CP or SOB. Education provided for cardiac testing 12/16. Pt verbalizes understanding Diet order placed. Call light in reach.
[2021-12-15 17:12] LABS: Troponin I < 0.012 ng/mL (0.01-0.034)
[2021-12-15] MEDS: diphenhydrAMINE 25 MG TABLET 50 MG PO (22:04)
[2021-12-15] MEDS: ACETAMINOPHEN 325 MG TABLET 650 MG PO (22:04)
[2021-12-15 22:28] LABS: Troponin I < 0.012 ng/mL (0.01-0.034)
--- NOTE | 2021-12-16 00:39 | PC.NURSE ---
Pt c/o chest pain rated 4 out of 10, stated radiating from heart to sternum, no distress/respiratory changes noted, given PRN Nytroglycerin twice as ordered, pt stated chest pain resolved after 2doses, explained side effect, pt verbalized understanding, notified Baldo MAGALLANES, Pt c/o chest pain, given PRN Nytro order, BP/VS, no changes in cardiac rhythm, no additional lab order for troponin. Pt is currently close her eyes, resting quietly. Continue to monitor.
[2021-12-16 01:00] VITALS: O2SAT 95
[2021-12-16 04:00] VITALS: BP 149/61; PULSE 69; RESP 18; TEMP 36.6; O2SAT 96
[2021-12-16 04:48] LABS: Add Manual Diff / Slide Review NO; Basophils Absolute Auto 0 /uL (0-100); Basophils Percent Auto 0.6 % (0-2); Eosinophils Absolute Auto 100 /uL (0-450); Eosinophils Percent Auto 1.6 % (2-4); Hematocrit 38.3 % (36-46); Hemoglobin 13.1 g/dL (12.0-16.0); Lymphocytes Absolute Auto 1900 /uL (1100-4500); Lymphocytes Percent Auto 28.3 % (25-40); Mean Corpuscular HGB Conc 34.1 % (30-36); Mean Corpuscular Hemoglobin 29.2 PG (26-34); Mean Corpuscular Volume 85.7 fL (80-100); Monocytes Absolute Auto 600 /uL (0-900); Monocytes Percent Auto 8.6 % (3-14); Neutrophils Absolute Auto 4100 /uL (1500-7000); Neutrophils Percent Auto 60.9 % (50-75); Platelet Count 208 X10^3/uL (150-400); Red Blood Cell Count 4.47 X10^6/uL (4.0-5.2); Red Cell Distribution Width 13.4 % (11.6-14.8); White Blood Cell Count 6.8 X10^3/uL (4.5-11.0)
[2021-12-16 04:52] LABS: BUN Creatinine Ratio 23.3 (6-22); Blood Urea Nitrogen 17 mg/dL (7-17); Calcium 9.1 mg/dL (8.4-10.2); Carbon Dioxide 28 mmol/L (22-32); Chloride 106 mmol/L (98-107); Estimated Glomerular Filt Rate > 60 mL/min (>60); Glucose 101 mg/dL (80-110); HEMOLYSIS < 15 (0-50); Potassium 4.2 mmol/L (3.4-5.1); Sodium 140 mmol/L (137-145)
[2021-12-16 05:21] LABS: Thyroid Stimulating Hormone 3.84 uIU/mL (0.47-4.68)
--- NOTE | 2021-12-16 08:36 | P.DS_ITS ---
History of Present Illness History of Present Illness Date Patient Seen: 12/16/21 Chief complaint: chest pain 45 min Narrative: History of Present Illness History of Present Illness Chief complaint: chest pain 45 min Narrative: Charisma Luna is a pleasant 71 y.o. female who presented to the ED after having developed chest pain around midnight.? She was reading the Bible which apparently helps her sleep and pain initially started being ?annoying? that became harder and harder to ignore she describes the pain as being persistent and deep pain rather than throbbing.? It radiated to her left side and into her neck.? She states that it lasted for about 45 minutes to an hour and it was not relieved until she was administered nitroglycerin.? She is unable to take aspirin as she is allergic to it stating that it gives her hives.? She denies shortness of breath she did have some lightheadedness when this occurred, she was mildly nauseous but did not vomit, denied abdominal pain, changes in bowel or bladder control, or neuropathy in her feet.? She does endorse having some numbing and tingling of her hands she attributes to her arthritis. Chest x-ray done in the ED was unremarkable as well as her EKGs.? Her she is afebrile, blood pressure 164/92, heart rate 69, respiratory rate 13, oxygen saturation 96% on room air she weighs 100 and 10 kg with a BMI of 37.9.? CBC is unremarkable, chemistries are unremarkable and a 1st 2 troponins are negative.? Glucose is mildly elevated at 111, and COVID 19 PCR is negative. Her parents at the age of their mid to late 80s approximately 1 week apart both of which had heart issues and her father having survived a massive MA. in 2019 she underwent a cardiac workup including a nuclear stress test and an echocardiogram.? The echocardiogram was normal.? Nuclear stress test done in 2019 stated This is an abnormal myocardial perfusion study which showed tytzw-ct-lbxhbvap-sized mild reversible ischemia of anterior wall and distal anterior septum.? This study doesn't have any prone images.? On raw data, there was breast shadow seen as well.? However, resting supine images revealed normal myocardial perfusion.? Hence, this defect appears to be true defect.? Overall, left ventricular (LV) systolic function is preserved.? No obvious wall motion abnormalities.? No transient ischemic dilatation.? Lung/heart ratio is 0.29, which is within normal limits. From what I can tell from the reports she had seen Dr. Chen and we should obtain her old record from their office. Discharge Providers Provider Date of admission: 12/15/21 04:59 Discharge Date: 12/16/21 Primary care physician: Kendrick Naqvi MD Consults: NA Discharge provider: Andrew Orantes DO Summary Hospital Course Discharge Diagnosis: ATYPICAL CHEST PAIN. CHEST PAIN RULED OUT. CONSIDER ACID REFLUX DISEASE VERSUS PEPTIC ULCER DISEASE DIVERTICULOSIS PER HISTORY. PRIOR HISTORY OF COLECTOMY DUE TO STRICTURE OBESITY. BMI OF 38 HISTORY OF DUODENAL ULCER. Hospital Course: THIS IS A 71-YEAR-OLD FEMALE ADMITTED TO THE HOSPITAL FOR ATYPICAL CHEST PAIN. REPORTEDLY DUE CHEST PAIN STARTED SHORTLY BEFORE COMING TO THE ER. LASTED FOR ABOUT 30 MINUTES ALSO ADDENDUM RESOLVED WITHOUT ANY SPECIFIC TREATMENTS. PATIENT WAS EVALUATED IN THE ER. CHEST X-RAY WAS NEGATIVE FOR ANY ACUTE PROCESS /PNEUMONIA\ TROPONIN WAS NEGATIVE THROUGHOUT THE STAY. PATIENT ALSO A ECHOCARDIOGRAM WHICH WAS NEGATIVE FOR ANY SIGNIFICANT VALVULAR DISEASE OR WALL MOTION ABNORMALITY. HER EJECTION FRACTION WAS WELL ABOVE 60%. SHE REMAINED SYMPTOM FREE OVERNIGHT. NO SIGNIFICANT FINDINGS ON TELEMETRY OR EKG. LDL IS LESS THAN 100 WHICH IS ACCEPTABLE. HOWEVER DUE TO AGE AND OTHER COMORBIDITIES, A LOW-DOSE ASPIRIN AND POSSIBLY STARTING ON A LOW-DOSE LIPID LOWERING AGENT COULD BE REASONABLE. IN ANY CASE, WILL DEFER TO HER PCP FOR FURTHER MANAGEMENT WORKUP AT THIS TIME. PATIENT COULD BE REFERRED TO GASTROENTEROLOGY FOR POSSIBLE EGD IF ACID REFLUX DISEASE /PEPTIC ULCER DISEASE IS SUSPECTED. COULD ALSO BE REFERRED TO CARDIOLOGY OUTPATIENT FOR FURTHER WORKUP IF INDICATED WELL. AT THIS TIME SHE APPEARS TO BE STABLE. SHE WILL BE DISCHARGED TO HOME. ADDITIONAL MANAGEMENT WILL DEFER TO OUTPATIENT PROVIDERS ACTIVITIES WILL BE TOLERATED CARDIAC LOW-FAT/ LOW-CHOLESTEROL DIET RECOMMENDED FOLLOW-UP WITH PRIMARY CARE PHYSICIAN WITHIN 14-21 DAYS OR EARLIER IF NEEDED Status at Discharge Cognitive/behavioral status at discharge: oriented Functional status at discharge: independent ambulation Overall status at discharge: patient is back to baseline Time Spent with Patient Time spent: Greater than 30 minutes Exam Vital Signs (past 8 hours): - 12/16/21 01:00 12/16/21 04:00 Temperature 97.9 F Pulse Rate 69 Respiratory Rate 18 Blood Pressure 149/61 H Pulse Oximetry 95 96 Oxygen Delivery Method Room Air Oxygen Flow Rate 0 Narrative Exam Narrative: NO ACUTE DISTRESS. PATIENT IS ALERT ORIENTED X3. VITAL SIGNS STABLE HEAD ATRAUMATIC NORMOCEPHALIC NECK : SUPPLE WITHOUT ADENOPATHY NO CAROTID BRUITS EYE: EOMI, PERRLA, NORMAL CONJUNCTIVA; NO JAUNDICE CHEST: REGULAR RATE. NO RUBS. PMI IS NON DISPLACED. NO MURMURS; NORMAL S1- S2 PULMONARY: DECREASED BS OVER THE BASES. MILD BIBASILAR CRACKLES NOTED; NO INCREASED DULLNESS TO PERCUSSION ABDOMEN: SOFT. NONTENDER. NONDISTENDED. BOWEL SOUNDS ARE PRESENT IN ALL 4 QUADRANTS. NO MASS. EXTREMITIES: NO EDEMA.. NO CYANOSIS CLUBBING NOTED. NEURO: CRANIAL NERVES 2-12 GROSSLY INTACT. NO FOCAL NEUROLOGICAL DEFICIT NOTED. MSK: NORMAL RANGE OF MOTION FOR AGE. NO JOINT EFFUSION. SKIN: NORMAL FOR ETHNICITY; NO ECCHYMOSIS. NO LESION. GOOD TURGOR.; NO RASHES : NORMAL EXTERNAL GENITALIA. PSYCH : APPROPRIATE MOOD AND AFFECT. ALERT AWAKE ORIENTED X3 Objective ECG Impression: NORMAL SINUS RHYTHM Labs Result Diagrams: 12/16/21 04:20 12/16/21 04:20 Labs: Laboratory Results - last 24 hr 12/15/21 12/15/21 12/15/21 10:25 13:51 16:30 WBC RBC Hgb Hct MCV MCH MCHC RDW Plt Count Neut % (Auto) Lymph % (Auto) Josephine % (Auto) Eos % (Auto) Baso % (Auto) Neut # (Auto) Lymph # (Auto) Josephine # (Auto) Eos # (Auto) Baso # (Auto) Sodium Potassium Chloride Carbon Dioxide BUN Creatinine Estimated GFR BUN/Creatinine Ratio Glucose Calcium Magnesium Troponin I < 0.012 < 0.012 TSH Nasal Screen MRSA (PCR) Negative for mrsa 12/15/21 12/16/21 12/16/21 21:55 04:20 04:20 WBC 6.8 RBC 4.47 Hgb 13.1 Hct 38.3 MCV 85.7 MCH 29.2 MCHC 34.1 RDW 13.4 Plt Count 208 Neut % (Auto) 60.9 Lymph % (Auto) 28.3 Josephine % (Auto) 8.6 Eos % (Auto) 1.6 L Baso % (Auto) 0.6 Neut # (Auto) 4100 Lymph # (Auto) 1900 Josephine # (Auto) 600 Eos # (Auto) 100 Baso # (Auto) 0 Sodium Potassium Chloride Carbon Dioxide BUN Creatinine Estimated GFR BUN/Creatinine Ratio Glucose Calcium Magnesium 2.0 Troponin I < 0.012 TSH Nasal Screen MRSA (PCR) 12/16/21 12/16/21 04:20 04:20 WBC RBC Hgb Hct MCV MCH MCHC RDW Plt Count Neut % (Auto) Lymph % (Auto) Josephine % (Auto) Eos % (Auto) Baso % (Auto) Neut # (Auto) Lymph # (Auto) Josephine # (Auto) Eos # (Auto) Baso # (Auto) Sodium 140 Potassium 4.2 Chloride 106 Carbon Dioxide 28 BUN 17 Creatinine 0.73 Estimated GFR > 60 BUN/Creatinine Ratio 23.3 H Glucose 101 Calcium 9.1 Magnesium Troponin I TSH 3.84 Nasal Screen MRSA (PCR) PFSH Medical History Dizziness History of diverticulitis of colon History of duodenal ulcer Hypertension Impairment of balance Osteoarthritis Surgical History History of bilateral cataract extraction Status post appendectomy Status post carpal tunnel release of both wrists Status post cholecystectomy Status post hysterectomy Family History Mother Chronic kidney disease with end stage renal failure on dialysis Myocardial infarct Father Diabetes type 2, uncontrolled Myocardial infarct Brother Morbid obesity Pancreatic cancer Brother Pancreatic cancer Social History household members: spouse Smoking Status: Never smoker alcohol intake: never substance use type: does not use Discharge Plan Discharge Plan Patient Disposition: Home Discharge orders & Medications Prescriptions: New pantoprazole [Protonix] 40 mg tablet,delayed release (DR/EC) 40 mg PO DAILY Qty: 30 0RF Continued cholecalciferol (vitamin D3) 100 mcg (4,000 unit) Capsule 100 mcg PO DAILY 0RF multivitamin with minerals Combo Pack 1 pkg PO DAILYCC 0RF magnesium 100 mg Tablet 1 mg PO DAILY 0RF Follow up/Referrals: Kendrick Naqvi MD [Primary Care Provider] - Diet/Activity/Treatments Diet: Low-fat and Low-cholesterol Diet comment: HIGH FIBER Activity: TOLERATED Discharge Data Primary Care Provider: Kendrick Naqvi VTE Deep Vein Thrombosis/Pulmonary Embolism Present on Admission: No
[2021-12-16] MEDS: SODIUM CHLORIDE 0.9% FLUSH 10 ML IV (08:37)
[2021-12-16 09:01] VITALS: BP 153/87; PULSE 79; RESP 16; TEMP 36.8; O2SAT 96
--- NOTE | 2021-12-16 10:03 | PC.NURSE ---
late entry: pt ate breakfast. no chest pain. dc instructions given. script sent to pharmacy. IV removed, TELE Dc'd
== END 2021-12-16 10:00 | disposition home or self-care (01) ==
LOC: ED 04:54 → AC 06:36 → ICU 16:30 → AC 12-16 08:34 → ICU 12-16 09:49
PROVIDERS: Admitting Provider Nurse Practitioner Family; Emergency Provider Emergency Medicine; PCP Internal Medicine; Referring Provider Nurse Practitioner Family; Visit Provider Nurse Practitioner Family
DX: R07.89 Other chest pain (principal); I10 Essential (primary) hypertension; E78.5 Hyperlipidemia, unspecified; Z20.822 Contact with and (suspected) exposure to COVID-19; Z66 Do not resuscitate
CPT/HCPCS: 36415; 71045; 80048; 80053; 80061; 82550; 83036; 83690; 83735; 83880; 84443; 84484; 85025; 85379; 85610; 85730; 87635; 87797; 93005; 93307; 94760; 99284; C9803; G0378; J1650

== ENCOUNTER → 2022-03-14 11:05 | Outpatient (CLI) | payer MEDICARE, OTHER, SELFPAY ==
[2021-12-15 14:47] VITALS: BMI 37.9
[2022-03-14 12:09] LABS: COVID19 -Nasal RAPID Negative (Negative)
== END ==
PROVIDERS: PCP Internal Medicine; Visit Provider Surgery
DX: Z20.822 Contact with and (suspected) exposure to COVID-19 (principal); Z01.812 Encounter for preprocedural laboratory examination
CPT/HCPCS: 87635; C9803

== ENCOUNTER 2022-03-17 11:57 | Day surgery (SDC) | payer MEDICARE, OTHER, SELFPAY ==
[2021-12-15 14:47] VITALS: BMI 37.9
--- NOTE | 2022-03-17 | PATH_ITS ---
[facility] Accession Number: [id number] . 01 Material submitted: . PART A: stomach - ANTRUM BIOPSY PART B: duodenum - DUODENUM BIOPSY PART C: gastrointestinal site - GASTRIC POLYP PART D: esophagus - MID ESOPHAGEAL BIOPSY . 01 Diagnosis: A. Antrum, Biopsy: Gastric mucosa with mild reactive gastropathy alterations. No Helicobacter pylori organisms identified on immunohistochemical evaluation. No dysplasia or malignancy. . B. Duodenum, Biopsy: Duodenal mucosa with mild reactive changes suggestive of peptic duodenitis. No evidence of celiac disease. No dysplasia or malignancy. . C. Gastric Polyp, Biopsy: Fundic gland polyp. No Helicobacter pylori organisms identified on immunohistochemical evaluation. No intestinal metaplasia, dysplasia, or malignancy. . D. Mid Esophagus, Biopsy: Esophageal squamous mucosa with slight reactive changes but with no other significant diagnostic alterations. No evidence of eosinophilic esophagitis. No infectious organisms, dysplasia or malignancy identified. [facility] 03/20/2022 1559 Local . 01 Comment: D. This part of the case has also been reviewed by Dr. Alex Sawant, gastrointestinal pathologist, who concurs with the diagnosis. . 01 Electronically signed: . Danni Neil MD, Pathologist NPI- [id number] . 01 Gross description: . Part A: ANTRUM BIOPSY: Received in formalin are 2 fragment(s) of castillo, soft tissue measuring 0.3 x 0.2 x 0.1 cm to 0.2 x 0.1 x 0.1 cm submitted entirely in 1 cassette(s) Part B: DUODENUM BIOPSY: Received in formalin is 1 fragment(s) of castillo, soft tissue measuring 0.4 x 0.2 x 0.1 cm submitted entirely in 1 cassette(s) Part C: GASTRIC POLYP: Received in formalin is 1 fragment(s) of castillo, soft tissue measuring 0.2 x 0.2 x 0.1 cm submitted entirely in 1 cassette(s) Part D: MID ESOPHAGEAL BIOPSY: Received in formalin are multiple fragment(s) of castillo, soft tissue measuring 0.5 x 0.5 x 0.1 cm in aggregate submitted entirely in 1 cassette(s) /CPE 03/18/2022 0647 Local . 01 Microscopic: . A,C . An immunohistochemical stain was performed to evaluate for Helicobacter organisms and is negative. The control stain showed appropriate reactivity. . . . * This test was developed and its performance characteristics determined by [employer] ([employer]). It has not been cleared or approved by the U.S. Food and Drug Administration. The FDA has determined that such clearance or approval is not necessary. This test is used for clinical purposes. It should not be regarded as investigational or for research. . 01 Pathologist provided ICD-10: K29.60, K29.80, D13.1 . 01 CPT . 064722, 211453, 049602, [id number], K35531 Specimen Comment: A courtesy copy of this report has been sent to [phone] Performed at: 01 [facility] [address] [place] [address] [address], [place], [place] [id number] MD Tarik Diaz MD Phone: [phone]
[2022-03-17 12:17] VITALS: BP 134/71; PULSE 66; RESP 18; TEMP 36.1; O2SAT 99; BMI 38.4
[2022-03-17] MEDS: SODIUM CHLORIDE 0.9% 1,000 ML 84 ML IV (12:26)
--- NOTE | 2022-03-17 12:33 | PM.HP.1 ---
History of Present Illness History of Present Illness Time Patient Seen: 12:34 Chief complaint: SDC Narrative: I reviewed the note from February [address] Beck. No significant changes at this time. The patient has not had a speech pathology evaluation yet. Patient History Medical History Dizziness History of diverticulitis of colon History of duodenal ulcer Hypertension Impairment of balance Osteoarthritis Surgical History History of bilateral cataract extraction Status post appendectomy Status post carpal tunnel release of both wrists Status post cholecystectomy Status post hysterectomy Family & Social History Family History Mother Chronic kidney disease with end stage renal failure on dialysis Myocardial infarct Father Diabetes type 2, uncontrolled Myocardial infarct Brother Morbid obesity Pancreatic cancer Brother Pancreatic cancer Social History: household members spouse Tobacco & Substance use: Smoking Status Never smoker alcohol intake never alcohol intake frequency other Substance Use Type does not use Meds Home Medications and Allergies Home Medications Medication Instructions Recorded Confirmed Type cholecalciferol (vitamin D3) 100 100 mcg PO BID 12/15/21 03/17/22 History mcg (4,000 unit) capsule magnesium 100 mg tablet 1 mg PO DAILY 12/15/21 03/17/22 History multivitamin with minerals 1 pkg PO DAILYCC 12/15/21 03/17/22 History Allergies Allergy/AdvReac Type Severity Reaction Status Date / Time aspirin Allergy Verified 03/17/22 12:15 ciprofloxacin Allergy Hives Verified 03/17/22 12:15 metronidazole [From Flagyl] Allergy Hives Verified 03/17/22 12:15 Review of Systems Review of Systems ROS: Yes All systems reviewed with the patient and are negative except as otherwise documented Exam Vital Signs (past 8 hours): - 03/17/22 12:17 Temperature 96.9 F L Pulse Rate 66 Respiratory Rate 18 Blood Pressure 134/71 Pulse Oximetry 99 Oxygen Delivery Method Room Air Oxygen Flow Rate 0 Oxygen Delivery Method Room Air Oxygen Flow Rate 0 Const General: cooperative HENMT Head: normal to inspection Eyes General: appearance normal, both eyes and all related structures Neck Neck: normal visual inspection Chest Chest: normal inspection of the chest Resp Effort & Inspection: normal respiratory effort Cardio Rate: regular rate GI Inspection: normal to inspection Skin General: no rashes or lesions noted Neuro General: patient alert and patient awake Extrem General: normal to inspection and no pedal edema Psych Appearance: grossly normal Assessment & Plan Assessment & Plan narrative: 71-year-old female with a history of dysphagia. EGD is pursued today. Time Spent With Patient Critical Care time: I spent a total of [] minutes of critical care time on this patient's care today; this time is exclusive of procedural time.
--- NOTE | 2022-03-17 12:35 | PM.PREOP ---
Pre-operative Note COVID-19 COVID-19 status: Negative Result date/Date tested (Pos, Neg/Pending): 03/14/22 Criteria for continued procedure: Possibility delay results in more complex future surgery or treatment Interval Note History & Physical reviewed/Exam performed by Physician: Yes Changes to H&P: No ASA Class (for procedural sedation): II
--- NOTE | 2022-03-17 13:58 | P.OP.EGD_ITS ---
Operative Date/Time/Diagnoses Date of procedure: 03/17/22 Time of procedure: 13:58 Pre-op diagnosis: Dysphagia Post-op diagnosis: same Procedure & Clinicians Study performed: EGD with biopsies Same procedure as scheduled: Yes Indications: Dysphagia Surgeon: Elton Armenta Procedure Notes SCOAP/Timeout: Done Procedure in detail: After the risks and benefits were explained, written and verbal informed consent was obtained. The patient was brought into the procedure room and placed into the left lateral decubitus position. Please see nurse solution coordinator notes for sedation details. The scope was introduced into the mouth through the bite block and advanced under direct visualization to the 2nd portion of the duodenum. The scope was slowly withdrawn carefully examining the mucosa for any defects or lesions. Retroflexed views were accomplished in the stomach. The stomach was decompressed, the scope was then removed from the patient who tolerated the procedure well. Sedation minutes: 10 Complications: none Impression: 1. Duodenum: There was some scattered subtly erythematous slightly denuded mucosa throughout the 2nd portion. Biopsies were acquired for histopathologic analysis. 2. Stomach: Patient had a rather diffuse gastropathy characterized by erythematous and slightly friable appearing mucosa in the antrum. No ulcers no mass lesions no outlet obstruction. Biopsies were taken from the antrum for exclusion of H pylori or other pathology. Retroflexed views of the LES were unremarkable. There was a diminutive polyp removed from the proximal gastric body. 3. Esophagus: The squamocolumnar junction correlated with the top of the gastric folds. The GEJ was at 41 cm from the incisors. There was no evidence of any inflammation. No evidence of Schatzki's or stricture ring. The main body of the esophagus was unremarkable as well. No overt features that might suggest eosinophilic infiltration. However in light of her symptoms, midesophageal biopsies were acquired to exclude EoE. Endoscopic diagnosis 1. Gastropathy 2. Duodenopathy 3. Gastric polyps Post-procedure Plan for aftercare: 1. Await histopathology. 2. Contingent on histopathology, I think the next steps to evaluate swallowing dysfunction is going to be a speech pathology based modified barium eval. Disposition: PACU
[2022-03-17 14:01] VITALS: BP 131/73; PULSE 55; RESP 14; TEMP 36.1; O2SAT 96
[2022-03-17 14:06] VITALS: BP 121/67; PULSE 55; RESP 16; O2SAT 96
[2022-03-17 14:11] VITALS: BP 115/60; PULSE 53; RESP 16; O2SAT 95
[2022-03-17 14:15] VITALS: BP 123/71; PULSE 58; RESP 16; O2SAT 96
[2022-03-17 14:20] VITALS: BP 123/71; PULSE 72; RESP 14; TEMP 36.2; O2SAT 95
== END 2022-03-17 14:39 | disposition home or self-care (01) ==
PROVIDERS: PCP Internal Medicine; Referring Provider Internal Medicine Gastroenterology; Visit Provider Internal Medicine Gastroenterology
PROC: 0DJ08ZZ Inspection of Upper Intestinal Tract, Via Natural or Artificial Opening Endoscopic (ICD-10-PCS; CPT 43235; principal; 2022-03-17 13:00)
DX: R13.10 Dysphagia, unspecified (principal); K31.9 Disease of stomach and duodenum, unspecified; K31.7 Polyp of stomach and duodenum
CPT/HCPCS: 43239; J2704; J3010

== ENCOUNTER 2022-04-07 16:41 | Emergency (ER) | payer MEDICARE, OTHER, SELFPAY ==
[2021-12-15 14:47] VITALS: BMI 37.9
[2022-04-07] VITALS (12 sets, daily range): BP systolic 124–158; BP diastolic 62–90; PULSE 78–96; RESP 14–21; TEMP 36.6; O2SAT 96–99; BMI 22.7
--- NOTE | 2022-04-07 16:46 | DI.RAD.S_ITS ---
PROCEDURE: XR CHEST 1V INDICATIONS: chest pain TECHNIQUE: One view of the chest was acquired. COMPARISON: [facility], CR, XR CHEST 1V, 12/15/2021, 1:30. FINDINGS: Surgical changes and devices: Overlying monitoring wires. Lungs and pleura: Lungs are clear. No pleural effusions or pneumothorax. Mediastinum: Mediastinal contours appear normal. Heart size is normal. Bones and chest wall: No suspicious bony lesions. Overlying soft tissues appear unremarkable. IMPRESSION: No acute cardiopulmonary disease. Dictated by: Ayaka Prieto M.D. on 04/07/2022 at 17:14 Approved by: Ayaka Prieto M.D. on 04/07/2022 at 17:14
[2022-04-07 17:25] LABS: Add Manual Diff / Slide Review NO; Basophils Absolute Auto 0 /uL (0-100); Basophils Percent Auto 0.4 % (0-2); Eosinophils Absolute Auto 200 /uL (0-450); Eosinophils Percent Auto 1.8 % (2-4); Hemoglobin 14.5 g/dL (12.0-16.0); Lymphocytes Absolute Auto 2000 /uL (1100-4500); Lymphocytes Percent Auto 18.9 % (25-40); Mean Corpuscular HGB Conc 33.8 % (30-36); Mean Corpuscular Volume 85.9 fL (80-100); Monocytes Absolute Auto 600 /uL (0-900); Neutrophils Absolute Auto 7700 /uL (1500-7000); Neutrophils Percent Auto 72.9 % (50-75); Platelet Count 253 X10^3/uL (150-400); Red Blood Cell Count 5.01 X10^6/uL (4.0-5.2); Red Cell Distribution Width 13.6 % (11.6-14.8); White Blood Cell Count 10.6 X10^3/uL (4.5-11.0)
[2022-04-07 17:31] LABS: Alanine Aminotransferase 18 IU/L (<35); Albumin 4.3 g/dL (3.5-5.0); Albumin Globulin Ratio 1.1 (1.0-2.8); Alkaline Phosphatase 118 U/L (38-126); Aspartate Aminotransferase 22 IU/L (14-36); BUN Creatinine Ratio 22.2 (6-22); Bilirubin Total 0.3 mg/dL (0.2-1.3); Blood Urea Nitrogen 16 mg/dL (7-17); Calcium 9.3 mg/dL (8.4-10.2); Carbon Dioxide 26 mmol/L (22-32); Chloride 103 mmol/L (98-107); Creatine Kinase 36 U/L (30-135); Estimated Glomerular Filt Rate > 60 mL/min (>60); Globulin 3.8 g/dL (1.7-4.1); Glucose 111 mg/dL (80-110); HEMOLYSIS 19 (0-50); Lipase 116 U/L (23-300); Magnesium 2.1 mg/dL (1.6-2.3); Potassium 3.9 mmol/L (3.4-5.1); Sodium 140 mmol/L (137-145); Total Protein 8.1 g/dL (6.3-8.2)
[2022-04-07 17:41] LABS: Troponin I < 0.012 ng/mL (0.01-0.034)
[2022-04-07 17:45] LABS: Bacteria Urine None Seen; Culture Indicated Urine Cult Not Indicated; RBC Urine 0-1/HPF (0-5/HPF); Squamous Epithelial Cell Urine 0-1 /HPF (0-5/HPF); WBC Urine 0-1/HPF (0-5/HPF)
--- NOTE | 2022-04-07 18:43 | ED.CHESTPAIN ---
HPI - Chest Pain General Chief Complaint: Chest Pain Stated Complaint: Chest pain Time Seen by Provider: 04/07/22 17:59 Source: patient Mode of arrival: Family Vehicle Limitations: no limitations History of Present Illness HPI narrative: Patient is a 71-year-old female who is here for evaluation of chest discomfort and left arm discomfort. States that earlier in the day she was at her normal state of health. States she started to not feel very well. It was difficult for her to specifically describe how she was feeling at the time which she felt like she needed to go lay down which she did. She stated that she went took her blood pressure. Systolic blood pressure was in the 140s. Also stated that her heart rate was fast despite not doing any exertion. Took her blood pressure several more times afterwards and did remain elevated for her which she states she is normally in the 120s systolic. She also had some sharp left-sided chest pressure that was on her right side of her chest as well. She had family members who had heart attacks in the past about the same age that she is currently so she decided to come into the ER for evaluation. She stated that in route the ER she did have the sharp pain down her left arm. She also had pain in her neck. She is never had a heart attack in the past. She has seen a data center operator in the past but that was many years ago. Related Data Home Medications Medication Instructions Recorded Confirmed cholecalciferol (vitamin D3) 100 100 mcg PO BID 12/15/21 03/17/22 mcg (4,000 unit) capsule magnesium 100 mg tablet 1 mg PO DAILY 12/15/21 03/17/22 multivitamin with minerals 1 pkg PO DAILYCC 12/15/21 03/17/22 Allergies Allergy/AdvReac Type Severity Reaction Status Date / Time aspirin Allergy Verified 03/17/22 12:15 ciprofloxacin Allergy Hives Verified 03/17/22 12:15 metronidazole [From Flagyl] Allergy Hives Verified 03/17/22 12:15 Review of Systems Review of Systems ROS Unobtainable: All systems reviewed & are unremarkable except as noted in HPI and below Patient History Medical History Dizziness History of diverticulitis of colon History of duodenal ulcer Hypertension Impairment of balance Osteoarthritis Surgical History History of bilateral cataract extraction Status post appendectomy Status post carpal tunnel release of both wrists Status post cholecystectomy Status post hysterectomy Family History Mother Chronic kidney disease with end stage renal failure on dialysis Myocardial infarct Father Diabetes type 2, uncontrolled Myocardial infarct Brother Morbid obesity Pancreatic cancer Brother Pancreatic cancer Social History household members: spouse Smoking Status: Never smoker alcohol intake: never substance use type: does not use Smoking Status: Never smoker alcohol intake frequency: other Substance Use Type: does not use Exam Initial Vital Signs Initial Vital Signs: Vital Signs Pulse Rate 95 H 04/07/22 16:53 Respiratory Rate 18 04/07/22 16:53 Blood Pressure 152/77 H 04/07/22 16:53 Pulse Oximetry 96 04/07/22 16:53 Const General: cooperative, comfortable and No ill appearing HENMT Head: normal to inspection and normocephalic Neck Neck: normal visual inspection Resp Effort & Inspection: normal respiratory effort Auscultation: clear to auscultation bilaterally Cardio Rate: regular rate Rhythm: regular rhythm GI Inspection: normal to inspection and non-distended Palpation: soft Skin General: no rashes or lesions noted Neuro General: patient alert, patient awake and moves all extremities Extrem General: No edema Psych Appearance: grossly normal and well kempt Scores HEART Score Heart Score history: Slightly Suspicious Heart Score EKG: Normal Heart Score Age: > or = 65 years old Heart Score risk factors: 1-2 risk factors Heart Score troponin: < or = to normal limit Heart Score Total: 3 Course Orders Ordered: ED Orders 04/07/22 18:26 Troponin & CK Cardiac Panel Stat 04/07/22 19:35 Troponin I Stat Vital Signs Vital signs: Vital Signs - 8 hr 04/07/22 19:30 04/07/22 19:30 04/07/22 20:00 Pulse Rate 79 Respiratory Rate 16 Blood Pressure 134/90 129/71 Pulse Oximetry 99 04/07/22 20:00 04/07/22 20:26 04/07/22 20:26 Pulse Rate 78 86 Respiratory Rate 19 14 Blood Pressure 129/77 Pulse Oximetry 97 98 04/07/22 20:30 04/07/22 20:30 Pulse Rate 84 Respiratory Rate 20 Blood Pressure 134/76 Pulse Oximetry 98 MDM - Chest Pain Lab Data Attestation: I reviewed the patient's lab results. Result diagrams: 04/07/22 17:02 04/07/22 17:02 Labs: Lab Results 04/07/22 04/07/22 04/07/22 Range/Units 16:45 17:02 17:02 WBC 10.6 (4.5-11.0) X10^3/uL RBC 5.01 (4.0-5.2) X10^6/uL Hgb 14.5 (12.0-16.0) g/dL Hct 43.0 (36-46) % MCV 85.9 (80-100) fL MCH 29.0 (26-34) PG MCHC 33.8 (30-36) % RDW 13.6 (11.6-14.8) % Plt Count 253 (150-400) X10^3/uL Neut % (Auto) 72.9 (50-75) % Lymph % (Auto) 18.9 L (25-40) % [place] % (Auto) 6.0 (3-14) % Eos % (Auto) 1.8 L (2-4) % Baso % (Auto) 0.4 (0-2) % Neut # (Auto) 7700 H (6309-0724) /uL Lymph # (Auto) 2000 (7864-7150) /uL [place] # (Auto) 600 (0-900) /uL Eos # (Auto) 200 (0-450) /uL Baso # (Auto) 0 (0-100) /uL Sodium 140 (137-145) mmol/L Potassium 3.9 (3.4-5.1) mmol/L Chloride 103 (98-107) mmol/L Carbon Dioxide 26 (22-32) mmol/L BUN 16 (7-17) mg/dL Creatinine 0.72 (0.52-1.04) mg/dL Estimated GFR > 60 (>60) mL/min BUN/Creatinine Ratio 22.2 H (6-22) Glucose 111 H (80-110) mg/dL Calcium 9.3 (8.4-10.2) mg/dL Magnesium 2.1 (1.6-2.3) mg/dL Total Bilirubin 0.3 (0.2-1.3) mg/dL AST 22 (14-36) IU/L ALT 18 (<35) IU/L Alkaline Phosphatase 118 (38-126) U/L Total Creatine Kinase 36 (30-135) U/L CK-MB (CK-2) TNP CK-MB (CK-2) Rel Index TNP Troponin I < 0.012 (0.01-0.034) ng/mL Total Protein 8.1 (6.3-8.2) g/dL Albumin 4.3 (3.5-5.0) g/dL Globulin 3.8 (1.7-4.1) g/dL Albumin/Globulin Ratio 1.1 (1.0-2.8) Lipase 116 (23-300) U/L Urine RBC 0-1/hpf (0-5/HPF) Urine WBC 0-1/hpf (0-5/HPF) Ur Squamous Epith Cells 0-1 /hpf (0-5/HPF) Urine Bacteria None seen (None) Urine Yeast 0-1/hpf (None) Ur Culture Indicated? Cult not indicated 04/07/22 04/07/22 Range/Units 18:26 19:35 WBC (4.5-11.0) X10^3/uL RBC (4.0-5.2) X10^6/uL Hgb (12.0-16.0) g/dL Hct (36-46) % MCV (80-100) fL MCH (26-34) PG MCHC (30-36) % RDW (11.6-14.8) % Plt Count (150-400) X10^3/uL Neut % (Auto) (50-75) % Lymph % (Auto) (25-40) % [place] % (Auto) (3-14) % Eos % (Auto) (2-4) % Baso % (Auto) (0-2) % Neut # (Auto) (9739-3585) /uL Lymph # (Auto) (1847-6772) /uL [place] # (Auto) (0-900) /uL Eos # (Auto) (0-450) /uL Baso # (Auto) (0-100) /uL Sodium (137-145) mmol/L Potassium (3.4-5.1) mmol/L Chloride (98-107) mmol/L Carbon Dioxide (22-32) mmol/L BUN (7-17) mg/dL Creatinine (0.52-1.04) mg/dL Estimated GFR (>60) mL/min BUN/Creatinine Ratio (6-22) Glucose (80-110) mg/dL Calcium (8.4-10.2) mg/dL Magnesium (1.6-2.3) mg/dL Total Bilirubin (0.2-1.3) mg/dL AST (14-36) IU/L ALT (<35) IU/L Alkaline Phosphatase (38-126) U/L Total Creatine Kinase 37 (30-135) U/L CK-MB (CK-2) TNP CK-MB (CK-2) Rel Index TNP Troponin I < 0.012 < 0.012 (0.01-0.034) ng/mL Total Protein (6.3-8.2) g/dL Albumin (3.5-5.0) g/dL Globulin (1.7-4.1) g/dL Albumin/Globulin Ratio (1.0-2.8) Lipase (23-300) U/L Urine RBC (0-5/HPF) Urine WBC (0-5/HPF) Ur Squamous Epith Cells (0-5/HPF) Urine Bacteria (None) Urine Yeast (None) Ur Culture Indicated? Urine Dip Bedside Urine Glucose Negative Bedside Urine Bilirubin - Negative Bedside Urine Ketone + 15 Urine Specific [place] 1.015 Bedside Urine Occult Blood - Negative Bedside Urine pH 6.0 Bedside Urine Protein - Negative Bedside Urine Urobilinogen - Negative Bedside Urine Nitrite - Negative Bedside Urine Leukocytes - Negative Esterase Imaging Data Chest x-ray: Radiologist's Impression: [address] [address] XRay Report Signed Patient: Charisma Luna MR#: [id number] : 1950 Acct:[id number] Age/Sex: 71 / F Date of Service: 04/07/22 Loc: ED Accession Number: [id number] ?? Procedure: XR chest 1V Ordering Provider: Sailaja Brown D.O. PROCEDURE:? XR CHEST 1V ? INDICATIONS:? chest pain ? TECHNIQUE:? One view of the chest was acquired.? ? COMPARISON:? [facility], CR, XR CHEST 1V, 12/15/2021, 1:30. ? FINDINGS:? ? Surgical changes and devices:? Overlying monitoring wires. ? Lungs and pleura:? Lungs are clear.? No pleural effusions or pneumothorax.? ? Mediastinum:? Mediastinal contours appear normal.? Heart size is normal.? ? Bones and chest wall:? No suspicious bony lesions.? Overlying soft tissues appear unremarkable.? ? IMPRESSION:? No acute cardiopulmonary disease.? ? ? Dictated by: Ayaka Prieto M.D. on 04/07/2022 at 17:14 ? ? Approved by: Ayaka Prieto M.D. on 04/07/2022 at 17:14?? ECG Data Attestation: I personally reviewed and interpreted this ECG as follows: Interpretation: Sinus rhythm Ventricular rate 93 Normal axis Normal QRS Normal QTC No ST T wave changes MDM Narrative Medical decision making narrative: Low risk heart score, 2 negative troponins. Normal chest x-ray. Unremarkable exam. Had a discussion with the patient regarding her presenting symptoms. Low suspicion for ACS however patient does require further risk stratification testing which can be performed as an outpatient. Will have the patient contact her primary doctor to discuss this. She was given return precautions. She expressed understanding and agreement. Discharge Plan Departure Patient Disposition: Home Clinical Impression: Chest pain, Hypertension Instructions: DI for Atypical Chest Pain Activity Restrictions/Additional Instructions: I recommend that you continue to take all of your medications as directed and contact your primary doctor for follow-up to discuss the indications for stress test. Return to the emergency department for any new or worsening symptoms. Prescriptions: No Action cholecalciferol (vitamin D3) 100 mcg (4,000 unit) Capsule 100 mcg PO BID multivitamin with minerals Combo Pack 1 pkg PO DAILYCC magnesium 100 mg Tablet 1 mg PO DAILY Referrals: Kendrick Naqvi MD [Primary Care Provider] - Visit Report Forms: Patient Portal/API
[2022-04-07 18:49] LABS: Creatine Kinase 37 U/L (30-135)
[2022-04-07 19:02] LABS: Troponin I < 0.012 ng/mL (0.01-0.034)
[2022-04-07 20:53] LABS: Troponin I < 0.012 ng/mL (0.01-0.034)
== END 2022-04-07 21:43 | disposition home or self-care (01) ==
PROVIDERS: Emergency Medicine; Emergency Provider Emergency Medicine; PCP Internal Medicine
DX: R07.9 Chest pain, unspecified (principal); I10 Essential (primary) hypertension
CPT/HCPCS: 36415; 71045; 80053; 81003; 81015; 82550; 83690; 83735; 84484; 85025; 93005; 99283; 99284

== ENCOUNTER → 2022-05-19 09:58 | Outpatient (CLI) | payer MEDICARE, OTHER, SELFPAY ==
[2021-12-15 14:47] VITALS: BMI 37.9
--- NOTE | 2022-05-19 | DI.US.S_ITS ---
PROCEDURE: US CAROTID DOPPLER BI INDICATIONS: DIZZINESS TECHNIQUE: Color and pulse Doppler interrogation was performed of both carotid systems, with image documentation and velocity measurements. COMPARISON: None. FINDINGS: Stenosis calculations are based on SRU (Society of Radiologists in Ultrasound) criteria. Right side: Brachial blood pressure: 114/68 mm Hg. Common carotid artery peak systolic velocity: 82 cm/sec. Internal carotid artery peak systolic velocity: 84 cm/sec. Internal carotid artery end diastolic velocity: 19 cm/sec. External carotid artery peak systolic velocity: 80 cm/sec. ICA/CCA peak systolic ratio: 1.0 . Adams scale imaging description: Trace visualized plaque. Percent internal carotid artery stenosis: Less than 50% . Vertebral artery: Flow direction is antegrade. Left side: Brachial blood pressure: 109/72 mm Hg. Common carotid artery peak systolic velocity: 100 cm/sec. Internal carotid artery peak systolic velocity: 71 cm/sec. Internal carotid artery end diastolic velocity: 22 cm/sec. External carotid artery peak systolic velocity: 100 cm/sec. ICA/CCA peak systolic ratio: 0.7 Adams scale imaging description: Trace plaque at the bifurcation Percent internal carotid artery stenosis: Less than 50 . Vertebral artery: Flow direction is antegrade. IMPRESSION: Less than 50% stenosis of the internal carotid arteries bilaterally. Dictated by: Celine Murcia M.D. on 05/19/2022 at 20:59 Approved by: Celine Murcia M.D. on 05/19/2022 at 21:00
== END ==
PROVIDERS: PCP Internal Medicine; Referring Provider Nurse Practitioner Family; Visit Provider Nurse Practitioner Family
DX: I65.23 Occlusion and stenosis of bilateral carotid arteries; R42 Dizziness and giddiness
CPT/HCPCS: 93880

== ENCOUNTER → 2022-05-26 10:43 | Outpatient (CLI) | payer MEDICARE, OTHER, SELFPAY ==
[2021-12-15 14:47] VITALS: BMI 37.9
[2022-05-26 12:54] LABS: COVID19 -Nasal RAPID Negative (Negative)
--- NOTE | 2022-05-27 19:47 | DI.NM.S_ITS ---
DATE OF SERVICE: 05/26/2022 PROCEDURE: Pharmacological perfusion study. INDICATION: Chest pain, noncritical CAD, obesity with underlying diabetes mellitus, hypertension. RADIOPHARMACEUTICAL: 26.0 millicurie technetium-99m Myoview IV was injected at stress and 25.0 millicurie technetium-99m Myoview was injected at rest. CARDIAC STRESS: The patient underwent IV Lexiscan perfusion study under the supervision of an attending staff using standard intravenous Lexiscan, as per protocol. Baseline blood pressure 140/80. The patient remained hemodynamically stable. Baseline rhythm was sinus. During stress, no convincing ischemic changes seen. No significant arrhythmias seen. During Lexiscan injection, patient had minimal dyspnea, chest tightness, as well as headache and dizziness, which got improved with 100 mg of intravenous aminophylline. RAW DATA: Significant breast shadow seen. The patient's weight is 248 pounds. GATED STUDY: Resting LV ejection fraction 73 and stress LV ejection fraction 77 percent without any obvious wall motion abnormalities. Resting end-diastolic volume 79 mL. TID ratio 1.07, which is within normal limits. Lung/heart ratio 0.41, which is within normal limits. MYOCARDIAL PERFUSION SCAN: Stress supine and resting supine images were compared to each other. Please note, that there are no stress prone images. There appears to be predominantly fixed, small size, mildly decreased perfusion of mid anterior wall. No obvious reversible ischemia seen. CONCLUSION: 1. No obvious reversible ischemia. 2. There is a predominantly fixed, small size mid anterior wall defect. There is a large breast shadow seen during raw images. There are no wall motion abnormalities. Anterior wall is moving well. Stress left ventricular ejection fraction 77 percent and resting left ventricular ejection fraction 73 percent. There are no prone images to distinguish tissue attenuation artifact versus old myocardial infarction, however based on above-mentioned fact, most likely we are dealing with tissue attenuation artifact. The patient had a perfusion study in January,, and at that time, there was reversibility in the anterior wall and anteroseptum, but in this study, I do not see any significant reversibility. Correlate clinically. Overall, this is a low-risk myocardial perfusion scan. Charisma Luna - [place] doc#: [id number]/job#: [id number] dd: 05/27/2022 17:03:00 dt: 05/27/2022 19:34:00 DICTATING MD/COPIES TO: Madelyn Abbott MD COPIES MNE: FRITZ;
== END ==
PROVIDERS: PCP Internal Medicine; Referring Provider Nurse Practitioner Family; Visit Provider Nurse Practitioner Family
DX: R07.9 Chest pain, unspecified (principal); I25.10 Atherosclerotic heart disease of native coronary artery without angina pectoris; E66.9 Obesity, unspecified; E11.9 Type 2 diabetes mellitus without complications; I10 Essential (primary) hypertension; Z20.822 Contact with and (suspected) exposure to COVID-19
CPT/HCPCS: 78452; 87635; 93017; A9502; J2785

== ENCOUNTER → 2022-08-23 08:15 | Outpatient (CLI) | payer MEDICARE, OTHER, SELFPAY ==
[2021-12-15 14:47] VITALS: BMI 37.9
--- NOTE | 2022-08-23 08:16 | DI.MRI.S_ITS ---
PROCEDURE: MR LUMBAR SPINE WO CON INDICATIONS: Radiculopathy, lumbar region TECHNIQUE: Noncontrast sagittal T1 spin echo and T2 fast echo, sagittal STIR, and T2 fast spin echo through the lumbar spine. In cases with scoliosis, additional coronal T2 fast spin echo may be performed. COMPARISON: [facility], CR, XR LUMBAR SPINE 2 OR 3 VIEWS, 08/18/2022, 15:15. FINDINGS: Image quality: Excellent. Alignment and Curvature: 5 lumbar type vertebral bodies are present by plain film. Bone Marrow: Marrow is of normal overall signal. No acute vertebral body compression fractures. Mild reactive signal throughout the endplates of the thoracolumbar spine. Spinal Cord: Conus medullaris terminates at the upper L2 level. Visualized cord demonstrates normal signal and size. Paraspinous Soft Tissues: No paravertebral masses. T12-L1: Moderate disc height loss and desiccation. Mild facet and ligamentum flavum hypertrophy. Mild epidural lipomatosis. Mild canal stenosis. Mild bilateral foraminal stenosis. L1-L2: Mild disc height loss and desiccation. Mild facet and ligamentum flavum hypertrophy. Osteophyte protrudes anteriorly into the left lateral recess arising from the left facet joint. Mild canal stenosis. Moderate left and mild right foraminal stenosis. Left L2 nerve root compression. L2-L3: Moderate disc height loss. Mild facet and ligamentum flavum hypertrophy. Mild epidural lipomatosis. Mild canal stenosis. Mild bilateral foraminal stenosis. L3-L4: Moderate disc height loss and desiccation. Mild diffuse disc bulge with superimposed small central protrusion. Mild facet and ligamentum flavum hypertrophy. Mild epidural lipomatosis. Severe canal stenosis. Mild bilateral foraminal stenosis. L4-L5: Moderate disc height loss. Mild bilateral facet hypertrophy. Mild canal stenosis. Moderate left and mild right subarticular foraminal stenosis. L5-S1: Severe disc height loss and desiccation. Mild diffuse disc bulge. Mild bilateral facet hypertrophy. Mild canal stenosis. Mild bilateral foraminal stenosis. IMPRESSION: 1. Multilevel degenerative disc and facet disease, as well as ligamentum flavum hypertrophy and epidural lipomatosis. 2. Multilevel canal stenoses, worst at L3-L4 where there is severe canal stenosis. 3. Left lateral recess stenosis at L1-L2, causing left L2 nerve root compression. Recommend correlation with clinical symptoms to ascertain relevance of this finding. 4. Multilevel foraminal stenoses, worst at L1-L2 and L4-L5 where there are moderate foraminal stenoses. Dictated by: Chasity Mcdonnell M.D. on 08/25/2022 at 8:52 Approved by: Chasity Mcdonnell M.D. on 08/25/2022 at 8:57
== END ==
PROVIDERS: PCP Internal Medicine; Referring Provider Physical Medicine & Rehabilitation; Visit Provider Physical Medicine & Rehabilitation
DX: M51.16 Intervertebral disc disorders with radiculopathy, lumbar region (principal); M51.17 Intervertebral disc disorders with radiculopathy, lumbosacral region; M48.061 Spinal stenosis, lumbar region without neurogenic claudication; M48.07 Spinal stenosis, lumbosacral region
CPT/HCPCS: 72148

== ENCOUNTER 2022-10-23 13:53 | Outpatient (CLI) | payer MEDICARE, OTHER, SELFPAY ==
[2021-12-15 14:47] VITALS: BMI 37.9
--- NOTE | 2022-10-23 13:57 | DI.RAD.S_ITS ---
PROCEDURE: PAIN L INTERLAMINAR/CAUDAL INJ INDICATIONS: SPONDYLOSIS COMPARISON: None. FINDINGS: Fluoroscopic spot filming was performed to verify placement of spinal needles at the L3-4 level(s), as labeled on the films. Appropriate location(s) of the needle tip(s) was confirmed by injection of iodinated contrast. IMPRESSION: Fluoro guidance was provided intraoperatively for translaminar epidural steroid injection at L3-4 level by ordering physician. Dictated by: Lloyd Tomlin M.D. on 10/23/2022 at 16:54 Approved by: Lloyd Tomlin M.D. on 10/23/2022 at 16:54
[2022-10-23 14:50] VITALS: BP 142/76; PULSE 64; RESP 18; TEMP 36.1; O2SAT 94
[2022-10-23 15:04] VITALS: BP 143/78; PULSE 60; RESP 21; O2SAT 98
[2022-10-23] MEDS: BUPIVACAINE 0.25% (PF) VIAL 5 ML INJ (15:07)
[2022-10-23] MEDS: methylPREDNISolone acetate 80 MG/ML VIAL INJ (15:07)
[2022-10-23] MEDS: IOPAMIDOL 15 ML VIAL 3 ML INJ (15:07)
[2022-10-23 15:09] VITALS: BP 169/88; PULSE 60; RESP 19; O2SAT 97
[2022-10-23 15:14] VITALS: BP 160/78; PULSE 66; RESP 15; O2SAT 100
[2022-10-23 15:19] VITALS: BP 153/67; PULSE 61; RESP 20; O2SAT 98
--- NOTE | 2022-10-23 17:22 | P.PCN_ITS ---
Date/Time/Diagnoses Date of procedure: 10/23/22 Time of procedure: 15:00 Procedure Notes Physician: Finn Dalal Total Fluoroscopy time (seconds): 18 Total sedation minutes: 0 Procedure in detail & Post-procedure care: L3-4 Interlaminar Epidural Steroid Injection Indications: Charisma is presenting for treatment of lumbar radiculopathy with low back and leg pain. Preoperative diagnosis: Lumbar radiculopathy Postoperative diagnosis: Same Focused Examination: Ax3 Mood and affect are normal Vital Signs: VSS ASA: 2 Consent: Following review of allergies and potential side effects/complications, including, but not necessarily limited to, infection, allergic reaction, local tissue breakdown, stroke, temporary or permanent nerve injury, paralysis, and possible , the patient indicated that they understood and agreed to procee d.? An informed consent document was signed by the patient, witnessed by a nurse and placed in the patient's chart.? Additionally, other treatment options including medications and physical therapy were reviewed with the patient. All questions were answered. Site was then marked. Anesthesia: Local, oral Valium given prior to procedure Position: Prone Monitoring: NIBP, Pulse oximetry, 3 lead EKG Needle used: 18 G 3.5? Tuohy Contrast: Isovue 300M Injectate: Depo-Medrol 80 mg with 0.25% Bupivacaine 2 mL Technique: The skin was prepped with chloraprep and then draped in a sterile fashion. Time out was performed as per protocol. Oxygen applied via NC. Skin and subcutaneous structures of the needle entry site was then infiltrated with 3 mL of lidocaine 1%. Under AP, lateral and contralateral oblique fluoroscopic c ontrol, the Tuohy needle was guided into the L3-4 epidural space. The space was accessed with loss of resistance technique. Isovue 300M was then injected and the spread was consistent with the epidural space. There was no evidence for intravascular or intrathecal uptake. After negative aspiration, the above- mentioned injectate was then slowly administered and the needle withdrawn. The patient expressed no unusual discomfort or paresthesias during the injection. Band-Aids applied to injection sites. EBL: less than 1 ml Complications: None Post Procedure: Patient was taken to the recovery and monitored. The patient was provided a Pain Log to continue to record the patient's response to the target- specific procedure prior to the patient's follow-up visit with the referring physician. Patient was stable upon discharge. Detailed post procedure instructions were provided. Patient was asked to call in the event of worsening pain, fever, weakness, numbness or bladder or bowel incontinence.
== END 2022-10-23 15:24 | disposition home or self-care (01) ==
PROVIDERS: PCP Internal Medicine; Referring Provider Anesthesiology; Visit Provider Anesthesiology
DX: M54.16 Radiculopathy, lumbar region (principal)
CPT/HCPCS: 62323; J1040; J2250; J3490

== ENCOUNTER → 2022-12-02 15:07 | Outpatient (CLI) | payer MEDICARE, OTHER, SELFPAY ==
[2021-12-15 14:47] VITALS: BMI 37.9
--- NOTE | 2022-12-02 15:10 | DI.RAD.S_ITS ---
PROCEDURE: XR KNEE RT 3V INDICATIONS: Right knee pain TECHNIQUE: 3 views of the knee were acquired. COMPARISON: [facility], , XR KNEE RT 3V, 09/02/2021, 11:19. FINDINGS: Bones: No fractures or dislocations. No suspicious bony lesions. Doubtful joint space narrowing of the lateral tibial plateau. Tiny formed osteophytes about the medial tibial plateau and patella, with associated joint space narrowing. Soft tissues: No joint effusion. No suspicious soft tissue calcifications. IMPRESSION: Mild tricompartmental osteoarthritis. Kellgren-Rylan Grade 1-2. Dictated by: Rakesh Jacobsen M.D. on 12/02/2022 at 16:32 Approved by: Rakesh Jacobsen M.D. on 12/02/2022 at 16:33
--- NOTE | 2022-12-02 15:10 | DI.RAD.S_ITS ---
PROCEDURE: XR KNEE LT 3V INDICATIONS: Left knee pain TECHNIQUE: 3 views of the knee were acquired. COMPARISON: [facility], CR, XR KNEE RT 3V, 09/02/2021, 11:19. FINDINGS: Bones: No fractures or dislocations. No suspicious bony lesions. Tricompartmental joint space narrowing with associated osteophytosis. Soft tissues: No joint effusion. No suspicious soft tissue calcifications. IMPRESSION: Mild tricompartmental osteoarthritis. Kellgren-Rylan Grade 2. Dictated by: Rakesh Jacobsen M.D. on 12/02/2022 at 16:32 Approved by: Rakesh Jacobsen M.D. on 12/02/2022 at 16:32
== END ==
PROVIDERS: PCP Internal Medicine; Referring Provider Anesthesiology; Visit Provider Anesthesiology
DX: M17.0 Bilateral primary osteoarthritis of knee (principal); M25.561 Pain in right knee; M25.562 Pain in left knee
CPT/HCPCS: 73562

== ENCOUNTER → 2023-01-09 10:58 | Outpatient (CLI) | payer MEDICARE, OTHER, SELFPAY ==
[2021-12-15 14:47] VITALS: BMI 37.9
--- NOTE | 2023-01-09 | DI.CT.S_ITS ---
PROCEDURE: CT ABDOMEN LIVER PROTOCOL INDICATIONS: Hepatomegaly, not elsewhere classified TECHNIQUE: 4 phase scanning was performed. Non-contrast 5 mm axial sections acquired from the diaphragm to the iliac crests. Following the administration of intravenous contrast, 5 mm thick arterial-phase, portal venous-phase, and 5-minute delayed phase images were acquired through the liver. 5 mm thick coronal and sagittal reformats were performed. For radiation dose reduction, the following was used: automated exposure control, adjustment of mA and/or kV according to patient size. COMPARISON: CT 01/20/2020. FINDINGS: Image quality: Excellent. Lung bases: Lung bases are clear. Heart size is normal. Liver: Interval development of peripheral calcifications of the cystic lesion without enhancement in segment 5 of the liver, measuring 2.9 x 3.4 x 2.9 centimeters. This has not significantly changed in size compared with 2019, favoring a benign lesion . Other solid organs: Gallbladder and biliary tree: Absent. Spleen: Normal size. Pancreas: No ductal dilation. Adrenal glands: No adrenal nodules. Kidneys: No hydronephrosis. No solid mass. No complex renal cysts which requires follow-up. 1 centimeter hemorrhagic cyst on the inferior pole of the left kidney, benign by Hounsfield units criteria. Nodes and vessels: No retroperitoneal or mesenteric adenopathy by size criteria. Aorta and inferior vena cava are normal in size. Bowel and peritoneum: Unenhanced bowel loops are normal in caliber. No free fluid or air. Bones: No suspicious bony lesions. No vertebral body compression fractures. Miscellaneous: No ventral hernias. IMPRESSION: Interval development of peripheral calcifications of the cystic lesion without enhancement in segment 5 of the liver, measuring 2.9 x 3.4 x 2.9 centimeters. This has not significantly changed in size compared with 2019, favoring a benign lesion . Dictated by: Rakesh Jacobsen M.D. on 01/09/2023 at 13:07 Approved by: Rakesh Jacobsen M.D. on 01/09/2023 at 13:14
[2023-01-09 11:38] LABS: Estimated Glomerular Filt Rate > 60 mL/min (>60)
== END ==
PROVIDERS: Radiology Diagnostic Radiology; PCP Internal Medicine; Referring Provider Internal Medicine Gastroenterology; Visit Provider Internal Medicine Gastroenterology
DX: K76.9 Liver disease, unspecified (principal); R16.0 Hepatomegaly, not elsewhere classified; Z87.19 Personal history of other diseases of the digestive system
CPT/HCPCS: 36415; 74170; 82565

== ENCOUNTER 2023-06-05 18:01 | Emergency (ER) | payer MEDICARE, OTHER, SELFPAY ==
[2021-12-15 14:47] VITALS: BMI 37.9
[2023-06-05] VITALS (15 sets, daily range): BP systolic 139–175; BP diastolic 56–88; PULSE 52–80; RESP 18–20; TEMP 36.7; O2SAT 92–98; BMI 36.1
--- NOTE | 2023-06-05 18:23 | ED.GENADULT ---
HPI - General Adult General Chief complaint: Abdominal Pain Stated complaint: left sided back pain Time Seen by Provider: 06/05/23 18:19 Source: patient Mode of arrival: Ambulatory History of Present Illness HPI narrative: 72-year-old woman with a history of diverticulosis severe enough that she is had a partial colectomy, no prior history of kidney stones and known spinal stenosis with neurogenic claudication presents with 24 hours of left flank pain radiating forward into the left lower quadrant. She describes it is very different from prior diverticulosis/diverticulitis pain. She does not describe fevers. The pain was severe enough last night that she was unable to sleep. She is allergic to aspirin and nonsteroidals upset her stomach so she has taken some Tylenol and has found it ineffective. She is not noticed significant dysuria or hematuria. She is been stooling normally. No chest pain, palpitations. She has had some nausea and a couple episodes of vomiting related to pain. Related Data Home Medications Medication Instructions Recorded Confirmed cholecalciferol (vitamin D3) 100 100 mcg PO BID 12/15/21 03/05/23 mcg (4,000 unit) capsule magnesium 100 mg tablet 1 mg PO DAILY 12/15/21 03/05/23 multivitamin with minerals 1 pkg PO DAILYCC 12/15/21 03/05/23 lidocaine 5 % topical patch 1 patch transdermal PRN 01/20/23 03/05/23 Allergies Allergy/AdvReac Type Severity Reaction Status Date / Time aspirin Allergy Verified 06/05/23 18:10 ciprofloxacin Allergy Hives Verified 06/05/23 18:10 metronidazole [From Flagyl] Allergy Hives Verified 06/05/23 18:10 Review of Systems Review of Systems Narrative: Pertinent positive and negative findings as per HPI Patient History Medical History Osteoarthritis of knees, bilateral Knee pain, bilateral Spinal stenosis, lumbar region with neurogenic claudication Lumbar radiculopathy Osteoarthritis Hypertension History of diverticulitis of colon Impairment of balance Dizziness History of duodenal ulcer Surgical History History of bilateral cataract extraction Status post carpal tunnel release of both wrists Status post hysterectomy Status post appendectomy Status post cholecystectomy Family History Mother Chronic kidney disease with end stage renal failure on dialysis Myocardial infarct Father Diabetes type 2, uncontrolled Myocardial infarct Brother Morbid obesity Pancreatic cancer Brother Pancreatic cancer Social History household members: spouse Smoking Status: Never smoker alcohol intake: never substance use type: does not use Smoking Status: Never smoker alcohol intake frequency: other Substance Use Type: does not use Exam Initial Vital Signs Initial Vital Signs: Vital Signs Temperature 98.0 F 06/05/23 18:04 Pulse Rate 61 06/05/23 18:04 Respiratory Rate 18 06/05/23 18:04 Blood Pressure 166/78 H 06/05/23 18:04 Pulse Oximetry 98 06/05/23 18:04 Oxygen Delivery Method Room Air 06/05/23 18:04 General: Healthy appearing, in mild distress secondary to pain.. Able to give a complete and coherent history. Well-nourished well-developed HEENT: Moist mucous membranes, normal sclera with reactive pupils, Respiratory: Lungs are clear to auscultation, no wheezing no rales no rhonchi. Full and symmetrical air movement Cardiac: Regular rate and rhythm no murmurs no bruits Abdomen: Soft, no rebound or guarding. She has some mild left flank pain and left lower quadrant pain. Skin: Warm and dry, no rashes Neurologic: Moving all extremities with her neurogenic claudication of the lower extremities at her baseline. Extremities: No trauma, well perfused Psych: Cooperative, appropriate insight and affect Course Orders Ordered: ED Orders 06/05/23 18:24 Urine Microscopic Stat 06/05/23 19:35 CMP [Comprehensive Metabolic Panel] Stat Complete Blood Count AUTO DIFF Stat 06/05/23 20:04 CT kidney ureter bladder (KUB) Stat Hydromorphone HCl (Hydromorphone 0.5 Mg Inj) 0.5 mg IV Q15MIN PRN PRN Reason: Pain, Last Admin: 06/05/23 21:56 Dose: 0.5 mg Documented By: Admin: 06/05/23 20:15 Dose: 0.5 mg Documented By: BLADE Discontinued Medications Sodium Chloride (Normal Saline 0.9%) 1,000 mls @ 1,000 mls/hr IV BOLUS ONE Stop: 06/05/23 21:02 Last Infusion: 06/05/23 21:51 Dose: Infused Documented By: Admin: 06/05/23 20:25 Dose: 1,000 mls/hr Documented By: BLADE Ondansetron HCl (Ondansetron 4 Mg/2 Ml Inj) 4 mg IV NOW ONE Stop: 06/05/23 20:04 Last Admin: 06/05/23 20:15 Dose: 4 mg Documented By: BLADE Vital Signs Vital signs: Vital Signs - 8 hr 06/05/23 18:04 06/05/23 18:23 06/05/23 18:23 Temperature 98.0 F Pulse Rate 61 80 Respiratory Rate 18 Blood Pressure 166/78 H 175/79 H Pulse Oximetry 98 96 Oxygen Delivery Method Room Air 06/05/23 18:30 06/05/23 18:30 06/05/23 18:46 Temperature Pulse Rate 52 L Respiratory Rate Blood Pressure 142/56 H 144/74 H Pulse Oximetry 94 Oxygen Delivery Method 06/05/23 18:46 06/05/23 19:00 06/05/23 19:00 Temperature Pulse Rate 61 58 L Respiratory Rate Blood Pressure 143/75 H Pulse Oximetry 93 92 Oxygen Delivery Method 06/05/23 19:15 06/05/23 19:15 06/05/23 19:30 Temperature Pulse Rate 71 59 L Respiratory Rate Blood Pressure 141/83 H Pulse Oximetry 94 97 Oxygen Delivery Method 06/05/23 19:30 06/05/23 19:45 06/05/23 19:45 Temperature Pulse Rate 57 L Respiratory Rate Blood Pressure 149/88 H 149/79 H Pulse Oximetry 93 Oxygen Delivery Method 06/05/23 20:00 06/05/23 20:00 06/05/23 21:05 Temperature Pulse Rate 60 55 L Respiratory Rate 18 Blood Pressure 161/81 H Pulse Oximetry 95 94 Oxygen Delivery Method 06/05/23 21:30 06/05/23 21:31 06/05/23 21:31 Temperature Pulse Rate 59 L 65 Respiratory Rate 20 Blood Pressure 172/77 H Pulse Oximetry 95 95 Oxygen Delivery Method Medical Decision Making Lab Data 06/05/23 19:35 06/05/23 19:35 Labs: Lab Results 06/05/23 06/05/23 Range/Units 18:24 19:35 WBC 14.5 H (4.5-11.0) X10^3/uL RBC 4.50 (4.0-5.2) X10^6/uL Hgb 13.0 (12.0-16.0) g/dL Hct 39.4 (36-46) % MCV 87.7 (80-100) fL MCH 28.9 (26-34) PG MCHC 33.0 (30-36) % RDW 14.5 (11.6-14.8) % Plt Count 263 (150-400) X10^3/uL Neut % (Auto) 84.0 H (50-75) % Lymph % (Auto) 10.4 L (25-40) % Pierce % (Auto) 4.9 (3-14) % Eos % (Auto) 0.2 L (2-4) % Baso % (Auto) 0.5 (0-2) % Neut # (Auto) 86890 H (0319-8798) /uL Lymph # (Auto) 1500 (3743-8984) /uL Pierce # (Auto) 700 (0-900) /uL Eos # (Auto) 0 (0-450) /uL Baso # (Auto) 100 (0-100) /uL Sodium 137 (137-145) mmol/L Potassium 4.3 (3.4-5.1) mmol/L Chloride 102 (98-107) mmol/L Carbon Dioxide 26 (22-32) mmol/L BUN 15 (7-17) mg/dL Creatinine 0.60 (0.52-1.04) mg/dL Estimated GFR > 60 (>60) mL/min BUN/Creatinine Ratio 25.0 H (6-22) Glucose 131 H (80-110) mg/dL Calcium 9.8 (8.4-10.2) mg/dL Total Bilirubin 0.4 (0.2-1.3) mg/dL AST 23 (14-36) IU/L ALT 23 (<35) IU/L Alkaline Phosphatase 84 (38-126) U/L Total Protein 7.6 (6.3-8.2) g/dL Albumin 4.2 (3.5-5.0) g/dL Globulin 3.4 (1.7-4.1) g/dL Albumin/Globulin Ratio 1.2 (1.0-2.8) Urine RBC 0-1/hpf (0-5/HPF) Urine WBC 0-1/hpf (0-5/HPF) Ur Squamous Epith Cells 1-5 /hpf (0-5/HPF) Urine Bacteria None seen (None) Ur Culture Indicated? Cult not indicated Urine Dip Bedside Urine Glucose Negative Bedside Urine Bilirubin - Negative Bedside Urine Ketone + 15 Urine Specific [place] 1.020 Bedside Urine Occult Blood - Negative Bedside Urine pH 6.0 Bedside Urine Protein +/- 15 Bedside Urine Urobilinogen +/- 1mg Bedside Urine Nitrite - Negative Bedside Urine Leukocytes - Negative Esterase Point of care testing: Urine Dip Bedside Urine Glucose Negative Bedside Urine Bilirubin - Negative Bedside Urine Ketone + 15 Urine Specific [place] 1.020 Bedside Urine Occult Blood - Negative Bedside Urine pH 6.0 Bedside Urine Protein +/- 15 Bedside Urine Urobilinogen +/- 1mg Bedside Urine Nitrite - Negative Bedside Urine Leukocytes - Negative Esterase Imaging Data CT KUB: Radiologist's Impression: No stones or hydronephrosis. Stable small hyperdense cyst in lower pole left kidney unchanged dating back to 2019 study. No hydroureter. Normal appearing urinary bladder. 2. Mild peripancreatic fat stranding seen adjacent to tail of pancreas in left upper quadrant, suggest clinical correlation for possible acute pancreatitis. No peripancreatic fluid collection. 3. No bowel obstruction or abnormal bowel wall thickening. No abscess collection. No free fluid or free air. 4. Stable peripherally calcified cystic structure in segment 5 of liver unchanged from prior studies and suggestive of benign process. MDM Narrative Medical decision making narrative: CC: Left flank pain times 24 hours Complicating co-morbidities: Spinal stenosis with neurogenic claudication, prior diverticulitis with partial colectomy. Data collected from: patient, Medical records reviewed: Medical records from Orthopedics, pain management as well as chest pain evaluation and dysphagia evaluation from 2021 are all reviewed Differential considered: Pyelonephritis, kidney stone, diverticulitis, partial bowel obstruction Exam documented above, pertinent findings include: Alert and appropriate, flank pain with some mild left lower quadrant tenderness without rebound or guarding Lab Test results independently reviewed as above. Pertinent findings: CBC shows Slight leukocytosis at 14.5 with positive left shift no anemia Chemistries are reassuring with no acute renal abnormalities Urine is unremarkable with no red cells white cells or bacteria Lipase is within normal limits Imaging studies independently reviewed: No kidney stones, no suggestion of diverticulitis and question of peripancreatic fat stranding, which is likely an incidental finding given the normal lipase Treatments: 1 L of fluid, parenteral ondansetron and hydromorphone Re-evaluations: On re-evaluation the half a mg of Dilaudid has been quite effective in helping with her abdominal pain Discussion: 72-year-old woman presents with left flank and left lower quadrant tenderness. Workup is unremarkable with no obvious explanation for the pain she is currently experiencing. No evidence of diverticulitis, abscess, intra-abdominal mass or tumor, pancreatitis, urinary tract infection, hydronephrosis or kidney stone. Possibility remains that this could be a zoster prodromal pain presentation. Patient states that she has not had chickenpox. I still clearly reviewed the need to closely watch her skin over the next 1-2 days to see if she does develop a zoster type rash. At this point I am going to discharge her home with a small prescription of Percocet, recommendations for MiraLax to avoid constipation and return to the emergency department if she has additional findings or worsening symptoms. She has a follow-up appointment with her primary care physician next week. She is safe for discharge home Discharge Plan Departure Patient Disposition: Home Clinical Impression: Abdominal pain Instructions: DI for Shingles, DI for Abdominal Pain-Adult Activity Restrictions/Additional Instructions: Thank you for coming in today Your workup in the emergency department was very reassuring. Your CT scan did not show diverticulitis, intra-abdominal abscess, kidney stones, kidney infection or other explanation for why you might be having this left-sided abdominal pain. Your lab workup was equally reassuring with no evidence of overwhelming infection, pancreatic, liver or significant kidney abnormalities. You do not have a urinary tract infection One of the possibilities that still remains is shingles. I recognize that you did not have an obvious case of chickenpox when you are younger however, chickenpox can still be a bit tricky. Over the next 2-3 days please make sure that you are physically looking at the left side of your abdomen to watch for red rash with blisters developing. If you do notice that, please contact your primary care doctor and let them know that you have shingles and need antiviral medication to make sure that the rash and consequences are minimal I have given you a small amount of Percocet to use for pain at home. You can take 1-2 every 6 hours. Percocet does have Tylenol plus narcotic in it. If you do choose to use this please take a stool softener such as MiraLax. Narcotics do cause constipation. If you find that you are getting worse or develop any new symptoms, please feel free to return to the emergency department for further evaluation. Prescriptions: No Action cholecalciferol (vitamin D3) 100 mcg (4,000 unit) Capsule 100 mcg PO BID multivitamin with minerals Combo Pack 1 pkg PO DAILYCC magnesium 100 mg Tablet 1 mg PO DAILY lidocaine 5 % adhesive patch,medicated 1 patch transdermal PRN Referrals: Kendrick Naqvi MD [Primary Care Provider] - Stand Alone Forms: Patient Portal/API
[2023-06-05 19:09] LABS: Bacteria Urine None Seen; Culture Indicated Urine Cult Not Indicated; RBC Urine 0-1/HPF (0-5/HPF); Squamous Epithelial Cell Urine 1-5 /HPF (0-5/HPF); WBC Urine 0-1/HPF (0-5/HPF)
--- NOTE | 2023-06-05 19:24 | PC.NURSE ---
pt states this pain is different from her chronic back pain, states she was sitting at the table when the pain started, pain is in the left flank, pt denies any injury or any urinary s/s
[2023-06-05 19:44] LABS: Add Manual Diff / Slide Review NO; Basophils Absolute Auto 100 /uL (0-100); Basophils Percent Auto 0.5 % (0-2); Eosinophils Absolute Auto 0 /uL (0-450); Eosinophils Percent Auto 0.2 % (2-4); Hematocrit 39.4 % (36-46); Lymphocytes Absolute Auto 1500 /uL (1100-4500); Lymphocytes Percent Auto 10.4 % (25-40); Mean Corpuscular Hemoglobin 28.9 PG (26-34); Mean Corpuscular Volume 87.7 fL (80-100); Monocytes Absolute Auto 700 /uL (0-900); Monocytes Percent Auto 4.9 % (3-14); Neutrophils Absolute Auto 12200 /uL (1500-7000); Platelet Count 263 X10^3/uL (150-400); Red Cell Distribution Width 14.5 % (11.6-14.8); White Blood Cell Count 14.5 X10^3/uL (4.5-11.0)
[2023-06-05 19:58] LABS: Alanine Aminotransferase 23 IU/L (<35); Albumin 4.2 g/dL (3.5-5.0); Albumin Globulin Ratio 1.2 (1.0-2.8); Alkaline Phosphatase 84 U/L (38-126); Aspartate Aminotransferase 23 IU/L (14-36); Bilirubin Total 0.4 mg/dL (0.2-1.3); Blood Urea Nitrogen 15 mg/dL (7-17); Calcium 9.8 mg/dL (8.4-10.2); Carbon Dioxide 26 mmol/L (22-32); Chloride 102 mmol/L (98-107); Estimated Glomerular Filt Rate > 60 mL/min (>60); Globulin 3.4 g/dL (1.7-4.1); Glucose 131 mg/dL (80-110); HEMOLYSIS < 15 (0-50); Potassium 4.3 mmol/L (3.4-5.1); Sodium 137 mmol/L (137-145); Total Protein 7.6 g/dL (6.3-8.2)
--- NOTE | 2023-06-05 20:04 | DI.CT.S_ITS ---
PROCEDURE: CT KIDNEY URETER BLADDER (KUB) INDICATIONS: left flank pain TECHNIQUE: Axial sections were acquired from the lung bases to the pubic symphysis. Coronal and sagittal reformats were performed. For radiation dose reduction, the following was used: automated exposure control, adjustment of mA and/or kV according to patient size. COMPARISON: [facility], CT, CT ABDOMEN LIVER PROTOCOL, 01/09/2023, 11:54. FINDINGS: Image quality: Excellent. Lung bases: Unremarkable. Heart: No significant findings. URINARY: Right Kidney: No stones or hydronephrosis. Right Ureter: No hydroureter. Left Kidney: No stones or hydronephrosis. 8 millimeter slightly exophytic and hyperdense structure within lateral cortex of lower pole right kidney is seen measures 52 Hounsfield unit in density. This is unchanged from prior study. Left Ureter: No hydroureter. Bladder: Normal wall thickness. No stones. ABDOMEN: Liver: Peripherally calcified cystic structure in segment 5 of liver is again seen unchanged in size and appearance from previous study.. Gallbladder: Gallbladder is surgically absent. Biliary ducts: Unremarkable. Pancreas: There is questionable peripancreatic fat stranding adjacent to pancreatic tail. No peripancreatic fluid collection. Spleen: Unremarkable. Adrenal Glands: Unremarkable. Stomach and Bowel: There is no bowel obstruction. No abnormal bowel wall thickening or mesenteric fat stranding. Postsurgical changes are seen in sigmoid colon with intact surgical anastomosis. No abscess collection. Peritoneum: No abnormal intraperitoneal fluid. No free air. Ventral Wall: No hernia. Abdominal Nodes: No enlarged retroperitoneal or mesenteric lymph nodes. Vessels: Aorta and inferior vena cava are normal in size. PELVIS: Pelvic Organs: Unremarkable. Pelvic Nodes: Unremarkable. Miscellaneous: No inguinal hernias are seen. Bones: No suspicious bony lesions. No acute vertebral body compression fracture. Degenerative disc disease throughout lower thoracic and lumbar spine is seen. IMPRESSION: 1. No stones or hydronephrosis. Stable small hyperdense cyst in lower pole left kidney unchanged dating back to 2019 study. No hydroureter. Normal appearing urinary bladder. 2. Mild peripancreatic fat stranding seen adjacent to tail of pancreas in left upper quadrant, suggest clinical correlation for possible acute pancreatitis. No peripancreatic fluid collection. 3. No bowel obstruction or abnormal bowel wall thickening. No abscess collection. No free fluid or free air. 4. Stable peripherally calcified cystic structure in segment 5 of liver unchanged from prior studies and suggestive of benign process. Dictated by: Lloyd Tomlin M.D. on 06/05/2023 at 21:05 Approved by: Lloyd Tomlin M.D. on 06/05/2023 at 21:13
[2023-06-05] MEDS: HYDROMORPHONE 0.5 MG INJ IV ×2 (20:15→21:56)
[2023-06-05] MEDS: ONDANSETRON 4 MG/2 ML INJ IV (20:15)
[2023-06-05] MEDS: SODIUM CHLORIDE 0.9% 1,000 ML 1000 ML IV (20:25)
[2023-06-05 22:25] LABS: Lipase 58 U/L (23-300)
[2023-06-05] MEDS: OXYCODONE/APAP 5/325 PREPACK 1 BOTTLE MISC (22:46)
== END 2023-06-05 22:50 | disposition home or self-care (01) ==
PROVIDERS: Emergency Provider Emergency Medicine; PCP Internal Medicine
DX: R10.32 Left lower quadrant pain (principal); R11.2 Nausea with vomiting, unspecified
CPT/HCPCS: 36415; 74176; 80053; 81003; 81015; 83690; 85025; 96361; 96374; 96375; 96376; 99284; J1170; J2405

== ENCOUNTER → 2023-10-15 13:36 | Outpatient (CLI) | payer MEDICARE, OTHER, SELFPAY ==
[2021-12-15 14:47] VITALS: BMI 37.9
--- NOTE | 2023-10-15 13:38 | DI.US.S_ITS ---
PROCEDURE: US PELVIC COMPLETE INDICATIONS: LEFT PELVIC PAIN TECHNIQUE: Real-time scanning was performed of the pelvic organs, with image documentation. Additional endovaginal scanning was necessary due to incomplete visualization of the adnexal and endometrial structures by transabdominal scanning. COMPARISON: None. FINDINGS: Uterus: Surgically absent. Ovaries: The right ovary is not seen. The left ovary measures 2.8 x 1.3 x 1.4 cm, with a calculated ovarian volume of 2.6 cc. There is a left ovarian cyst which measures 1.5 x 1.0 x 1.1 cm. Other: No pathologic free abdominal or pelvic fluid. IMPRESSION: Simple ovarian cyst greater than 1 cm in diameter. Annual sonographic follow-up recommended. We strive to produce accurate, complete, and clear reports of imaging services. To assist us in improving patient care, this report was composed using standard report templates and voice recognition software. Therefore, it may contain abnormal punctuation, insertions and/or omissions. Occasional wrong-word or sound-alike substitutions may occur. Though we review the report and make efforts to correct it, we do recommend that the report be read carefully in proper context to recognize any text inaccuracies. Dictated by: Brenda Myles M.D. on 10/15/2023 at 16:48 Approved by: Brenda Myles M.D. on 10/15/2023 at 16:49
== END ==
LOC: US 13:38
PROVIDERS: PCP Internal Medicine; Referring Provider Internal Medicine; Visit Provider Internal Medicine
DX: N83.292 Other ovarian cyst, left side (principal); R10.30 Lower abdominal pain, unspecified; Z90.710 Acquired absence of both cervix and uterus
CPT/HCPCS: 76830; 76856

== ENCOUNTER → 2023-11-03 11:42 | Outpatient (CLI) | payer MEDICARE, OTHER, SELFPAY ==
[2021-12-15 14:47] VITALS: BMI 37.9
--- NOTE | 2023-11-03 11:44 | DI.MRI.S_ITS ---
PROCEDURE: MR LUMBAR SPINE WO CON INDICATIONS: LUMBAR RADICULOPATHY/LEFT ANKLE INSTABILITY TECHNIQUE: Noncontrast sagittal T1 spin echo and T2 fast echo, sagittal STIR, and T2 fast spin echo through the lumbar spine. In cases with scoliosis, additional coronal T2 fast spin echo may be performed. COMPARISON: [facility], MR, MR LUMBAR SPINE WO CON, 08/23/2022, 8:34. [facility], CT, CT KIDNEY URETER BLADDER (KUB), 06/05/2023, 20:14. FINDINGS: Image quality: Excellent. Alignment and Curvature: There is normal bony alignment. Bone Marrow: Marrow is of normal overall signal. No acute vertebral body compression fractures. Spinal Cord: Conus medullaris terminates at the L1 level. Visualized cord demonstrates normal signal and size. Paraspinous Soft Tissues: No paravertebral masses. T12-L1: Normal appearance. L1-L2: The disc height and disk signal are well-preserved. Mild to moderate facet hypertrophy is seen. There is kjbi-hi-pljkfrje left-sided and no right-sided neural foraminal narrowing. No central canal narrowing is seen. When comparison is made with the prior images, these findings are similar. L2-L3: No significant abnormality is seen. L3-L4: Moderate loss of disc height is seen. Loss of disc signal is seen. Moderate disc bulge is seen, with a central disc protrusion. At least moderate facet hypertrophy can be seen. Associated hypertrophy of the ligamentum flavum can be seen. There is at least moderate right-sided neural foraminal narrowing, with a mild degree of compression upon the exiting right L3 nerve root. There is moderate left-sided neural foraminal narrowing. At least moderate central canal narrowing is seen at this level, as on series 5, image 24. When comparison is made with the prior images, these findings are similar. L4-L5: Mild loss of disc height is seen. The disc signal is relatively well preserved. Mild to moderate disc bulge is seen, which is eccentric to the right. At least moderate facet hypertrophy can be seen. There is iibj-[id number] right-sided and at least moderate left-sided neural foraminal narrowing. No central canal narrowing is seen. No significant change from the prior. L5-S1: At least moderate loss of disc height and disc signal can be seen at this level. Mild generalized disc bulge is seen. Mild facet joint hypertrophy is seen. Moderate bilateral neural foraminal narrowing is seen. No significant central canal narrowing is seen. When comparison is made with the prior images, these findings are similar. Multiple levels of bridging anterior osteophytes can be seen, which are better demonstrated by CT. IMPRESSION: Multiple levels of significant lumbar spine degenerative change can be seen, which are similar to the prior MRI. Dictated by: Stephen Booth M.D. on 11/03/2023 at 15:27 Approved by: Stephen Booth M.D. on 11/03/2023 at 15:31
--- NOTE | 2023-11-03 11:57 | DI.CT.S_ITS ---
PROCEDURE: CT ANKLE LEFT WITHOUT INDICATIONS: LUMBAR RADICULOPATHY/LEFT ANKLE INSTABILITY TECHNIQUE: Noncontrast 1-1.5 mm axial sections acquired from above the tibiotalar joint to the bottom of the calcaneus, with coronal and sagittal reformats. COMPARISON: None. FINDINGS: Image quality: Excellent. Bones: No acute fracture or dislocation of the ankle. Mild degenerative changes of the midfoot, most pronounced at the intermediate cuneiform and the navicular articulation, where there is associated subchondral cystic changes. Small ossification about the lateral and medial malleolus, representing prior injury. Mild degenerative changes of the tibiotalar joint. Small plantar and posterior calcaneal enthesophytes. Soft tissues: Moderate enlargement of the posterior tibialis with heterotopic ossification at the level of the talus head, likely representing tendinosis with prior injury. The peroneal, and extensor tendons are unremarkable. Mild tendinosis of the distal Achilles tendon. IMPRESSION: 1. Chronic changes in the ankle and midfoot as described above. 2. Tendinosis with prior injury of the posterior tibialis tendon at the level of the talus head. Dictated by: Isabel Draper M.D. on 11/03/2023 at 20:07 Approved by: Isabel Draper M.D. on 11/03/2023 at 20:14
== END ==
PROVIDERS: PCP Internal Medicine; Referring Provider Internal Medicine; Visit Provider Internal Medicine
DX: M47.26 Other spondylosis with radiculopathy, lumbar region (principal); M25.372 Other instability, left ankle; M77.32 Calcaneal spur, left foot
CPT/HCPCS: 72148; 73700

== ENCOUNTER 2024-01-27 13:50 | Outpatient (CLI) | payer MEDICARE, OTHER, SELFPAY ==
[2021-12-15 14:47] VITALS: BMI 37.9
[2024-01-27 14:00] VITALS: BP 147/72; PULSE 68; RESP 16; TEMP 36.2; O2SAT 97
[2024-01-27 14:19] VITALS: BP 164/88; PULSE 62; RESP 16; O2SAT 100
[2024-01-27] MEDS: iopamidoL 15 ML VIAL 3 ML INJ (14:21)
[2024-01-27] MEDS: DEXAMETHASONE 10 MG/ML VIAL INJ (14:22)
[2024-01-27 14:24] VITALS: BP 159/83; PULSE 58; RESP 17; O2SAT 100
--- NOTE | 2024-01-27 14:30 | DI.RAD.S_ITS ---
PROCEDURE: PAIN L INTERLAMINAR/CAUDAL INJ INDICATIONS: L3-4 interlaminar CARMINE COMPARISON: [facility], , PAIN L INTERLAMINAR/CAUDAL INJ, 10/23/2022, 15:07. FINDINGS: Fluoroscopic spot filming was performed to verify placement of spinal needles at the L3-4 level(s), as labeled on the films. Appropriate location(s) of the needle tip(s) was confirmed by injection of iodinated contrast. IMPRESSION: Fluoroscopic guidance Approved by: Mele Carrasco M.D. on 01/29/2024 at 18:18
[2024-01-27 14:33] VITALS: BP 167/73; PULSE 61; RESP 18; O2SAT 97
--- NOTE | 2024-01-27 14:33 | P.PCN_ITS ---
Date/Time/Diagnoses Date of procedure: 01/27/24 Time of procedure: 14:30 Procedure Notes Physician: Finn Dalal Total Fluoroscopy time (seconds): 13 Total sedation minutes: 0 Procedure in detail & Post-procedure care: Aborted - L3-4 Interlaminar Epidural Steroid Injection Indications: Charisma is presenting for treatment of lumbar radiculopathy with low back and leg pain. Preoperative diagnosis: Lumbar radiculopathy Postoperative diagnosis: Same Focused Examination: Ax3 Mood and affect are normal Vital Signs: VSS Consent: Following review of allergies and potential side effects/complications, including, but not necessarily limited to, infection, allergic reaction, local tissue breakdown, stroke, temporary or permanent nerve injury, paralysis, and possible , the patient indicated that they understood and agreed to proceed.? An informed consent document was signed by the patient, witnessed by a nurse and placed in the patient's chart.? Additionally, other treatment options including medications and physical therapy were reviewed with the patient. All questions were answered. Site was then marked. Anesthesia: Level Position: Prone Monitoring: NIBP, Pulse oximetry, 3 lead EKG Needle used: 18 gauge, 5? Tuohy Contrast: Isovue 300M Injectate: None Technique: The skin was prepped with chloraprep and then draped in a sterile fashion. Time out was performed as per protocol. Oxygen applied via NC. Skin and subcutaneous structures of the needle entry site was then infiltrated with 3 mL of lidocaine 1%. Under AP, lateral and contralateral oblique fluoroscopic control, the Tuohy needle was guided into the L3-4 epidural space. The space was accessed with loss of resistance technique. Isovue 300M was then injected and the spread was consistent with the epidural space. There was no evidence for intravascular or intrathecal uptake. The patient expressed paresthesias of the left lower extremity during the injection of contrast. Needle repositioned however she continues to have paresthesias with contrast. Needle withdrawn. Offered epidural steroid injection at other level but patient declined. Band- Aids applied to injection sites. EBL: less than 1 ml Complications: None Post Procedure: Patient was taken to the recovery and monitored. The patient was provided a Pain Log to continue to record the patient's response to the target- specific procedure prior to the patient's follow-up visit with the referring physician. Patient was stable upon discharge. Detailed post procedure instructions were provided. Patient was asked to call in the event of worsening pain, fever, weakness, numbness or bladder or bowel incontinence.
[2024-01-27 14:35] VITALS: BP 145/67; PULSE 57; RESP 16; O2SAT 99
== END 2024-01-27 14:38 | disposition home or self-care (01) ==
PROVIDERS: PCP Internal Medicine; Referring Provider Anesthesiology; Visit Provider Anesthesiology
DX: M54.16 Radiculopathy, lumbar region (principal)
CPT/HCPCS: 62323; J1100

== ENCOUNTER → 2024-04-26 13:06 | Outpatient (CLI) | payer MEDICARE, OTHER, SELFPAY ==
[2024-02-22 13:08] VITALS: BMI 37.9
--- NOTE | 2024-04-26 13:07 | DI.RAD.S_ITS ---
PROCEDURE: XR LUMBAR SPINE MIN 4V INDICATIONS: BACK PAIN TECHNIQUE: 5 views of the lumbar spine were acquired, including bilateral oblique views. COMPARISON: None. FINDINGS: Bones: 5 nonrib-bearing vertebrae are present. There is normal bony alignment. No vertebral body compression fractures. No suspicious bony lesions. Calcification of the anterior longitudinal ligament noted throughout the lumbar spine. Disc space narrowing and hypertrophic facet joints also present throughout the lumbar spine particularly in the lower lumbar spine. Soft tissues: Overlying bowel gas pattern is normal. No suspicious soft tissue calcifications. Cholecystectomy clips Oblique images: No pars defects. IMPRESSION: Calcification the anterior longitudinal ligament suggestive of ankylosing spondylitis. Superimposed degenerative disc disease and arthropathy particularly in the lower lumbar spine. Approved by: Mele Carrasco M.D. on 04/26/2024 at 14:17
== END ==
PROVIDERS: PCP Internal Medicine; Referring Provider Physical Medicine & Rehabilitation; Visit Provider Physical Medicine & Rehabilitation
DX: M51.16 Intervertebral disc disorders with radiculopathy, lumbar region (principal); M47.26 Other spondylosis with radiculopathy, lumbar region; M48.062 Spinal stenosis, lumbar region with neurogenic claudication
CPT/HCPCS: 72110

== ENCOUNTER 2024-05-17 09:35 | Outpatient (CLI) | payer MEDICARE, OTHER, SELFPAY ==
[2024-02-22 13:08] VITALS: BMI 37.9
--- NOTE | 2024-05-17 09:40 | DI.RAD.S_ITS ---
PROCEDURE: PAIN L INTERLAMINAR/CAUDAL INJ INDICATIONS: L4/5 TL CARMINE COMPARISON: [facility], , PAIN L INTERLAMINAR/CAUDAL INJ, 01/27/2024, 14:18. FINDINGS: Fluoroscopic spot filming was performed to verify placement of spinal needles at the L4-5 level(s), as labeled on the films. Appropriate location(s) of the needle tip(s) was confirmed by injection of iodinated contrast. IMPRESSION: Contrast a needle placement overlying L4-5. Dictated by: Celine Murcia M.D. on 05/17/2024 at 13:17 Approved by: Celine Murcia M.D. on 05/17/2024 at 13:18
[2024-05-17 11:03] VITALS: BP 146/65; PULSE 65; RESP 20; TEMP 36.3; O2SAT 97
[2024-05-17 11:30] VITALS: BP 162/73; PULSE 60; RESP 18; O2SAT 100
[2024-05-17] MEDS: BUPIVACAINE 0.25% (PF) VIAL 2 ML INJ (11:34)
[2024-05-17 11:35] VITALS: BP 143/76; PULSE 60; RESP 19; O2SAT 100
[2024-05-17] MEDS: iopamidoL 15 ML VIAL 3 ML INJ (11:35)
[2024-05-17] MEDS: BETAMETHASONE 30 MG/5 ML MDV 6 MG INJ (11:35)
[2024-05-17] MEDS: DEXAMETHASONE 10 MG/ML VIAL INJ (11:35)
[2024-05-17 11:40] VITALS: BP 130/75; PULSE 55; RESP 18; O2SAT 100
--- NOTE | 2024-05-17 11:43 | P.PCN_ITS ---
Date/Time/Diagnoses Date of procedure: 06/01/24 Time of procedure: 11:43 Pre-procedure diagnosis: 1. HNP WITH RADICULAR FEATURES, 2. MULTILEVEL CENTRAL STENOSIS, Post-procedure diagnosis: same Procedure Notes Procedure: 1. FLUOROSCOPICALLY GUIDED CONTRAST CONTROLLED INTERLAMINAR EPIDURAL STEROID INJECTION -L4/5 Indications: Charisma is referred by Dr. Naqvi for treatment of Bilateral Foraminal Stenosis R>L LE symptoms. Physician: Sundeep Stearns Total Fluoroscopy time (seconds): 7 Total sedation minutes: 0 Complications: none Procedure in detail & Post-procedure care: FINDINGS Multilevel Central Spinal Stenosis with Nerve Root Compression DESCRIPTION OF PROCEDURE Fluoroscopically guided, contrast-controlled L4/5 translaminar epidural steroid injection. Following review of allergy and review of potential side effects and complications, including, but not necessarily limited to, infection, allergic reaction, local tissue breakdown, temporary as well as permanent nerve injury, paralysis, stroke and possible , the patient indicated that the patient understood and agreed to proceed. An informed consent document was signed by the patient, witnessed by a nurse, and placed in the patient's chart. Additionally, other treatment options including modalities, medications, and physical therapy were reviewed with the patient. After review of previous anaesthesic history and IV conscious sedation the patient was deemed safe to proceed with today?s procedure with IV conscious sedation as ASA class II designation. Safety time-out was performed to confirm patient ID, procedure to be performed and site of procedure. IV sedation was not administered by the RN after DO order, titrated to patient comfort during the course of the procedure while the patient remained responsive to all verbal commands In the prone position, following sterile prep and drape of the lumbar region, the L4/5 translaminar space was identified fluoroscopically. The skin was anesthetized via a 25-gauge, 1.5inch needle with 1% lidocaine solution. At this point, a 22-gauge short bevel spinal needle was atraumatically introduced and advanced under fluoroscopic guidance into the region of the L4/5 translaminar space. Depth was confirmed on lateral view. Radiological data, including multiple fluoroscopic views of the lumbar spine, reveal a spinal needle at the L4/5 translaminar space. Lateral views then show placement of the needle in the epidural space. Subsequent views show contrast material flowing superiorly and inferiorly in the epidural space. No vascular or intrathecal uptake is observed. At this point, using loss of resistance technique with saline and air, the epidural space was entered. This was confirmed following negative aspiration with injection of approximately 1.5cc of Isovue 200, showing excellent epidural flow without vascular or intrathecal uptake. At this point, 1cc of 1% lidocaine solution combined with 2cc or 10mg of dexamethasone and 6mg betamethasone was injected without incident. The patient tolerated the procedure well without signs or symptoms of complications prior to transfer to the recovery area continued monitoring with out incident. The patient was then transferred to the recovery area where they were observed for an appropriate period of time after the injection. The patient reported a VAS score of 6 prior to the procedure and a post- procedure VAS of 0. POST OP INSTRUCTIONS The patient was provided a Pain Log to continue to record their response to the target-specific procedure prior to follow-up visit with their referring physician. Additionally, specific post-injection care instructions and a contact number to our office were provided if concerns arise regarding possible complications associated with the procedure are suspected.
[2024-05-17 11:50] VITALS: BP 153/67; PULSE 54; RESP 12; O2SAT 94
== END 2024-05-17 11:57 | disposition home or self-care (01) ==
PROVIDERS: PCP Internal Medicine; Referring Provider Physical Medicine & Rehabilitation; Visit Provider Physical Medicine & Rehabilitation
DX: M51.16 Intervertebral disc disorders with radiculopathy, lumbar region (principal); M48.061 Spinal stenosis, lumbar region without neurogenic claudication
CPT/HCPCS: 62323; J0702; J1100; J3490

== ENCOUNTER → 2024-07-06 13:34 | Outpatient (CLI) | payer MEDICARE, OTHER, SELFPAY ==
[2024-02-22 13:08] VITALS: BMI 37.9
--- NOTE | 2024-07-06 13:35 | DI.MRI.S_ITS ---
PROCEDURE: MR HEAD/BRAIN WO/W CON INDICATIONS: AMNESIA TECHNIQUE: Noncontrast axial T1 spin echo, axial T2 fast spin echo, sagittal and axial FLAIR, coronal T2 fast spin echo, axial gradient echo, axial diffusion and ADC through the brain. After the administration of contrast, axial and coronal and sagittal 3D VIBE or T1 spin echo with fat saturation through the brain. COMPARISON: None. FINDINGS: CSF Spaces: Basal cisterns are patent. No extra-axial fluid collections. Ventricles are normal in size and shape. Brain: No intracranial masses or hemorrhage. Adams/white matter interface is normal. Brainstem appears normal. Diffusion-weighted sequence is unremarkable without evidence of acute infarct. Normal intravascular flow voids are present. Mild atrophy and moderate multifocal/confluent white matter chronic ischemic changes. Skull and face: Calvarial marrow is normal in signal. Orbits appear normal. Bilateral intraocular lens replacements noted. Sinuses: Sinuses and mastoids appear clear. IMPRESSION: Atrophy and chronic ischemic change without acute infarct, hemorrhage or mass lesion Approved by: Mele Carrasco M.D. on 07/06/2024 at 18:20
== END ==
PROVIDERS: PCP Internal Medicine; Referring Provider Physician Assistant Medical; Visit Provider Physician Assistant Medical
DX: R41.3 Other amnesia (principal)
CPT/HCPCS: 70553; A9579

== ENCOUNTER → 2025-02-15 09:35 | Outpatient (CLI) | payer MEDICARE, OTHER, SELFPAY ==
[2024-02-22 13:08] VITALS: BMI 37.9
--- NOTE | 2025-02-15 09:36 | DI.US.S_ITS ---
PROCEDURE: US PELVIC COMPLETE INDICATIONS: PELVIC PAIN TECHNIQUE: Real-time scanning was performed of the pelvic organs, with image documentation. Additional endovaginal scanning was necessary due to incomplete visualization of the adnexal and endometrial structures by transabdominal scanning. COMPARISON: [facility], CT, CT ABDOMEN LIVER PROTOCOL, 01/09/2023, 11:54. [facility], US, US PELVIC COMPLETE, 10/15/2023, 14:33. FINDINGS: Uterus: Absent. Ovaries: Right ovary is not visualized. Left ovary measures 2.2 x 1.4 x 1.3 cm, volume of 2 cc. Left ovarian anechoic cyst measuring 1.2 x 1.1 x 0.9 cm. (Previously 1.5 x 1.1 x 1 cm on 10/15/2023). Other: No pathologic free abdominal or pelvic fluid. IMPRESSION: Source for pelvic pain is not identified. Simple left ovarian cyst measuring 1.2 cm. Right ovary is not seen. Prior hysterectomy. CT abdomen pelvis with IV contrast could be considered for further evaluation. We strive to produce accurate, complete, and clear reports of imaging services. To assist us in improving patient care, this report was composed using standard report templates and voice recognition software. Therefore, it may contain abnormal punctuation, insertions and/or omissions. Occasional wrong-word or sound-alike substitutions may occur. Though we review the report and make efforts to correct it, we do recommend that the report be read carefully in proper context to recognize any text inaccuracies. Dictated by: Antony Earl M.D. on 02/15/2025 at 16:11 Approved by: Antony Earl M.D. on 02/15/2025 at 16:14
== END ==
LOC: US 09:36
PROVIDERS: PCP Internal Medicine
DX: N83.292 Other ovarian cyst, left side (principal); R10.2 Pelvic and perineal pain; Z90.710 Acquired absence of both cervix and uterus
CPT/HCPCS: 76856

== ENCOUNTER → 2025-05-02 12:08 | Outpatient (CLI) | payer MEDICARE, OTHER, SELFPAY ==
[2024-02-22 13:08] VITALS: BMI 37.9
--- NOTE | 2025-05-02 12:11 | DI.CT.S_ITS ---
PROCEDURE: CT ABDOMEN PELVIS W CON INDICATIONS: Pelvic pain in female TECHNIQUE: After the administration of intravenous contrast, axial sections acquired from the lung bases to the pubic symphysis. Coronal and sagittal reformats were performed. For radiation dose reduction, the following was used: automated exposure control, adjustment of mA and/or kV according to patient size. COMPARISON: [facility], CT, CT KIDNEY URETER BLADDER (KUB), 06/05/2023, 20:14. [facility], CT, CT ABDOMEN PELVIS W CON, 01/20/2020, 12:36. FINDINGS: Image quality: Diagnostic. Lower Chest: No significant findings. ABDOMEN: Liver: No solid mass. Gallbladder: Status post cholecystectomy. Stable appearance of the peripheral calcified cystic structure adjacent to the right hepatic lobe. Biliary ducts: No biliary dilation. Pancreas: No ductal dilation. Spleen: Size is within normal limits. Adrenal Glands: No adrenal nodules. Kidneys and Ureters: No hydronephrosis. No solid mass. No complex renal cystic lesion which requires follow up. Stomach and Bowel: Normal colonic caliber, without significant wall thickening. Peritoneum: No abnormal intraperitoneal fluid. No free air. Ventral Wall: No significant ventral hernia. Abdominal Nodes: No retroperitoneal or mesenteric adenopathy by size criteria. Vessels: Aorta and inferior vena cava are normal in size. PELVIS: Pelvic Organs: Status post hysterectomy. No adnexal mass seen. Bladder: No bladder wall thickening, accounting for underdistention. Pelvic Nodes: No enlarged lymph nodes. Miscellaneous: No inguinal hernias are seen. Bones: No aggressive osseous abnormality. IMPRESSION: No acute intra-abdominal abnormality seen. Dictated by: Jose Chandra M.D. on 05/02/2025 at 17:37 Approved by: Jose Chandra M.D. on 05/02/2025 at 17:42
[2025-05-02 12:48] LABS: Estimated Glomerular Filt Rate > 60 mL/min (>60)
== END ==
LOC: CT 12:10
PROVIDERS: Radiology Diagnostic Radiology
DX: R10.20 Pelvic and perineal pain unspecified side (principal); Z90.49 Acquired absence of other specified parts of digestive tract; Z90.710 Acquired absence of both cervix and uterus
CPT/HCPCS: 36415; 74177; 82565; Q9967